=== PATIENT | male | born 1935 | race Caucasian/White ===

== ENCOUNTER → 2017-05-20 | Outpatient (CLI) | payer MEDICARE, BC ==
[~2017-05-20] MED LIST: ATORVASTATIN CA80 MG PO; B-12500 MCG PO; COUMADIN2 MG PO; DIPHENHYDRAMINE25 M1 PO; ELIQUIS PO; FLUTICASONE INH; ISOSORBIDE MONO30 M1 PO; LANOXIN125 MCG PO; LOVENOX80 MG/0.8 SQ; METOPROLOL TART50 MG PO; NORCO 5-325 TA1 EACH PO; OCUVITE SOFTGE1 EACH PO; PLAVIX75 MG PO; XARELTO10 MG PO; Z.0.ALLOPURINOL300 M PO; Z.0.CRESTOR10 MG PO; Z.0.GABAPENTIN300 MG PO; Z.0.OMEPRAZOLE20 M1 PO; [UNRECOGNIZED DRUG - OTHER] PO
[2017-05-20 13:20] LABS: CREATININE, SERUM 2.83 mg/dL (0.72-1.25)
--- NOTE | 2017-05-20 14:36 | Diagnostic Imaging Report ---
EXAM: CT Chest WITHOUT contrast INDICATION: \[id number] \S\1330 \S\LUNG CONSOLIDATION COMPARISON: CT dated 09/20/2015 TECHNIQUE: Chest was scanned utilizing a multidetector helical scanner from the lung apex through the level of the adrenal glands without administration of IV contrast. Absence of intravenous contrast decreases sensitivity for detection of lymphadenopathy and vascular pathology. Coronal and sagittal reformations were obtained. Routine protocol was performed. IV CONTRAST: None COMPLICATIONS: None RADIATION DOSE: Total DLP: 547.82 mGy*cm Estimated effective dose: (DLP x 0.014 x size factor) mSv CTDIvol has been reviewed. It is below the limits set by the Radiation Protocol Committee (RPC). FINDINGS: LINES/ TUBES: Triple lead left chest wall cardiac device in place. LUNGS AND AIRWAYS: Unchanged peripheral right upper lobe, small areas of scarring (series 3, image 25). Slightly less prominent lateral right middle lobe scarring with traction bronchiectasis (series 3, image 71). Bilateral calcified granulomas. Airways are normal. PLEURA: Large right and small left pleural effusions, new from prior exam. HEART AND MEDIASTINUM: The thyroid gland is normal. No mediastinal, hilar or axillary lymphadenopathy. Cardiomegaly. There is no pericardial effusion. Mitral valve prosthesis. Atherosclerotic calcification of coronary arteries and aortic annulus. Main pulmonary artery measures 3.8 cm, suggestive of pulmonary hypertension. Distended ascending thoracic aorta measuring 4.2 cm at the level of right pulmonary artery. UPPER ABDOMEN: Numerous punctate splenic calcified granulomas. New small volume abdominal ascites. Superior tip of aortic stent is visualized. BONES: Degenerative changes of thoracic spine. SOFT TISSUES: Anasarca. IMPRESSION: New large right and small left pleural effusions. Lateral right middle lobe consolidation is less prominent from prior CT and is probably scarring with traction bronchiectasis. New abdominal ascites and anasarca. Evidence of prior granulomatous disease. Signed by: Dr. Bernabe Schmid MD on 05/20/2017 2:32 PM
== END ==
LOC: CT 12:16
PROVIDERS: ATTEND Family Medicine
DX: J18.1 Lobar pneumonia, unspecified organism (principal)
CPT/HCPCS: 36415; 71250; 82565; 84520

== ENCOUNTER 2017-06-01 20:11 | Emergency (ER) | payer MEDICARE, BC ==
[~2017-06-01] VITALS: Ht 182.9 cm; Wt 86.2 kg
--- OUTSIDE RECORDS SUMMARY | 2017-06-01 20:13 | XMS REPORT ---
Author Author [facility] Address Unknown Phone Unavailable Care Team Providers Care Unclaimed Property Officer Name Role Phone NELIA FULLER Unavailable Unavailable JEFF OGDEN Unavailable Unavailable Problems This patient has no known problems. Allergies, Adverse Reactions, Alerts This patient has no known allergies or adverse reactions. Medications This patient has no known medications. Results Test Description Test Time Test Comments Text Results Atomic Results Result Comments CHEST XRAY POST PROCEDURE [place] [address] Patient Name: TERESITA ORTIZ MR #: [id number] : 1935 Age/Sex: 81/M Req #: [id number] Adm Physician: Ordered by: LESLIE MCKNIGHT MD Report #: [id number] Location: US Room/Bed: Procedure: [id number] DX/CHEST XRAY POST PROCEDURE Exam Date: Exam Time: REPORT STATUS: Signed PROCEDURE: CHEST XRAY POST PROCEDURE COMPARISON: CT chest 05/20/2017. INDICATIONS: POST THORACENTESIS FINDINGS: Lines: Left chest cardiac device in proper position. LUNGS: No consolidations or edema. Bibasilar atelectasis. PLEURA: Decrease in the right pleural effusion. Small bilateral pleural effusions remain. No pneumothorax. HEART T MEDIASTINUM: The heart is within normal size-limits. BONES T SOFT TISSUES: No acute findings. CONCLUSION: Decrease in the right pleural effusion. No pneumothorax status post thoracentesis. Dictated by: Leslie Mcknight M.D. on 06/01/2017 at 15:03 Electronically approved by: Leslie Mcknight M.D. on 06/01/2017 at 15:03 Dictated By: LESLIE MCKNIGHT MD 1502 Transcribed By: SARAH on 06/01/17 1503 COPY TO: LESLIE MCKNIGHT MD THORACENTESIS/US GUIDED [place] [address] Patient Name: TERESITA ORTIZ MR #: [id number] : 1935 Age/Sex: 81/M Req #: [id number] [facility] Physician: Ordered by: NELIA FULLER MD Report #: [id number] Location: Room/Bed: Procedure: [id number] US/THORACENTESIS/US GUIDED Exam Date: Exam Time: REPORT STATUS: Signed PROCEDURE: ULTRASOUND GUIDED THORACENTESIS COMPARISON: None. INDICATIONS: RT THORACENTESIS FINDINGS: After informed consent was obtained, the patient was placed in the sitting position and preliminary ultrasound of the posterior chest identified a safe route into the right pleural effusion. The overlying skin was prepped and draped in usual sterile fashion. Lidocaine 1% was used for local anesthesia. Under ultrasound guidance, a centesis needle was advanced into the pleural fluid and 1700 cc were aspirated. The patient tolerated the procedure well and there were no immediate post-procedural complications. A post-thoracentesis chest radiograph will be obtained. CONCLUSION: Uncomplicated ultrasound-guided right thoracentesis with removal of 1700 cc. Dictated by: Leslie Mcknight M.D. on 06/01/2017 at 14 :58 Electronically approved by: Leslie Mcknight M.D. on 06/01/2017 at 14:58 Dictated By: LESLIE MCKNIGHT MD 57 Transcribed By: SARAH on 06/01/171457 COPY TO : NELIA FULLER MD CT CHEST WO [facility] [address] [place] [address] Patient Name: TERESITA ORTIZ MR #: [id number] : 1935 Age/Sex: 81/M Req # : [id number] Adm Physician: Ordered by: JEFF OGDEN DO Report #: [id number] Location: CT Room/Bed: Procedure: [id number] CT/CT CHEST WO Exam Date: 05/20/17 Exam Time: 1330 REPORT STATUS: Signed EXAM: CT Chest WITHOUT contrast INDICATION: COMPARISON: CT dated 09/20/2015 TECHNIQUE: Chest was scanned utilizing a multidetector helical scanner from the lung apex through the level of the adrenal glands without administration of IV contrast. Absence of intravenous contrast decreases sensitivity for detection of lymphadenopathy and vascular pathology. Coronal and sagittal reformations were obtained. Routine protocol was performed. IV CONTRAST: None COMPLICATIONS: None RADIATION DOSE: Total DLP: 547.82 mGy*cm Estimated effective dose: (DLP x 0.014 x size factor) mSv CTDIvol has been reviewed. It is below the limits set by the Radiation Protocol Committee (RPC). FINDINGS: LINES/ TUBES: Triple lead left chest wall cardiac device in place. LUNGS AND AIRWAYS: Unchanged peripheral right upper lobe, small areas of scarring (series 3, image 25). Slightly less prominent lateral right middle lobe scarring with traction bronchiectasis (series 3, image 71). Bilateral calcified granulomas. Airways are normal. PLEURA: Large right and small left pleural effusions, new from prior exam. HEART AND MEDIASTINUM: The thyroid gland is normal. No mediastinal, hilar or axillary lymphadenopathy. Cardiomegaly. There is no pericardial effusion. Mitral valve prosthesis. Atherosclerotic calcification of coronary arteries and aortic annulus. Main pulmonary artery measures 3.8 cm , suggestive of pulmonary hypertension. Distended ascending thoracic aorta measuring 4.2 cm at the level of right pulmonary artery. UPPER ABDOMEN: Numerous punctate splenic calcified granulomas. New small volume abdominal ascites. Superior tip of aortic stent is visualized. BONES: Degenerative changes of thoracic spine. SOFT TISSUES: Anasarca. IMPRESSION: New large right and small left pleural effusions. Lateral right middle lobe consolidation is less prominent from prior CT and is probably scarring with traction bronchiectasis. New abdominal ascites and anasarca. Evidence of prior granulomatous disease. Signed by: Dr. Bernabe Mendieta MD on 05/20/2017 2:32 PM Dictated By: BERNABE MENDIETA MD 1432 Transcribed By: VIC on 05/20/17 1432 COPY TO: JEFF OGDEN DO
== END 2017-06-01 23:07 | disposition home or self-care (01) ==
LOC: FSED 20:40
DX: J95.830 Postprocedural hemorrhage of a respiratory system organ or structure following a respiratory system procedure (principal); I50.9 Heart failure, unspecified; I10 Essential (primary) hypertension
CPT/HCPCS: 71046; 99284

== ENCOUNTER → 2017-06-01 | Outpatient (CLI) | payer MEDICARE, BC ==
--- NOTE | 2017-06-01 14:58 | Diagnostic Imaging Report ---
PROCEDURE: ULTRASOUND GUIDED THORACENTESIS COMPARISON: None. INDICATIONS:RT THORACENTESIS FINDINGS: After informed consent was obtained, the patient was placed in the sitting position and preliminary ultrasound of the posterior chest identified a safe route into the right pleural effusion. The overlying skin was prepped and draped in usual sterile fashion. Lidocaine 1% was used for local anesthesia. Under ultrasound guidance, a centesis needle was advanced into the pleural fluid and 1700 cc were aspirated. The patient tolerated the procedure well and there were no immediate post-procedural complications. A post-thoracentesis chest radiograph will be obtained. CONCLUSION: Uncomplicated ultrasound-guided right thoracentesis with removal of 1700 cc. Dictated by: Marek Duran M.D. on 06/01/2017 at 14:58 Electronically approved by: Marek Duran M.D. on 06/01/2017 at 14:58
--- NOTE | 2017-06-01 15:02 | Diagnostic Imaging Report ---
PROCEDURE: CHEST XRAY POST PROCEDURE COMPARISON: CT chest 05/20/2017. INDICATIONS: POST THORACENTESIS FINDINGS: Lines: Left chest cardiac device in proper position. LUNGS: No consolidations or edema. Bibasilar atelectasis. PLEURA: Decrease in the right pleural effusion. Small bilateral pleural effusions remain. No pneumothorax. HEART \T\ MEDIASTINUM: The heart is within normal size-limits. BONES \T\ SOFT TISSUES: No acute findings. CONCLUSION: Decrease in the right pleural effusion. No pneumothorax status post thoracentesis. Dictated by: Marek Duran M.D. on 06/01/2017 at 15:03 Electronically approved by: Marek Duran M.D. on 06/01/2017 at 15:03
[2017-06-01 15:46] LABS: BODY FLUID APPEARANCE SL.CLOUDY; BODY FLUID COLOR STRAW; BODY FLUID TYPE PLEURAL
[2017-06-01 15:50] LABS: RBC,BODY FLUID 13 cells/uL; WBC,BODY FLUID 8 cells/uL
[2017-06-01 16:18] LABS: LYMPHOCYTES,BODY FLUID 8 %; MONO/MACROPHG,BODY FLUID 77 %; NEUTROPHILS,BODY FLUID 3 %; OTHER CELLS,BODY FLUID 12 %
== END ==
LOC: US 12:07
PROVIDERS: ATTEND Internal Medicine
DX: J90 Pleural effusion, not elsewhere classified (principal)
CPT/HCPCS: 32555; 36415; 71045; 83615; 84157; 84478; 88112; 88305; 89051

== ENCOUNTER → 2017-07-07 | Outpatient (CLI) | payer MEDICARE, BC ==
--- NOTE | 2017-07-07 13:15 | Diagnostic Imaging Report ---
PROCEDURE: CT CHEST WITHOUT CONTRAST CT scan of the chest WITHOUT intravenous contrast, using standard protocol. TECHNIQUE: The chest was scanned utilizing a multidetector helical scanner from the apex to the level of the adrenal glands. No IV contrast was administered as per physician request. Coronal and sagittal multiplanar reformations were obtained. COMPARISON: CT chest 05/20/2017. INDICATIONS: F/U, NICOTINE DEPENDENCE FINDINGS: Lines/tubes: Left chest cardiac device with lead position within the right atrium and ventricle. Lungs and Airways: Stable bibasilar atelectasis. No parenchymal mass. No focal consolidation. Stable scarring in the right upper lobe. Bilateral calcified granulomas. Pleura: Bilateral moderate pleural effusions, increased since the previous examination. Heart and mediastinum: The thyroid gland is normal. No significant mediastinal, hilar or axillary lymphadenopathy is seen. The heart and pericardium are within normal limits. Atherosclerotic calcifications. Soft tissues: Normal. Abdomen: Limited views of the upper abdomen show no abnormality within the visualized liver, spleen, pancreas, or kidneys. The adrenal glands are normal. Stable splenic granulomas. Minimal ascites is present in the right upper quadrant. Bones: The visualized bony thorax is within normal limits. Degenerative changes of the thoracic spine. IMPRESSION: Interval increase in size of the bilateral moderate pleural effusions, right greater the left. Dictated by: Marek Duran M.D. on 07/07/2017 at 13:15 Electronically approved by: Marek Duran M.D. on 07/07/2017 at 13:15
== END ==
LOC: CT 09:13
PROVIDERS: ATTEND Internal Medicine
DX: Z87.891 Personal history of nicotine dependence (principal)
CPT/HCPCS: 71250

== ENCOUNTER → 2017-09-01 | Outpatient (CLI) | payer MEDICARE, BC ==
[2017-09-01 17:30] LABS: ANION GAP 15.8 mmol/L (8-16); CALCIUM 9.4 mg/dL (8.4-10.2); CREATININE, SERUM 2.64 mg/dL (0.72-1.25); POTASSIUM 4.8 mmol/L (3.5-5.1)
--- NOTE | 2017-09-01 17:36 | Diagnostic Imaging Report ---
PROCEDURE: Frontal and lateral views of the chest. COMPARISON: Patients [facility], CT, CT CHEST WO, 07/07/2017, 9:38. INDICATIONS: NICOTINE DEPENDENCE, FLUID IN LUNGS FINDINGS: Lines/tubes: Multilead cardiac device in the left upper chest, with lead distal tips projecting in the right atrium, right ventricle and coronary sinus. Lungs: The lungs are well inflated. Stable linear scarring in the right middle lobe. Mild bilateral lower lobe compressive atelectasis. There is no evidence of pneumonia or pulmonary edema. Pleura: Small bilateral pleural effusions. Heart and mediastinum: Stable mild cardiomegaly. Pulmonary vasculature is normal. Tortuous aorta. Bones: No acute bony abnormality. IMPRESSION: 1. small bilateral pleural effusions with associated bilateral lower lobe atelectasis. 2. Stable linear scarring in the right middle lobe. No consolidation or pulmonary edema. Chacorta Morales M.D. Dictated by: Chacorta Morales M.D. on 09/01/2017 at 17:38 Electronically approved by: Chacorta Morales M.D. on 09/01/2017 at 17:38
== END ==
LOC: RAD 16:21
PROVIDERS: ATTEND Internal Medicine
DX: Z87.891 Personal history of nicotine dependence (principal)
CPT/HCPCS: 36415; 71046; 80048

== ENCOUNTER → 2018-07-31 | Outpatient (CLI) | payer MEDICARE, BC ==
--- NOTE | 2018-07-31 14:34 | Diagnostic Imaging Report ---
EXAMINATION: PA and lateral views of the chest. COMPARISON: CT chest 05/20/2017 . CLINICAL HISTORY: Shortness of breath DISCUSSION: Left subclavian approach implantable cardiac device body and leads. Lungs are well-inflated and without focal airspace consolidation, pleural effusion, or pneumothorax. Linear opacities in both lung bases likely reflect fibrotic change or subsegmental atelectasis. Normal heart size. Tortuous thoracic aorta with atherosclerotic calcification. Enlargement of the main pulmonary artery suggests underlying pulmonary hypertension. Radiopaque mesh device projects over the heart shadow, shown to lie within the left atrial appendage on comparison CT. No overt pulmonary edema. No acute osseous abnormality. IMPRESSION: No acute cardiopulmonary abnormality. Subsegmental atelectasis or linear fibrotic change in the right middle lobe and left lower lobe. Signed by: Dr. Blayne Falk M.D. on 07/31/2018 2:30 PM
== END ==
LOC: RAD 13:54
PROVIDERS: ATTEND Internal Medicine Nephrology
DX: R06.02 Shortness of breath (principal)
CPT/HCPCS: 71046

== ENCOUNTER 2018-08-18 16:19 | Emergency (ER) | payer MEDICARE, BC ==
[~2018-08-18] VITALS: Ht 185.4 cm; Wt 86.2 kg
--- OUTSIDE RECORDS SUMMARY | 2018-08-18 16:24 | XMS REPORT | Continuity of Care Document ---
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,I10 Active 02/25/2016 [facility] AFIB Active 01/01/2016 [facility] PAROXYSMAL ATRIAL FIBRILATION Active 01/01/2016 [facility] Atrial fibrillation Resolved Problem 07/29/2018 [facility] Kidney carcinoma Resolved Problem 07/29/2018 [facility] CHF (<span ID="[id number]">Confirmed</span>) Resolved Problem 07/29/2018 [facility] Hyperlipidemia Resolved Problem 07/29/2018 [facility] HTN (<span ID="[id number]">Confirmed</span>) Resolved Problem 07/29/2018 [facility] ASHLEY (<span ID="[id number]">Confirmed</span>) Resolved Problem 07/29/2018 [facility] Cyst of kidney, [facility]29/[facility] Other specified disorders of kidney and ureter 07/29/2018 [facility] Abdominal aortic ectasia 07/29/2018 [facility] OTHER SPECIFIED CONGENITAL DEFORMITIES Active [facility] CHRONIC ATRIAL FIBRILLATION Active [facility] CHRONIC SYSTOLIC (CONGESTIVE) HEART FAIL Active [facility] ESSENTIAL (PRIMARY) HYPERTENSION Active [facility] Medications Medication Details Route Status Patient Instructions Ordering Provider Order Date Source Aspirin 81 MG Enteric Coated Tablet 81 mg=1 tab, PO, Daily, 0 Refill(s) Active 02/12/2016 [facility] apixaban 2.5 mg oral tablet 2.5 mg=1 tab, PO, Q12H, 0 Refill(s) Active 02/12/2016 [facility] metoprolol 50 mg oral tablet, extended release 50 mg=1 tab, PO, Daily, 0 Refill(s) Active 02/12/2016 [facility] atorvastatin 20 mg oral tablet 20 mg=1 tab, PO, Bedtime, 0 Refill(s) Active 02/12/2016 [facility] allopurinol 100 mg oral tablet 100 mg=1 tab, PO, Daily, 0 Refill(s) Active 02/12/2016 [facility] Aspirin 81 mg, 1 tab, Route: PO, Drug form: ECTAB, Daily, Dosing Weight 86.364, kg, Start date: 02/12/16 9:00:00 PASTRY MIXER, Duration: 30 day, Stop date: 03/12/16 9:00:00 CSTNotes: Do not crush or chew. (Same As: Ecotrin) Inactive 02/12/2016 [facility] Allopurinol 100 mg, 1 tab, Route: PO, Drug form: TAB, Daily, Dosing Weight 86.364, kg, Start date: 02/12/16 9:00:00 PASTRY MIXER, Duration: 30 day, Stop date: 03/12/16 9:00:00 CSTNotes: (Same as: Zyloprim) Inactive 02/12/2016 [facility] Benzocaine 15 MG / Menthol 3.6 MG Lozenge [Cepacol Sore Throat Pain Relief 15/3.6] 1 lozenge, Route: MUCOUS MEM, Drug Form: ELIZA, Dosing Weight 86.364, kg, Q4H, PRN Sore Throat, Start date: 02/11/16 22:31:00 PASTRY MIXER, Duration: 30 day, Stop date: 03/12/16 22:30:00 CSTNotes: Cepacol lozenges Dispense 1 box=16 lozenges (Same As: Cepacol Lozenges) No Longer Active 02/12/2016 [facility] cefdinir 300 MG Oral Capsule 300 mg, 1 cap, Route: PO, Drug form: CAP, Q12H, Dosing Weight 86.364, kg, Start date: 02/11/16 21:00:00 PASTRY MIXER, Duration: 30 day, Stop date: 03/12/16 9:00:00 CSTNotes: (Same As: Omnicef) No Longer Active 02/12/2016 [facility] atorvastatin 20 mg, 1 tab, Route: PO, Drug form: TAB, Bedtime, Dosing Weight 86.364, kg, Start date: 02/11/16 21:00:00 PASTRY MIXER, Duration: 30 day, Stop date: 03/11/16 21:00:00 CSTNotes: (Same As: Lipitor) No Longer Active 02/12/2016 [facility] Eliquis 2.5 mg, 1 tab, Route: PO, Drug form: TAB, Q12H, Dosing Weight 86.364, kg, Start date: 02/11/16 21:00:00 PASTRY MIXER, Duration: 30 day, Stop date: 03/12/16 9:00:00 CSTNotes: Same as: Eliquis No Longer Active 02/12/2016 [facility] Tylenol 325 mg, 1 tab, Route: PO, Drug form: TAB, Q6H, Dosing Weight 86.364, kg, PRN Pain Score 1-3, Start date: 02/11/16 20:38:00 PASTRY MIXER, Duration: 30 day, Stop date: 03/12/16 20:37:00 CSTNotes: Do not exceed 4 gm/day. (Same as: Tylenol) No Longer Active 02/12/2016 [facility] metoprolol extended release 50 mg, 1 tab, Route: PO, Drug form: ERTAB, Daily, Start date: 02/11/16 18:00:00 PASTRY MIXER, Duration: 30 day, Stop date: 03/12/16 9:00:00 CSTNotes: (Same as: Toprol XL) May split tab, but do not crush. No Longer Active 02/12/2016 [facility] pantoprazole 40 mg, 1 tab, Route: PO, Drug form: ECTAB, QPM, Dosing Weight 86.364, kg, Start date: 02/11/16 17:00:00 PASTRY MIXER, Duration: 30 day, Stop date: 03/11/16 17:00:00 CSTNotes: Tablet should not be chewed or cr ushed. (Same as: Protonix) No Longer Active 02/11/2016 [facility] cefdinir 300 MG Oral Capsule 300 mg=1 cap, PO, Q12H, # 14 cap, 0 Refill(s) Active 02/11/2016 [facility] atorvastatin 20 mg oral tablet 20 mg=1 tab, PO, Bedtime, # 30 tab, 0 Refill(s) Active 02/11/2016 [facility] allopurinol 100 mg oral tablet 100 mg=1 tab, PO, Daily, # 60 tab, 0 Refill(s) Active 02/11/2016 [facility] pantoprazole 40 mg oral enteric coated tablet 40 mg=1 tab, PO, Daily, # 30 tab, 0 Refill(s) Active 02/11/2016 [facility] metoprolol 50 mg oral tablet, extended release 50 mg=1 tab, PO, Daily, # 30 tab, 0 Refill(s) Active 02/11/2016 [facility] sodium chloride 0.9% 1000 ml INJ 1,000 mL 1,000 mL, Rate: 50 ml/hr, Infuse over: 20 hr, Route: IV, Dosing Weight 86.364 kg, Total Volume: 1,000, Start date: 02/11/16 9:18:00 PASTRY MIXER, Duration: 30 day, Stop date: 03/12/16 9:17:00 PASTRY MIXER No Longer Active 02/11/2016 [facility] Allergies, Adverse Reactions, Alerts Substance Category Reaction Severity Reaction type Status Date Reported Comments Source No Known Medication Allergies Assertion Drug allergy [facility] Immunizations Immunization Date Given Site Status Last Updated Comments Source Results Order Name Results Value Reference Range Date Interpretation Comments Source Bladder US Bladder US Exam: Bladder ultrasound Reason for Exam: - N18.4 Chronic kidney disease, stage 4 (severe) Comparison Exam: Ultrasound 01/09/2018 Discussion: Multiple sagittal and axial images were obtained of the bladder. There are no abnormal echogenic masses or calcifications seen within the bladder. The mucosa of the bladder is unremarkable. No evidence seen for bladder diverticuli. The right and left ureteral jets are identified. Prostate gland is within normal limits for size. Prevoid bladder volume measures 87.9 cc. Postvoid bladder volume measures 3.4 cc. Impression: 1. Unremarkable bladder ultrasound. 04/26/2018 - - Read by: Jose A Cervantes MD Dictated Date/time: 04/26/18 14:41 Electronically Signed by: Jose A Cervantes MD 04/26/18 14:44 FINAL REPORT [facility] [place] Retroperitoneal Complete US Retroperitoneal Complete US Exam: RETROPERITONEAL ULTRASOUND. Reason for Exam: - N18.4 Chronic kidney disease, stage 4 (severe) Comparison Exam: 01/09/2018 Discussion: Multiplanar grayscale and color Doppler ultrasound of the kidneys, aorta, IVC, and urinary bladder. Right kidney: Size: 10 cm. Cortical thickness measures 0.8 cm. Hydronephrosis: None. Echogenicity: Increased Calculi/Cysts/Masses: A couple of simple small cysts measure up to 1.4 cm. Ureter: none visualized Left kidney: Size: 9.3 cm. Cortical thickness measures 0.9 cm. Hydronephrosis: None. Echogenicity: Increased Calculi/Cysts/Masses: There is a 2.5 cm simple left renal cyst and a couple of smaller cysts. Ureter: none visualized Abdominal aorta/Iliac arteries: The distal aorta is dilated and there is a distal aortic stent. Inferior vena cava: Visualized portions are unremarkable The bladder ultrasound is dictated separately. IMPRESSION: Renal parenchymal echogenicity is increased bilaterally, in keeping with medical renal disease. Bilateral renal cysts. 04/26/2018 - - Read by: uYsra Kelly MD Dictated Date/time: 04/26/18 14:51 Electronically Signed by: Yusra Kelly MD 04/26/18 14:57 FINAL REPORT DAVID Contreras Retroperitoneal Complete US Retroperitoneal Complete US Exam: Bilateral renal ultrasound and bladder ultrasound. Reason for Exam: - ckd stage 4 Comparison Exam: None Discussion: Multiplanar grayscale and color Doppler ultrasound of the kidneys, aorta, IVC, and urinary bladder. Right kidney: Size: 10.0 x 5.0 x 4.8 cm. Cortical thickness measures 1.2 cm. Hydronephrosis: Moderate pelviectasis Echogenicity: Unremarkable Calculi/Cysts/Masses: Multiple cysts are seen. The largest measures 1.6 x 1.5 x 1.4 cm. Left kidney: Size: 9.2 x 4.4 x 4.4 cm. Cortical thickness measures 0.9 cm. Hydronephrosis: None. Echogenicity: Unremarkable Calculi/Cysts/Masses: Multiple cysts are seen. The largest measures 3.0 x 2.8 x 2.5 cm. Abdominal aorta/Iliac arteries: Abdominal aorta is dilated measuring up to 4.4 cm in diameter. Inferior vena cava: Visualized portions are unremarkable Bladder: No mucosal abnormalities identified. No calcified stones seen within the bladder. No bladder diverticuli identified. Prevoid bladder volume measures 246 mL. Postvoid bladder volume measures 9 mL. Bilateral ureteral jets are identified. IMPRESSION: 1. Multiple cysts seen within the kidneys as detailed above. Moderate right renal pelviectasis. Consider further evaluation with CT scan if clinically feasible. 2. Abdominal aorta is dilated measuring up to 4.4 cm in diameter. Recommend 12 month follow-up exam as well as vascular surgery consultation. 01/09/2018 - - Read by: Jose A Cervantes MD Dictated Date/time: 01/09/18 15:35 Electronically Signed by: Jose A Cervantes MD 01/09/18 15:47 FINAL REPORT DAVID Contreras Bladder US Bladder US Exam: Bilateral renal ultrasound and bladder ultrasound. Reason for Exam: - ckd stage 4 Comparison Exam: None Discussion: Multiplanar grayscale and color Doppler ultrasound of the kidneys, aorta, IVC, and urinary bladder. Right kidney: Size: 10.0 x 5.0 x 4.8 cm. Cortical thickness measures 1.2 cm. Hydronephrosis: Moderate pelviectasis Echogenicity: Unremarkable Calculi/Cysts/Masses: Multiple cysts are seen. The largest measures 1.6 x 1.5 x 1.4 cm. Left kidney: Size: 9.2 x 4.4 x 4.4 cm. Cortical thickness measures 0.9 cm. Hydronephrosis: None. Echogenicity: Unremarkable Calculi/Cysts/Masses: Multiple cysts are seen. The largest measures 3.0 x 2.8 x 2.5 cm. Abdominal aorta/Iliac arteries: Abdominal aorta is dilated measuring up to 4.4 cm in diameter. Inferior vena cava: Visualized portions are unremarkable Bladder: No mucosal abnormalities identified. No calcified stones seen within the bladder. No bladder diverticuli identified. Prevoid bladder volume measures 246 mL. Postvoid bladder volume measures 9 mL. Bilateral ureteral jets are identified. IMPRESSION: 1. Multiple cysts seen within the kidneys as detailed above. Moderate right renal pelviectasis. Consider further evaluation with CT scan if clinically feasible. 2. Abdominal aorta is dilated measuring up to 4.4 cm in diameter. Recommend 12 month follow-up exam as well as vascular surgery consultation. 01/09/2018 - - Read by: Jose A Cervantes MD Dictated Date/time: 01/09/18 15:35 Electronically Signed by: Jose A Cervantes MD 01/09/18 15:47 FINAL REPORT DAVID Contreras CHEM PANEL eGFR 23 mL/min/1.73m2 02/12/2016 Result Comment: The eGFR is calculated using the CKD-EPI formula. In most young, healthy individuals the eGFR will be >90 mL/min/1.73m2. The eGFR declines with age. An eGFR of 60-89 may be normal in some populations, particularly the elderly, for whom the CKD-EPI formula has not been extensively validated. Use of the eGFR is not recommended in the following populations: Individuals with unstable creatinine concentrations, including patients and those with serious co-morbid conditions. Patients with extremes in muscle mass or diet. The data above are obtained from the National Kidney Disease Education Program (NKDEP) which additionally recommends that when the eGFR is used in patients with extremes of body mass index for purposes of drug dosing, the eGFR should be multiplied by the estimated BMI. [facility] CHEM PANEL Glucose Lvl 109 mg/dL 70 - 99 02/12/2016 [facility] CHEM PANEL Creatinine Lvl 2.57 mg/dL 0.50 - 1.40 02/12/2016 [facility] CHEM PANEL BUN 40 mg/dL 7 - 22 02/12/2016 [facility] CHEM PANEL Sodium Lvl 141 meq/L 135 - 145 02/12/2016 [facility] CHEM PANEL Chloride Lvl 106 meq/L 95 - 109 02/12/2016 [facility] CHEM PANEL Potassium Lvl 4.6 meq/L 3.5 - 5.1 02/12/2016 [facility] CHEM PANEL Calcium Lvl 8.3 mg/dL 8.5 - 10.5 02/12/2016 [facility] CHEM PANEL CO2 26 meq/L 24 - 32 02/12/2016 [facility] CHEM PANEL AGAP 13.6 meq/L 10.0 - 20.0 02/12/2016 [facility] Chest 2 views DX Chest 2 views DX EXAM: XR CHEST 2 VIEWS DATE: 02/12/2016 3:00 AM PASTRY MIXER INDICATION: Line Placement COMPARISON: None FINDINGS: Left chest wall pacemaker is present with leads overlying the right atrium and right ventricle. The cardiac silhouette is not distinctly enlarged. There is tortuosity and probable ectasia of the descending thoracic aorta. On the lateral view descending thoracic aorta measures 5 cm. Arch measures 4.8 cm. Closure device is partially visualized. While evaluation is limited given semi-erect positioning, no distinct pneumothorax is identified. Linear opacity in the right midlung has the appearance of atelectasis. Minimal atelectasis present in the lung bases. IMPRESSION: 1. Left chest wall pacemaker is above. 2. 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 3. Basilar atelectasis. 02/12/2016 - - Read by: Renan Florian MD Dictated Date/time: 02/12/16 10:32 Electronically Signed by: Renan Florian MD 02/12/16 10:34 FINAL REPORT [facility] CHEM PANEL Phosphorus 3.0 mg/dL 2.5 - 4.5 02/12/2016 [facility] CHEM PANEL Magnesium Lvl 1.9 mg/dL 1.8 - 2.4 02/12/2016 [facility] ELECTROLYTES CO2 19 meq/L 24 - 32 02/12/2016 [facility] ELECTROLYTES Chloride Lvl 107 meq/L 95 - 109 02/12/2016 [facility] ELECTROLYTES Potassium Lvl 6.1 meq/L 3.5 - 5.1 02/12/2016 [facility] ELECTROLYTES Sodium Lvl 137 meq/L 135 - 145 02/12/2016 [facility] ELECTROLYTES Calcium Lvl 8.1 mg/dL 8.5 - 10.5 02/12/2016 [facility] ELECTROLYTES AGAP 17.1 meq/L 10.0 - 20.0 02/12/2016 [facility] ELECTROLYTES Creatinine Lvl 2.28 mg/dL 0.50 - 1.40 02/12/2016 [facility] ELECTROLYTES BUN 34 mg/dL 7 - 22 02/12/2016 [facility] ELECTROLYTES Glucose Lvl 58 mg/dL 70 - 99 02/12/2016 [facility] ELECTROLYTES eGFR 26 mL/min/1.73m2 02/12/2016 Result Comment: The eGFR is calculated using the CKD-EPI formula. In most young, healthy individuals the eGFR will be >90 mL/min/1.73m2. The eGFR declines with age. An eGFR of 60-89 may be normal in some populations, particularly the elderly, for whom the CKD-EPI formula has not been extensively validated. Use of the eGFR is not recommended in the following populations: Individuals with unstable creatinine concentrations, including patients and those with serious co-morbid conditions. Patients with extremes in muscle mass or diet. The data above are obtained from the National Kidney Disease Education Program (NKDEP) which additionally recommends that when the eGFR is used in patients with extremes of body mass index for purposes of drug dosing, the eGFR should be multiplied by the estimated BMI. [facility] HEMATOLOGY Eosinophils 2.8 % 0.0 - 4.0 02/12/2016 [facility] HEMATOLOGY Monocytes 7.2 % 2.0 - 12.0 02/12/2016 [facility] HEMATOLOGY Basophils 0.5 % 0.0 - 1.0 02/12/2016 [facility] HEMATOLOGY Segs-Bands # 6.8 K/CMM 1.5 - 8.1 02/12/2016 [facility] HEMATOLOGY Lymphocytes # 1.1 K/CMM 1.0 - 5.5 02/12/2016 [facility] HEMATOLOGY Eosinophils # 0.2 K/CMM 0.0 - 0.5 02/12/2016 [facility] HEMATOLOGY Monocytes # 0.6 K/CMM 0.0 - 0.8 02/12/2016 [facility] HEMATOLOGY Lymphocytes 12.6 % 20.0 - 40.0 02/12/2016 [facility] HEMATOLOGY Segs 76.9 % 45.0 - 75.0 02/12/2016 [facility] HEMATOLOGY MCH 32.4 pg 27.0 - 31.0 02/12/2016 [facility] HEMATOLOGY MCHC 34.4 g/dL 32.0 - 36.0 02/12/2016 [facility] HEMATOLOGY RDW 13.4 % 11.5 - 14.5 02/12/2016 [facility] HEMATOLOGY MPV 10.1 fL 7.4 - 10.4 02/12/2016 [facility] HEMATOLOGY Platelet 177 K/CMM 133 - 450 02/12/2016 [facility] HEMATOLOGY RBC 3.55 M/CMM 4.70 - 6.10 02/12/2016 [facility] HEMATOLOGY WBC 8.8 K/CMM 3.7 - 10.4 02/12/2016 [facility] HEMATOLOGY Hgb 11.5 g/dL 14.0 - 18.0 02/12/2016 [facility] HEMATOLOGY MCV 94.1 fL 80.0 - 94.0 02/12/2016 [facility] HEMATOLOGY Hct 33.4 % 42.0 - 54.0 02/12/2016 [facility] BLOOD BANK RESULTS RBC product Product available (02/11/16 9:20 AM) 02/11/2016 [facility] BLOOD BANK RESULTS Antibody Scrn Negative (02/11/16 9:20 AM) 02/11/2016 [facility] BLOOD BANK RESULTS ABO/Rh A POS 02/11/2016 [facility] CHEM PANEL Magnesium Lvl 1.8 mg/dL 1.8 - 2.4 02/11/2016 [facility] ELECTROLYTES AGAP 12.5 meq/L 10.0 - 20.0 02/11/2016 [facility] ELECTROLYTES eGFR 25 mL/min/1.73m2 02/11/2016 Result Comment: The eGFR is calculated using the CKD-EPI formula. In most young, healthy individuals the eGFR will be >90 mL/min/1.73m2. The eGFR declines with age. An eGFR of 60-89 may be normal in some populations, particularly the elderly, for whom the CKD-EPI formula has not been extensively validated. Use of the eGFR is not recommended in the following populations: Individuals with unstable creatinine concentrations, including patients and those with serious co-morbid conditions. Patients with extremes in muscle mass or diet. The data above are obtained from the National Kidney Disease Education Program (NKDEP) which additionally recommends that when the eGFR is used in patients with extremes of body mass index for purposes of drug dosing, the eGFR should be multiplied by the estimated BMI. [facility] ELECTROLYTES Sodium Lvl 142 meq/L 135 - 145 02/11/2016 [facility] ELECTROLYTES BUN 38 mg/dL 7 - 22 02/11/2016 [facility] ELECTROLYTES Creatinine Lvl 2.37 mg/dL 0.50 - 1.40 02/11/2016 [facility] ELECTROLYTES Calcium Lvl 9.1 mg/dL 8.5 - 10.5 02/11/2016 [facility] ELECTROLYTES Chloride Lvl 107 meq/L 95 - 109 02/11/2016 [facility] ELECTROLYTES CO2 27 meq/L 24 - 32 02/11/2016 [facility] ELECTROLYTES Potassium Lvl 4.5 meq/L 3.5 - 5.1 02/11/2016 [facility] ELECTROLYTES Glucose Lvl 106 mg/dL 70 - 99 02/11/2016 [facility] HEMATOLOGY Eosinophils # 0.4 K/CMM 0.0 - 0.5 02/11/2016 [facility] HEMATOLOGY Monocytes # 0.7 K/CMM 0.0 - 0.8 02/11/2016 [facility] HEMATOLOGY Lymphocytes 11.6 % 20.0 - 40.0 02/11/2016 [facility] HEMATOLOGY Eosinophils 5.2 % 0.0 - 4.0 02/11/2016 [facility] HEMATOLOGY Monocytes 9.4 % 2.0 - 12.0 02/11/2016 [facility] HEMATOLOGY Basophils 0.6 % 0.0 - 1.0 02/11/2016 [facility] HEMATOLOGY Segs-Bands # 5.2 K/CMM 1.5 - 8.1 02/11/2016 [facility] HEMATOLOGY Lymphocytes # 0.8 K/CMM 1.0 - 5.5 02/11/2016 [facility] HEMATOLOGY Segs 73.2 % 45.0 - 75.0 02/11/2016 [facility] HEMATOLOGY Hct 37.1 % 42.0 - 54.0 02/11/2016 [facility] HEMATOLOGY MCV 93.9 fL 80.0 - 94.0 02/11/2016 [facility] HEMATOLOGY MPV 8.7 fL 7.4 - 10.4 02/11/2016 [facility] HEMATOLOGY Platelet 169 K/CMM 133 - 450 02/11/2016 [facility] HEMATOLOGY MCHC 33.2 g/dL 32.0 - 36.0 02/11/2016 [facility] HEMATOLOGY MCH 31.2 pg 27.0 - 31.0 02/11/2016 [facility] HEMATOLOGY RDW 13.3 % 11.5 - 14.5 02/11/2016 [facility] HEMATOLOGY WBC 7.1 K/CMM 3.7 - 10.4 02/11/2016 [facility] HEMATOLOGY Hgb 12.3 g/dL 14.0 - 18.0 02/11/2016 [facility] HEMATOLOGY RBC 3.96 M/CMM 4.70 - 6.10 02/11/2016 [facility] HEMATOLOGY PT 15.2 s 12.0 - 14.7 02/11/2016 [facility] HEMATOLOGY INR 1.18 0.85 - 1.17 02/11/2016 [facility] HEMATOLOGY PTT 36.1 s 22.9 - 35.8 02/11/2016 [facility] BLOOD BANK RESULTS ABO/Rh A POS 02/02/2016 [facility] BLOOD BANK RESULTS Antibody Scrn Negative (02/02/16 12:25 PM) 02/02/2016 [facility] Vital Signs Vital Sign Value Date Comments Source Height 182.88 cm 03/30/2016 [facility] BMI Calculated 25.82 03/30/2016 [facility] Weight 86.364 03/30/2016 [facility] Systolic (mm Hg) 156 02/12/2016 [facility] Diastolic (mm Hg) 76 02/12/2016 [facility] Systolic (mm Hg) 166 02/12/2016 [facility] Diastolic (mm Hg) 73 02/12/2016 [facility] Systolic (mm Hg) 151 02/12/2016 [facility] Diastolic (mm Hg) 66 02/12/2016 [facility] Respitory Rate 18 02/12/2016 [facility] Respitory Rate 20 02/12/2016 [facility] Respitory Rate 13 02/12/2016 [facility] Weight 86.364 02/11/2016 [facility] BMI Calculated 25.82 02/11/2016 [facility] Height 182.88 cm 02/11/2016 [facility] Encounters Location Location Details Encounter Type Encounter Number Reason For Visit Attending Provider ADM Date DC Date Status Source [facility] Inpatient [id number] Josiane Medina 02/11/2016 02/13/2016 [facility] Outpatient [id number] Josiane Medina 03/30/2016 03/31/2016 [facility] [id number] Jacoby Rodríguez 01/09/2018 01/10/2018 [facility] [id number] Darci Galindo 04/26/2018 04/27/2018 [facility] [place] Procedures Procedure Code Date Perfomer Comments Source Cataract extraction [id number] [facility] [place] Pacemaker care management [id number] [facility] [place] Cataract extraction [id number] [facility] Pacemaker care management [id number] [facility]
--- OUTSIDE RECORDS SUMMARY | 2018-08-18 16:24 | XMS REPORT | Summary of Care ---
Author Author [facility] [place] Organization [facility] [place] Address Unknown Phone Unavailable Encounter HQ Richar_steve(FIN) [id number] Date(s): 04/26/18 - 04/26/18 [facility] [place] [address] [place] [address] [phone] Discharge Disposition: Home or Self Care Attending Physician: Darci Galindo MD Referring Physician: Darci Galindo MD Vital Signs No data available for this section Problem List Condition Effective Dates Status Health Status Informant Atrial Resolved fibrillation(Confirm ed) Kidney Resolved carcinoma(Confirmed) CHF (congestive Resolved heart failure)(Confirmed) Hyperlipidemia(Confi Resolved rmed) HTN Resolved (hypertension)(Confi rmed) ASHLEY (obstructive Resolved sleep apnea)(Confirmed) Allergies, Adverse Reactions, Alerts Substance Reaction Severity Status NKDA Active Medications No data available for this section Results No data available for this section Immunizations No data available for this section Procedures Procedure Date Related Diagnosis Body Site Status Cataract extraction Completed Pacemaker care management Completed Social History Social History Type Response Alcohol Current, Type Beer, Wine. Frequency: Daily. Previous treatment: None. Alcohol use interferes with work or home: No. Drinks more than intended: No. Others hurt by drinking: No. Ready to change: No. Household alcohol concerns: No. Smoking Status Never smoker; Ready to change: No; Concerns about tobacco use in household: No; Exposure to Tobacco Smoke None; Cigarette Smoking Last 365 Days Yes; Reg Smoking Cessation Counseling No entered on: 02/11/16 Assessment and Plan No data available for this section
--- OUTSIDE RECORDS SUMMARY | 2018-08-18 16:24 | XMS REPORT | Summary of Care ---
Author Author [facility] [place] Organization [facility] [place] Address Unknown Phone Unavailable Encounter HQ Rj(FIN) [id number] Date(s): 01/09/18 - 01/09/18 [facility] [place] [address] [place] [address]- [facility] [phone] Encounter Diagnosis Chronic kidney disease, stage 4 (severe) (Final) - 01/12/18 Cyst of kidney, acquired (Final) - Other specified disorders of kidney and ureter (Final) - Abdominal aortic ectasia (Final) - Discharge Disposition: Home or Self Care Attending Physician: Jacoby Rodríguez MD Referring Physician: Jacoby Rodríguez MD Vital Signs No data available for this section Problem List Condition Effective Dates Status Health Status Informant Atrial Resolved fibrillation(Confirm ed) Kidney Resolved carcinoma(Confirmed) CHF (congestive Resolved heart failure)(Confirmed) Hyperlipidemia(Confi Resolved rmed) HTN Resolved (hypertension)(Confi rmed) ASHLEY (obstructive Resolved sleep apnea)(Confirmed) Allergies, Adverse Reactions, Alerts No Known Medication Allergies Medications No data available for this section [...]
--- OUTSIDE RECORDS SUMMARY | 2018-08-18 16:24 | XMS REPORT | Summary of Care ---
Author Author [facility] Organization [facility] Address Unknown Phone Unavailable Encounter HQ Richar_steve(CHRISTIAN) [id number] Date(s): 03/30/16 - 03/30/16 [facility] [address] [place] [address] [phone] Discharge Disposition: Home or Self Care Attending Physician: Josiane Medina MD Referring Physician: Josiane Medina MD Vital Signs Most recent to 1 oldest [Reference Range]: Height 182.88 cm (03/30/16 10:07 AM) Weight 86.364 kg (03/30/16 10:07 AM) Body Mass Index 25.82 m2 (03/30/16 10:07 AM) Problem List Condition Effective Dates Status Health [...] Procedures Procedure Date Related Diagnosis Body Site Cataract extraction Pacemaker care management Social History Social History Type Response Alcohol [...] Days Yes; Reg Smoking Cessation Counseling No Assessment and Plan No data available for this section
--- OUTSIDE RECORDS SUMMARY | 2018-08-18 16:24 | XMS REPORT | Clinical Summary ---
Author Author [facility] Address Unknown Phone Unavailable Care Team Providers Care Cigarette Book Maker Name Role Phone Marek Perez Unavailable Allergies No Known Allergies Medications End Date Status Medication Sig Dispensed Refills Start Date 06/23/2019 Active traMADol (ULTRAM) 50 mg Take 1 tablet 20 tablet 0 tablet (50 mg total) 9 by mouth every 6 (six) hours as needed for Pain. Max Daily Amount: 200 mg Active Problems Problem Noted Date ESRD needing dialysis 06/23/2018 Encounters Care Team Description Date Type Specialty Marques Boswell MD CREATION,A-V FISTULA 06/23/2018 Surgery Steven Mayorga AA 06/23/2018 Anesthesia Event Marques Boswell MD ESRD needing dialysis (HCC) (Primary Dx) 06/23/2018 Hospital Encounter Marques Boswell MD 06/22/2018 Hospital Cardiology Encounter Marques Boswell MD ESRD needing dialysis (HCC) 06/22/2018 Hospital Pre-Admission Testing Encounter Nichole Sanchez RN 06/21/2018 Orders Only Cardiology Resource, [facility] Preadmit Phone 06/15/2018 Hospital Pre-Admission Testing Encounter after 08/17/2017 Social History Date Tobacco Use Types Packs/Day Years Used Quit: 2013 Former Smoker Smokeless Tobacco: Never Used Comments: pipe Alcohol Use Drinks/Week oz/Week Comments Yes 2 jiggers/day Sex Assigned at Date Recorded Not on file Industry Job Start Date Occupation Not on file Not on file Not on file Travel End Travel History Travel Start No recent travel history available. Last Filed Vital Signs Time Taken Vital Sign Reading 06/23/2018 2:45 PM CDT Blood Pressure 120/66 06/23/2018 2:45 PM CDT Pulse 70 06/23/2018 12:01 PM CDT Temperature 36 C (96.8 F) 06/23/2018 2:45 PM CDT Respiratory Rate 20 06/23/2018 2:45 PM CDT Oxygen Saturation 100% - Inhaled Oxygen - Concentration 06/23/2018 5:35 AM CDT Weight 80.7 kg (177 lb 14.4 oz) 06/23/2018 5:35 AM CDT Height 182.9 cm (6') 06/23/2018 5:35 AM CDT Body Mass Index 24.13 Plan of Treatment Not on file Procedures Comments Procedure Name Priority Date/Time Associated Diagnosis TRANSFUSION SERVICE 06/23/2018 REPORT - SCAN 6:04 PM CDT CREATION,A-V FISTULA 06/23/2018 Chronic kidney disease, 8:00 AM CDT stage V (HCC) Case Notes 2 HRS HGB/HCT (H&H) - STAT LAB Routine 06/23/2018 6:18 AM CDT GLUCOSE-STAT LAB STAT 06/23/2018 6:18 AM CDT POTASSIUM-STAT LAB STAT 06/23/2018 6:18 AM CDT POCT-GLUCOSE METER Routine 06/23/2018 5:39 AM CDT TYPE AND SCREEN, Routine 06/22/2018 AUTOMATED 2:32 PM CDT POTASSIUM STAT 06/22/2018 2:32 PM CDT HEMOGLOBIN AND HEMATOCRIT Routine 06/22/2018 2:32 PM CDT GLUCOSE STAT 06/22/2018 2:32 PM CDT ECG 12-LEAD Routine 06/22/2018 1:37 PM CDT Procedure Note - Interface, External Ris In - 06/22/2018 5:54 PM CDT Ventricula r Rate 70 BPM Atrial Rate 72 BPM QRS Duration 150 ms Q-T Interval 450 ms QTC Calculatio n(Bazett) 486 ms R [place] 264 degrees T [place] 89 degrees Ventricul ar-paced rhythm Biventricu lar pacemaker detected Abnormal ECG When compared with ECG of 2 08:09, Electronic ventricula r pacemaker has replaced Sinus rhythm ECG 12-LEAD Routine 06/22/2018 1:37 PM CDT after 08/17/2017 Results * TRANSFUSION SERVICE REPORT - SCAN (06/23/2018 6:04 PM CDT) Narrative Performed At * Potassium-Stat Lab (06/23/2018 6:18 AM CDT) Potassium 5.0 3.6 - 5.5 meq/L [facility] Specimen Blood, Arterial Performing Organization Address [facility] [place] [address] [phone] [place] [address] * Glucose-Stat Lab (06/23/2018 6:18 AM CDT) Glucose 83 70 - 110 mg/dL [facility] Specimen Blood, Arterial Performing Organization Address [facility] Phone Number [address] * HGB/HCT (H&H)-Stat Lab (06/23/2018 6:18 AM CDT) Hemoglobin 13.9 13.0 - 16.8 g/dL [facility] Hematocrit 41.0 40.0 - 50.0 % [facility] Specimen Blood, Arterial Performing Organization Address [facility] [place] Phone Number [address] * POC-Glucose meter (06/23/2018 5:39 AM CDT) POC-Glucose Meter 95Comment: TESTED AT [facility] 70 - 110 mg/dL [address] Specimen Blood Performing Organization Address [facility] [place] [address] [phone] [place] [address] * Type and screen, automated (06/22/2018 2:32 PM CDT) ABO/RH AUTOMATED (BEAKER) A POSITIVE [facility] Ab Scrn NEGATIVE [facility] Specimen Blood Performing Organization Address [facility] Phone Number [address] * Hemoglobin and hematocrit (06/22/2018 2:32 PM CDT) Hemoglobin 12.9 (L) 13.7 - 17.5 GM/DL [facility] Hematocrit 40.1 40.1 - 51.0 % [facility] Specimen Blood Performing Organization Address [facility] Phone Number [address] * Potassium (06/22/2018 2:32 PM CDT) Potassium 5.7 (H) 3.5 - 5.1 meq/L [facility] Specimen Blood Narrative Performed At If diabetic [facility] If Potassium greater than 5.5 mEq/L, call production maintenance technician [facility] Performing Organization Address [facility] Phone Number [address] * Glucose (06/22/2018 2:32 PM CDT) Glucose 88 70 - 105 mg/dL [facility] Specimen Blood Narrative Performed At If diabetic [facility] If Potassium greater than 5.5 mEq/L, call production maintenance technician [facility] Performing Organization Address [facility] Phone Number [address] [address] [phone] [address] * ECG 12 lead (06/22/2018 1:37 PM CDT) Specimen Narrative Performed At Ventricular Rate 70 BPM GE MUSE Atrial Rate 72 BPM QRS Duration 150 ms Q-T Interval 450 ms QTC Calculation(Bazett) 486 ms R Damascus 264 degrees T Damascus 89 degrees Ventricular-paced rhythm Biventricular pacemaker detected Abnormal ECG When compared with ECG of 13-MAR-2012 08:09, Electronic ventricular pacemaker has replaced Sinus rhythm Confirmed by MD LEYVA JOSEPH P ([id number]) on 06/23/2018 6:22:38 AM Procedure Note Interface, External Ris In - 06/23/2018 6:22 AM CDT Ventricular Rate 70 BPM Atrial Rate 72 BPM QRS Duration 150 ms Q-T Interval 450 ms QTC Calculation(Bazett) 486 ms R [place] 264 degrees T [place] 89 degrees Ventricular-paced rhythm Biventricular pacemaker detected Abnormal ECG When compared with ECG of 13-MAR-2012 08:09, Electronic ventricular pacemaker has replaced Sinus rhythm Confirmed by MD LEYVA JOSEPH P ([id number]) on 06/23/2018 6:22:38 AM Performing Organization Address City/State/Zipcode Phone Number GE MUSE after 08/17/2017 Insurance Payer Benefit Subscriber ID Type Phone Address Plan / Group MEDICARE MEDICARE A xxxxxxxxxxx Medicare B BLUE CROSS/BLUE SHIELD BCBS FED xxxxxxxxx PPO [phone] [address] [place] [address] Advance Directives For more information, please contact: [facility] [address] [place] [address] Date Inactivated Comments Code Status Date Activated 06/23/2018 5:40 PM Full Code 06/23/2018 5:59 AM This code status was determined by: Patient
--- OUTSIDE RECORDS SUMMARY | 2018-08-18 16:24 | XMS REPORT | Summary of Care ---
Author Author [facility] Organization [facility] Address Unknown Phone Unavailable Encounter HQ Rj(CHRISTIAN) [id number] Date(s): 02/11/16 - 02/12/16 [facility] [address] [employer] provided by [employer] [facility] [employer] [place] [address]- Discharge Disposition: Home or Self Care Attending Physician: Josiane Medina MD Admitting Physician: Josiane Medina MD Referring Physician: Josiane Medina MD Vital Signs 1 2 3 Most recent to oldest [Reference Range]: 182.88 cm (02/11/16 9:13 AM) Height 156/76 mmHg *HI* (02/12/16 5:00 PM) 166/73 mmHg *HI* (02/12/16 4:00 PM) 151/66 mmHg *HI* (02/12/16 3:00 PM) Blood Pressure [90-140/60-90 mmHg] 18 BRMIN (02/11/16 8:15 PM) 20 BRMIN (02/11/16 7:30 PM) 13 BRMIN *LOW* (02/11/16 7:00 PM) Respiratory Rate [14-20 BRMIN] 86.364 kg (02/11/16 9:13 AM) Weight 25.82 m2 (02/11/16 9:13 AM) Body Mass Index Problem List Condition Effective Dates Status Health Status Informant Atrial Resolved fibrillation(Confirm ed) Kidney Resolved carcinoma(Confirmed) CHF (congestive Resolved heart failure)(Confirmed) Hyperlipidemia(Confi Resolved rmed) HTN Resolved (hypertension)(Confi rmed) ASHLEY (obstructive Resolved sleep apnea)(Confirmed) Allergies, Adverse Reactions, Alerts Substance Reaction Severity Status NKDA Active Medications allopurinol 100 mg, 1 tab, Route: PO, Drug form: TAB, Daily, Dosing Weight 86.364, kg, Start date: 02/12/16 9:00:00 EVP OPERATIONS, Duration: 30 day, Stop date: 03/12/16 9:00:00 EVP OPERATIONS Notes: (Same as: Zyloprim) Start Date: 02/12/16 Stop Date: 02/12/16 Status: Discontinued allopurinol 100 mg oral tablet 100 mg=1 tab, PO, Daily, # 60 tab, 0 Refill(s) Start Date: 02/11/16 Status: Ordered allopurinol 100 mg oral tablet 100 mg=1 tab, PO, Daily, 0 Refill(s) Start Date: 02/12/16 Status: Ordered apixaban 2.5 mg oral tablet 2.5 mg=1 tab, PO, Q12H, 0 Refill(s) Start Date: 02/12/16 Status: Ordered aspirin 81 mg, 1 tab, Route: PO, Drug form: ECTAB, Daily, Dosing Weight 86.364, kg, Star t date: 02/12/16 9:00:00 EVP OPERATIONS, Duration: 30 day, Stop date: 03/12/16 9:00:00 EVP OPERATIONS Notes: Do not crush or chew.(Same As: Ecotrin) Start Date: 02/12/16 Stop Date: 02/12/16 Status: Discontinued aspirin 81 mg tablet, enteric coated 81 mg=1 tab, PO, Daily, 0 Refill(s) Start Date: 02/12/16 Status: Ordered atorvastatin 20 mg, 1 tab, Route: PO, Drug form: TAB, Bedtime, Dosing Weight 86.364, kg, Star t date: 02/11/16 21:00:00 EVP OPERATIONS, Duration: 30 day, Stop date: 03/11/16 21:00:00 CS T Notes: (Same As: Lipitor) Start Date: 02/11/16 Stop Date: 02/12/16 Status: Discontinued atorvastatin 20 mg oral tablet 20 mg=1 tab, PO, Bedtime, # 30 tab, 0 Refill(s) Start Date: 02/11/16 Status: Ordered atorvastatin 20 mg oral tablet 20 mg=1 tab, PO, Bedtime, 0 Refill(s) Start Date: 02/12/16 Status: Ordered cefdinir 300 mg oral capsule 300 mg=1 cap, PO, Q12H, # 14 cap, 0 Refill(s) Start Date: 02/11/16 Stop Date: 02/18/16 Status: Ordered cefdinir 300 mg oral capsule 300 mg, 1 cap, Route: PO, Drug form: CAP, Q12H, Dosing Weight 86.364, kg, Start date: 02/11/16 21:00:00 EVP OPERATIONS, Duration: 30 day, Stop date: 03/12/16 9:00:00 EVP OPERATIONS Notes: (Same As: Omnicef) Start Date: 02/11/16 Stop Date: 02/12/16 Status: Discontinued Cepacol Sore Throat 15 mg-3.6 mg mucous membrane lozenge 1 lozenge, Route: MUCOUS MEM, Drug Form: ELIZA, Dosing Weight 86.364, kg, Q4H, PRN Sore Throat, Start date: 02/11/16 22:31:00 EVP OPERATIONS, Duration: 30 day, Stop date: 22:30:00 EVP OPERATIONS Notes: Cepacol lozengesDispense 1 box=16 lozenges (Same As: Cepacol Lozenges) Start Date: 02/11/16 Stop Date: 02/12/16 Status: Discontinued Eliquis 2.5 mg, 1 tab, Route: PO, Drug form: TAB, Q12H, Dosing Weight 86.364, kg, Start date: 02/11/16 21:00:00 EVP OPERATIONS, Duration: 30 day, Stop date: 03/12/16 9:00:00 EVP OPERATIONS Notes: Same as: Eliquis Start Date: 02/11/16 Stop Date: 02/12/16 Status: Discontinued metoprolol 50 mg oral tablet, extended release 50 mg=1 tab, PO, Daily, # 30 tab, 0 Refill(s) Start Date: 02/11/16 Status: Ordered metoprolol 50 mg oral tablet, extended release 50 mg=1 tab, PO, Daily, 0 Refill(s) Start Date: 02/12/16 Status: Ordered metoprolol extended release 50 mg, 1 tab, Route: PO, Drug form: ERTAB, Daily, Start date: 02/11/16 18:00:00 EVP OPERATIONS, Duration: 30 day, Stop date: 03/12/16 9:00:00 EVP OPERATIONS Notes: (Same as: Toprol XL) May split tab, but do not crush. Start Date: 02/11/16 Stop Date: 02/12/16 Status: Discontinued pantoprazole 40 mg, 1 tab, Route: PO, Drug form: ECTAB, QPM, Dosing Weight 86.364, kg, Start date: 02/11/16 17:00:00 EVP OPERATIONS, Duration: 30 day, Stop date: 03/11/16 17:00:00 EVP OPERATIONS Notes: Tablet should not be chewed or crushed.(Same as: Protonix) Start Date: 02/11/16 Stop Date: 02/12/16 Status: Discontinued pantoprazole 40 mg oral enteric coated tablet 40 mg=1 tab, PO, Daily, # 30 tab, 0 Refill(s) Start Date: 02/11/16 Status: Ordered sodium chloride 0.9% 1000 ml INJ 1,000 mL 1,000 mL, Rate: 50 ml/hr, Infuse over: 20 hr, Route: IV, Dosing Weight 86.364 kg , Total Volume: 1,000, Start date: 02/11/16 9:18:00 EVP OPERATIONS, Duration: 30 day, Stop date: 03/12/16 9:17:00 EVP OPERATIONS Start Date: 02/11/16 Stop Date: 02/12/16 Status: Discontinued Tylenol 325 mg, 1 tab, Route: PO, Drug form: TAB, Q6H, Dosing Weight 86.364, kg, PRN Derrick n Score 1-3, Start date: 02/11/16 20:38:00 EVP OPERATIONS, Duration: 30 day, Stop date: 20:37:00 EVP OPERATIONS Notes: Do not exceed 4 gm/day. (Same as: Tylenol) Start Date: 02/11/16 Stop Date: 02/12/16 Status: Discontinued Results BLOOD BANK RESULTS 1 2 3 Most recent to oldest [Reference Range]: A POS *Unknown* (02/11/16 9:20 AM) A POS *Unknown* (02/02/16 12:25 PM) ABO/Rh Negative (02/11/16 9:20 AM) Negative (02/02/16 12:25 PM) Antibody Scrn Product available (02/11/16 9:20 AM) RBC product ELECTROLYTES 1 2 3 Most recent to oldest [Reference Range]: 141 mEq/L (02/12/16 3:48 PM) 137 mEq/L (02/12/16 3:00 AM) 142 mEq/L (02/11/16 9:20 AM) Sodium Lvl [135-145 mEq/L] 4.6 mEq/L (02/12/16 3:48 PM) 6.1 mEq/L *HI* (02/12/16 3:00 AM) 4.5 mEq/L (02/11/16 9:20 AM) Potassium Lvl [3.5-5.1 mEq/L] 106 mEq/L (02/12/16 3:48 PM) 107 mEq/L (02/12/16 3:00 AM) 107 mEq/L (02/11/16 9:20 AM) Chloride Lvl [95-109 mEq/L] 26 mEq/L (02/12/16 3:48 PM) 19 mEq/L *LOW* (02/12/16 3:00 AM) 27 mEq/L (02/11/16 9:20 AM) CO2 [24-32 mEq/L] 13.6 mEq/L (02/12/16 3:48 PM) 17.1 mEq/L (02/12/16 3:00 AM) 12.5 mEq/L (02/11/16 9:20 AM) AGAP [10.0-20.0 mEq/L] CHEM PANEL 1 2 3 Most recent to oldest [Reference Range]: 2.57 mg/dL *HI* (02/12/16 3:48 PM) 2.28 mg/dL *HI* (02/12/16 3:00 AM) 2.37 mg/dL *HI* (02/11/16 9:20 AM) Creatinine Lvl [0.50-1.40 mg/dL] 23 mL/min/1.73m2 1 *NA* (02/12/16 3:48 PM) 26 mL/min/1.73m2 2 *NA* (02/12/16 3:00 AM) 25 mL/min/1.73m2 3 *NA* (02/11/16 9:20 AM) eGFR 40 mg/dL *HI* (02/12/16 3:48 PM) 34 mg/dL *HI* (02/12/16 3:00 AM) 38 mg/dL *HI* (02/11/16 9:20 AM) BUN [7-22 mg/dL] 109 mg/dL *HI* (02/12/16 3:48 PM) 58 mg/dL *LOW* (02/12/16 3:00 AM) 106 mg/dL *HI* (02/11/16 9:20 AM) Glucose Lvl [70-99 mg/dL] 8.3 mg/dL *LOW* (02/12/16 3:48 PM) 8.1 mg/dL *LOW* (02/12/16 3:00 AM) 9.1 mg/dL (02/11/16 9:20 AM) Calcium Lvl [8.5-10.5 mg/dL] 3.0 mg/dL (02/12/16 3:00 AM) Phosphorus [2.5-4.5 mg/dL] 1.9 mg/dL (02/12/16 3:00 AM) 1.8 mg/dL (02/11/16 9:20 AM) Magnesium Lvl [1.8-2.4 mg/dL] 1Result Comment: The eGFR is calculated using the [...] from the National Kidney Disease Education Program ( NKDEP) which additionally recommends that when the eGFR is used in patients with extremes of body mass index for purposes of drug dosing, the eGFR should be mul tiplied by the estimated BMI. 2Result Comment: The eGFR is calculated using the [...] from the National Kidney Disease Education Program ( NKDEP) which additionally recommends that when the eGFR is used in patients with extremes of body mass index for purposes of drug dosing, the eGFR should be mul tiplied by the estimated BMI. 3Result Comment: The eGFR is calculated using the [...] from the National Kidney Disease Education Program ( NKDEP) which additionally recommends that when the eGFR is used in patients with extremes of body mass index for purposes of drug dosing, the eGFR should be mul tiplied by the estimated BMI. HEMATOLOGY 1 2 3 Most recent to oldest [Reference Range]: 8.8 K/CMM (02/12/16 3:00 AM) 7.1 K/CMM (02/11/16 9:20 AM) WBC [3.7-10.4 K/CMM] 3.55 M/CMM *LOW* (02/12/16 3:00 AM) 3.96 M/CMM *LOW* (02/11/16 9:20 AM) RBC [4.70-6.10 M/CMM] 11.5 g/dL *LOW* (02/12/16 3:00 AM) 12.3 g/dL *LOW* (02/11/16 9:20 AM) Hgb [14.0-18.0 g/dL] 33.4 % *LOW* (02/12/16 3:00 AM) 37.1 % *LOW* (02/11/16 9:20 AM) Hct [42.0-54.0 %] 94.1 fL *HI* (02/12/16 3:00 AM) 93.9 fL (02/11/16 9:20 AM) MCV [80.0-94.0 fL] 32.4 pg *HI* (02/12/16 3:00 AM) 31.2 pg *HI* (02/11/16 9:20 AM) MCH [27.0-31.0 pg] 34.4 g/dL (02/12/16 3:00 AM) 33.2 g/dL (02/11/16 9:20 AM) MCHC [32.0-36.0 g/dL] 13.4 % (02/12/16 3:00 AM) 13.3 % (02/11/16 9:20 AM) RDW [11.5-14.5 %] 177 K/CMM (02/12/16 3:00 AM) 169 K/CMM (02/11/16 9:20 AM) Platelet [133-450 K/CMM] 10.1 fL (02/12/16 3:00 AM) 8.7 fL (02/11/16 9:20 AM) MPV [7.4-10.4 fL] 76.9 % *HI* (02/12/16 3:00 AM) 73.2 % (02/11/16 9:20 AM) Segs [45.0-75.0 %] 12.6 % *LOW* (02/12/16 3:00 AM) 11.6 % *LOW* (02/11/16 9:20 AM) Lymphocytes [20.0-40.0 %] 7.2 % (02/12/16 3:00 AM) 9.4 % (02/11/16 9:20 AM) Monocytes [2.0-12.0 %] 2.8 % (02/12/16 3:00 AM) 5.2 % *HI* (02/11/16 9:20 AM) Eosinophils [0.0-4.0 %] 0.5 % (02/12/16 3:00 AM) 0.6 % (02/11/16 9:20 AM) Basophils [0.0-1.0 %] 6.8 K/CMM (02/12/16 3:00 AM) 5.2 K/CMM (02/11/16 9:20 AM) Segs-Bands # [1.5-8.1 K/CMM] 1.1 K/CMM (02/12/16 3:00 AM) 0.8 K/CMM *LOW* (11/16/16 9:20 AM) Lymphocytes # [1.0-5.5 K/CMM] 0.6 K/CMM (02/12/16 3:00 AM) 0.7 K/CMM (02/11/16 9:20 AM) Monocytes # [0.0-0.8 K/CMM] 0.2 K/CMM (02/12/16 3:00 AM) 0.4 K/CMM (02/11/16 9:20 AM) Eosinophils # [0.0-0.5 K/CMM] 15.2 seconds *HI* (02/11/16 9:20 AM) PT [12.0-14.7 seconds] 1.18 *HI* (02/11/16 9:20 AM) INR [0.85-1.17] 36.1 seconds *HI* (02/11/16 9:20 AM) PTT [22.9-35.8 seconds] Immunizations No data available for this section [...] Smoking Cessation Counseling No Assessment and Plan Extracted from: Title: post op check Author: Josr Dale MD PHD Date: 02/12/16 Pt was seen and examined in AM. No SOB/CP/Palpitations. No AEON. Right groin area with no evidence of hematoma or swelling. Figure of 8 sutures were removed, sterile dressing was applied.
[2018-08-18 18:43] LABS: BASOPHILS % 0.5 % (0.0-1.0); EOSINOPHILS # (AUTO) 0.1 (0.0-0.4); EOSINOPHILS % 1.9 % (0.0-6.0); HEMATOCRIT 44.9 % (38.2-49.6); HEMOGLOBIN 14.3 g/dL (14.0-18.0); LYMPHOCYTES # (AUTO) 0.6 (1.0-3.2); LYMPHOCYTES % 10.9 % (18.0-39.1); MEAN CORPUSCULAR HEMOGLOBIN 30.4 pg (28-32); MEAN CORPUSCULAR HGB CONC 31.8 g/dL (31-35); MEAN CORPUSCULAR VOLUME 95.3 fL (81-99); MONOCYTES # (AUTO) 0.8 (0.2-0.8); MONOCYTES % 13.7 % (4.4-11.3); NEUTROPHILS # (AUTO) 4.1 (2.1-6.9); NEUTROPHILS % 72.6 % (38.7-80.0); PLATELET COUNT 159 x10e3/uL (140-360); RED BLOOD COUNT 4.71 x10e6/uL (4.3-5.7); RED CELL DISTRIBUTION WIDTH 13.9 % (11.7-14.4)
[2018-08-18 18:47] LABS: INR 1.04; PROTHROMBIN TIME 14.1 seconds (11.9-14.5)
[2018-08-18 18:48] LABS: PARTIAL THROMBOPLASTIN TIME 35.6 seconds (23.8-35.5)
[2018-08-18 18:55] LABS: ALBUMIN 3.8 g/dL (3.5-5.0); ALBUMIN/GLOBULIN RATIO 1.2 (0.8-2.0); ANION GAP 17.2 mmol/L (8-16); CALCIUM 9.8 mg/dL (8.4-10.2); CREATININE, SERUM 3.77 mg/dL (0.72-1.25); POTASSIUM 4.2 mmol/L (3.5-5.1)
--- NOTE | 2018-08-18 19:11 | Diagnostic Imaging Report ---
EXAMINATION: CHEST SINGLE (PORTABLE) INDICATION: Shortness of breath ^ERMD ORDER ^[id number] ^1850 ^Y COMPARISON: 07/31/2018 DISCUSSION: Left subclavian approach implantable cardiac device and leads. Lungs are well-inflated and without focal airspace consolidation, pleural effusion, or pneumothorax. Linear opacities in both lung bases likely reflect fibrotic change or subsegmental atelectasis. Normal heart size. Tortuous thoracic aorta with atherosclerotic calcification. Enlargement of the main pulmonary artery suggests underlying pulmonary hypertension. Radiopaque mesh device projects over the heart shadow, shown to lie within the left atrial appendage on comparison CT. No overt pulmonary edema. No acute osseous abnormality. IMPRESSION: No acute cardiopulmonary abnormality. Subsegmental atelectasis or linear fibrotic change in the right middle lobe and left lower lobe. Signed by: Dr. Yariel Gibbs M.D. on 08/18/2018 7:08 PM
[2018-08-18] MEDS ORDERED: DIATRIZOATE MEGL/DIATRIZOA SOD 30 ML BTL PO ONE (19:51)
[2018-08-18 20:31] LABS: BILIRUBIN,URINE NEGATIVE (NEGATIVE); CLARITY,URINE SL CLOUDY (CLEAR); COLOR,URINE YELLOW (YELLOW); KETONES,URINE NEGATIVE (NEGATIVE); LEUKOCYTE ESTERASE ,URINE NEGATIVE (NEGATIVE); NITRITE,URINE NEGATIVE (NEGATIVE); PROTEIN,URINE DIPSTICK 2+ (NEGATIVE); URINE UROBILINOGEN 0.2 mg/dL (0.2 - 1)
[2018-08-18 20:44] LABS: BACTERIA,URINE FEW /HPF; HYALINE CASTS 0-1 (0-1)
--- NOTE | 2018-08-18 22:35 | Diagnostic Imaging Report ---
EXAMINATION: CT of the abdomen and pelvis without contrast. TECHNIQUE: Helical CT images of the abdomen and pelvis were performed from the lung bases to the lesser trochanters. No intravenous contrast was given. Positive Gastrografin administered. Coronal and sagittal reformatted images were obtained.Dose modulation, iterative reconstruction, and/or weight based adjustment of the mA/kV was utilized to reduce the radiation dose to as low as reasonably achievable. COMPARISON: None. CLINICAL HISTORY:Abdominal pain DISCUSSION: ABSENCE OF INTRAVENOUS CONTRAST DECREASES SENSITIVITY FOR DETECTION OF FOCAL LESIONS AND VASCULAR PATHOLOGY. ABDOMEN/PELVIS: LOWER THORAX: Bilateral pleural effusions. HEPATOBILIARY:No focal hepatic lesions. No biliary ductal dilation. Gallbladder not visualized. SPLEEN: No splenomegaly. PANCREAS: No focal masses or ductal dilatation. ADRENALS: No adrenal nodules. KIDNEYS/URETERS: Kidneys are atrophic. Left renal simple cyst. PELVIC ORGANS/BLADDER: The bladder is normal. PERITONEUM/RETROPERITONEUM: Abdominal pelvic ascites LYMPH NODES: No intra-abdominal,retroperitoneal, pelvic or inguinal lymphadenopathy. VESSELS: Vascular calcifications, aortoiliac stent. The aorta measures 6 GI TRACT: No obstruction. Scattered colonic diverticulosis. Bilateral hip arthroplasty. BONES AND SOFT TISSUES: Extensive surgical change lower spine compression. IMPRESSION: No acute CT finding. Bilateral pleural effusions and ascites. Signed by: Dr. Christophe Howe M.D. on 08/18/2018 10:06 PM
[2018-08-18 23:20] VITALS: BP 130/74
== END 2018-08-18 23:29 | disposition home or self-care (01) ==
LOC: ER 16:19
DX: R06.09 Other forms of dyspnea (principal); J90 Pleural effusion, not elsewhere classified; R18.8 Other ascites
CPT/HCPCS: 36415; 71045; 74176; 80053; 81001; 82550; 82553; 83880; 84484; 85025; 85610; 85730; 93005; 99284

== ENCOUNTER → 2018-10-16 | Day surgery (SDC) | payer MEDICARE, BC ==
[2018-10-12 11:45] LABS: BASOPHILS % 0.6 % (0.0-1.0); EOSINOPHILS # (AUTO) 0.2 (0.0-0.4); EOSINOPHILS % 2.8 % (0.0-6.0); HEMATOCRIT 40.8 % (38.2-49.6); HEMOGLOBIN 12.8 g/dL (14.0-18.0); LYMPHOCYTES # (AUTO) 0.6 (1.0-3.2); MEAN CORPUSCULAR HGB CONC 31.4 g/dL (31-35); MEAN CORPUSCULAR VOLUME 92.5 fL (81-99); MONOCYTES # (AUTO) 0.5 (0.2-0.8); MONOCYTES % 9.9 % (4.4-11.3); NEUTROPHILS % 74.3 % (38.7-80.0); PLATELET COUNT 131 x10e3/uL (140-360); RED BLOOD COUNT 4.41 x10e6/uL (4.3-5.7); RED CELL DISTRIBUTION WIDTH 16.4 % (11.7-14.4)
[2018-10-12 12:00] LABS: ALBUMIN 3.5 g/dL (3.5-5.0); ALBUMIN/GLOBULIN RATIO 0.9 (0.8-2.0); ALKALINE PHOSPHATASE 88 IU/L (40-150); ANION GAP 15.8 mmol/L (8-16); BLOOD UREA NITROGEN 23 mg/dL (7-26); BUN/CREATININE RATIO 8 (6-25); CALCIUM 9.9 mg/dL (8.4-10.2); CARBON DIOXIDE 31 mmol/L (22-29); CHLORIDE 95 mmol/L (98-107); CREATININE, SERUM 2.77 mg/dL (0.72-1.25); EST GLOMERULAR FILTRATION RATE 22 ML/MIN (60-); GLUCOSE 78 mg/dL (74-118); POTASSIUM 4.8 mmol/L (3.5-5.1); SODIUM 137 mmol/L (136-145)
[2018-10-12 12:27] LABS: ALANINE AMINOTRANSFERASE < 6 IU/L (0-55)
[~2018-10-16] VITALS: Ht 190.5 cm; Wt 83.9 kg
[2018-10-16] VITALS (13 sets, daily range): BP systolic 110–137; BP diastolic 62–77
[~2018-10-16] MED LIST changes: +FENTANYL CITRATE/PF 100MCG/2 ML INJ ONE; +HEPARIN SOD (PORCINE) 1000 UNIT/ML 30ML ONE; +HEPARIN SOD/SOD CHLORIDE 2,000 ML ONE; +IOPAMIDOL 370 MG/ML 200 ML INFUS..BTL INJ ONE; +LIDOCAINE HCL 2% LOCAL 20 ML VIAL ONE; +MIDAZOLAM HCL 2 MG/2 ML VIAL ONE; +NITROGLYCERIN/D5W 200 MCG/ML 250 ML ONE; +SODIUM CHLORIDE 0.9% 1000ML 1,000 ML ONE; +VERAPAMIL HCL 2.5 MG/ML 2 ML VIAL ONE
--- OUTSIDE RECORDS SUMMARY | 2018-10-16 06:32 | XMS REPORT | Continuity of Care Document ---
Author Author [place] Address Unknown Phone Unavailable Care Team Providers Care Probate Paralegal Name Role Phone RECESS. 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,I10 Active 02/25/2016 [facility] AFIB Active 01/01/2016 [facility] PAROXYSMAL ATRIAL FIBRILATION Active 01/01/2016 [facility] Cyst of kidney, acquired 07/29/2018 [facility] Other specified disorders of kidney and ureter 07/29/2018 [facility] Abdominal aortic ectasia 07/29/2018 [facility] [place] [facility] Atrial fibrillation Resolved Problem 07/29/2018 [facility], [facility] [place] Kidney carcinoma Resolved Problem 07/29/2018 [facility], [facility] [place] [facility] CHF (Confirmed) Resolved Problem 07/29/2018 [facility], [facility] [place] [facility] Hyperlipidemia Resolved Problem 07/29/2018 [facility], [facility] [place] HTN (Confirmed) Resolved Problem 07/29/2018 [facility], [facility] [place] [facility] ASHLEY (Confirmed) Resolved Problem 07/29/2018 [facility], [facility] [place] [facility] OTHER SPECIFIED CONGENITAL DEFORMITIES Active [facility] CHRONIC ATRIAL FIBRILLATION Active [facility] CHRONIC SYSTOLIC (CONGESTIVE) HEART FAIL Active [facility] ESSENTIAL (PRIMARY) HYPERTENSION Active [facility] Medications Medication Details Route Status Patient Instructions Ordering Provider Order Date Source Aspirin 81 MG Enteric Coated Tablet 81 mg=1 tab, PO, Daily, 0 Refill(s) Active 02/12/2016 [facility] apixaban 2.5 mg oral tablet 2.5 mg=1 tab, PO, Q12H, 0 Refill(s) Active 02/12/2016 [facility] metoprolol 50 mg oral tablet, extended release 50 mg=1 tab, PO, Daily, 0 Refill(s) Active 02/12/2016 [facility] atorvastatin 20 mg oral tablet 20 mg=1 tab, PO, Bedtime, 0 Refill(s) Active 02/12/2016 [facility] allopurinol 100 mg oral tablet 100 mg=1 tab, PO, Daily, 0 Refill(s) Active 02/12/2016 [facility] Aspirin 81 mg, 1 tab, Route: PO, Drug form: ECTAB, Daily, Dosing Weight 86.364, kg, Start date: 02/12/16 9:00:00 NAVIGATION TEACHER, Duration: 30 day, Stop date: 03/12/16 9:00:00 CSTNotes: Do not crush or chew. (Same As: Ecotrin) Inactive 02/12/2016 [facility] Allopurinol 100 mg, 1 tab, Route: PO, Drug form: TAB, Daily, Dosing Weight 86.364, kg, Start date: 02/12/16 9:00:00 NAVIGATION TEACHER, Duration: 30 day, Stop date: 03/12/16 9:00:00 CSTNotes: (Same as: Zyloprim) Inactive 02/12/2016 [facility] Benzocaine 15 MG / Menthol 3.6 MG Lozenge [Cepacol Sore Throat Pain Relief 15/3.6] 1 lozenge, Route: MUCOUS MEM, Drug Form: ELIZA, Dosing Weight 86.364, kg, Q4H, PRN Sore Throat, Start date: 02/11/16 22:31:00 NAVIGATION TEACHER, Duration: 30 day, Stop date: 03/12/16 22:30:00 CSTNotes: Cepacol lozenges Dispense 1 box=16 lozenges (Same As: Cepacol Lozenges) No Longer Active 02/12/2016 [facility] cefdinir 300 MG Oral Capsule 300 mg, 1 cap, Route: PO, Drug form: CAP, Q12H, Dosing Weight 86.364, kg, Start date: 02/11/16 21:00:00 NAVIGATION TEACHER, Duration: 30 day, Stop date: 03/12/16 9:00:00 CSTNotes: (Same As: Omnicef) No Longer Active 02/12/2016 [facility] atorvastatin 20 mg, 1 tab, Route: PO, Drug form: TAB, Bedtime, Dosing Weight 86.364, kg, Start date: 02/11/16 21:00:00 NAVIGATION TEACHER, Duration: 30 day, Stop date: 03/11/16 21:00:00 CSTNotes: (Same As: Lipitor) No Longer Active 02/12/2016 [facility] Eliquis 2.5 mg, 1 tab, Route: PO, Drug form: TAB, Q12H, Dosing Weight 86.364, kg, Start date: 02/11/16 21:00:00 NAVIGATION TEACHER, Duration: 30 day, Stop date: 03/12/16 9:00:00 CSTNotes: Same as: Eliquis No Longer Active 02/12/2016 [facility] Tylenol 325 mg, 1 tab, Route: PO, Drug form: TAB, Q6H, Dosing Weight 86.364, kg, PRN Pain Score 1-3, Start date: 02/11/16 20:38:00 NAVIGATION TEACHER, Duration: 30 day, Stop date: 03/12/16 20:37:00 CSTNotes: Do not exceed 4 gm/day. (Same as: Tylenol) No Longer Active 02/12/2016 [facility] metoprolol extended release 50 mg, 1 tab, Route: PO, Drug form: ERTAB, Daily, Start date: 02/11/16 18:00:00 NAVIGATION TEACHER, Duration: 30 day, Stop date: 03/12/16 9:00:00 CSTNotes: (Same as: Toprol XL) May split tab, but do not crush. No Longer Active 02/12/2016 [facility] pantoprazole 40 mg, 1 tab, Route: PO, Drug form: ECTAB, QPM, Dosing Weight 86.364, kg, Start date: 02/11/16 17:00:00 NAVIGATION TEACHER, Duration: 30 day, Stop date: 03/11/16 17:00:00 CSTNotes: Tablet should not be chewed or cr ushed. (Same as: Protonix) No Longer Active 02/11/2016 [facility] cefdinir 300 MG Oral Capsule 300 mg=1 cap, PO, Q12H, # 14 cap, 0 Refill(s) Active 02/11/2016 [facility] atorvastatin 20 mg oral tablet 20 mg=1 tab, PO, Bedtime, # 30 tab, 0 Refill(s) Active 02/11/2016 [facility] allopurinol 100 mg oral tablet 100 mg=1 tab, PO, Daily, # 60 tab, 0 Refill(s) Active 02/11/2016 [facility] pantoprazole 40 mg oral enteric coated tablet 40 mg=1 tab, PO, Daily, # 30 tab, 0 Refill(s) Active 02/11/2016 [facility] metoprolol 50 mg oral tablet, extended release 50 mg=1 tab, PO, Daily, # 30 tab, 0 Refill(s) Active 02/11/2016 [facility] sodium chloride 0.9% 1000 ml INJ 1,000 mL 1,000 mL, Rate: 50 ml/hr, Infuse over: 20 hr, Route: IV, Dosing Weight 86.364 kg, Total Volume: 1,000, Start date: 02/11/16 9:18:00 NAVIGATION TEACHER, Duration: 30 day, Stop date: 03/12/16 9:17:00 NAVIGATION TEACHER No Longer Active 02/11/2016 [facility] Allergies, Adverse Reactions, Alerts Substance Category Reaction Severity Reaction type Status Date Reported Comments Source No Known Medication Allergies Assertion Drug allergy [facility] Immunizations No Data Provided for This Section Results Order Name Results Value Reference Range Date Interpretation Comments Source CHEM PANEL eGFR 23 02/12/2016 Result Comment: The eGFR is calculated [...] should be multiplied by the estimated BMI. [facility] CHEM PANEL Glucose Lvl 109 70 - 99 02/12/2016 [facility] CHEM PANEL Creatinine Lvl 2.57 0.50 - 1.40 02/12/2016 [facility] CHEM PANEL BUN 40 7 - 22 02/12/2016 [facility] CHEM PANEL Sodium Lvl 141 135 - 145 02/12/2016 [facility] CHEM PANEL Chloride Lvl 106 95 - 109 02/12/2016 [facility] CHEM PANEL Potassium Lvl 4.6 3.5 - 5.1 02/12/2016 [facility] CHEM PANEL Calcium Lvl 8.3 8.5 - 10.5 02/12/2016 [facility] CHEM PANEL CO2 26 24 - 32 02/12/2016 [facility] CHEM PANEL AGAP 13.6 10.0 - 20.0 02/12/2016 [facility] CHEM PANEL Phosphorus 3.0 2.5 - 4.5 02/12/2016 [facility] CHEM PANEL Magnesium Lvl 1.9 1.8 - 2.4 02/12/2016 [facility] ELECTROLYTES CO2 19 24 - 32 02/12/2016 [facility] ELECTROLYTES Chloride Lvl 107 95 - 109 02/12/2016 [facility] ELECTROLYTES Potassium Lvl 6.1 3.5 - 5.1 02/12/2016 [facility] ELECTROLYTES Sodium Lvl 137 135 - 145 02/12/2016 [facility] ELECTROLYTES Calcium Lvl 8.1 8.5 - 10.5 02/12/2016 [facility] ELECTROLYTES AGAP 17.1 10.0 - 20.0 02/12/2016 [facility] ELECTROLYTES Creatinine Lvl 2.28 0.50 - 1.40 02/12/2016 [facility] ELECTROLYTES BUN 34 7 - 22 02/12/2016 [facility] ELECTROLYTES Glucose Lvl 58 70 - 99 02/12/2016 [facility] ELECTROLYTES eGFR 26 02/12/2016 Result Comment: The eGFR is calculated [...] should be multiplied by the estimated BMI. [facility] HEMATOLOGY Eosinophils 2.8 0.0 - 4.0 02/12/2016 [facility] HEMATOLOGY Monocytes 7.2 2.0 - 12.0 02/12/2016 [facility] HEMATOLOGY Basophils 0.5 0.0 - 1.0 02/12/2016 [facility] HEMATOLOGY Segs-Bands # 6.8 1.5 - 8.1 02/12/2016 [facility] HEMATOLOGY Lymphocytes # 1.1 1.0 - 5.5 02/12/2016 [facility] HEMATOLOGY Eosinophils # 0.2 0.0 - 0.5 02/12/2016 [facility] HEMATOLOGY Monocytes # 0.6 0.0 - 0.8 02/12/2016 [facility] HEMATOLOGY Lymphocytes 12.6 20.0 - 40.0 02/12/2016 [facility] HEMATOLOGY Segs 76.9 45.0 - 75.0 02/12/2016 [facility] HEMATOLOGY MCH 32.4 27.0 - 31.0 02/12/2016 [facility] HEMATOLOGY MCHC 34.4 32.0 - 36.0 02/12/2016 [facility] HEMATOLOGY RDW 13.4 11.5 - 14.5 02/12/2016 [facility] HEMATOLOGY MPV 10.1 7.4 - 10.4 02/12/2016 [facility] HEMATOLOGY Platelet 177 133 - 450 02/12/2016 [facility] HEMATOLOGY RBC 3.55 4.70 - 6.10 02/12/2016 [facility] HEMATOLOGY WBC 8.8 3.7 - 10.4 02/12/2016 [facility] HEMATOLOGY Hgb 11.5 14.0 - 18.0 02/12/2016 [facility] HEMATOLOGY MCV 94.1 80.0 - 94.0 02/12/2016 [facility] HEMATOLOGY Hct 33.4 42.0 - 54.0 02/12/2016 [facility] BLOOD BANK RESULTS RBC product Product available (02/11/16 9:20 AM) 02/11/2016 [facility] BLOOD BANK RESULTS Antibody Scrn Negative (02/11/16 9:20 AM) 02/11/2016 [facility] BLOOD BANK RESULTS ABO/Rh A POS 02/11/2016 [facility] CHEM PANEL Magnesium Lvl 1.8 1.8 - 2.4 02/11/2016 [facility] ELECTROLYTES AGAP 12.5 10.0 - 20.0 02/11/2016 [facility] ELECTROLYTES eGFR 25 02/11/2016 Result Comment: The eGFR is calculated [...] should be multiplied by the estimated BMI. [facility] ELECTROLYTES Sodium Lvl 142 135 - 145 02/11/2016 [facility] ELECTROLYTES BUN 38 7 - 22 02/11/2016 [facility] ELECTROLYTES Creatinine Lvl 2.37 0.50 - 1.40 02/11/2016 [facility] ELECTROLYTES Calcium Lvl 9.1 8.5 - 10.5 02/11/2016 [facility] ELECTROLYTES Chloride Lvl 107 95 - 109 02/11/2016 [facility] ELECTROLYTES CO2 27 24 - 32 02/11/2016 [facility] ELECTROLYTES Potassium Lvl 4.5 3.5 - 5.1 02/11/2016 [facility] ELECTROLYTES Glucose Lvl 106 70 - 99 02/11/2016 [facility] HEMATOLOGY Eosinophils # 0.4 0.0 - 0.5 02/11/2016 [facility] HEMATOLOGY Monocytes # 0.7 0.0 - 0.8 02/11/2016 [facility] HEMATOLOGY Lymphocytes 11.6 20.0 - 40.0 02/11/2016 [facility] HEMATOLOGY Eosinophils 5.2 0.0 - 4.0 02/11/2016 [facility] HEMATOLOGY Monocytes 9.4 2.0 - 12.0 02/11/2016 [facility] HEMATOLOGY Basophils 0.6 0.0 - 1.0 02/11/2016 [facility] HEMATOLOGY Segs-Bands # 5.2 1.5 - 8.1 02/11/2016 [facility] HEMATOLOGY Lymphocytes # 0.8 1.0 - 5.5 02/11/2016 [facility] HEMATOLOGY Segs 73.2 45.0 - 75.0 02/11/2016 [facility] HEMATOLOGY Hct 37.1 42.0 - 54.0 02/11/2016 [facility] HEMATOLOGY MCV 93.9 80.0 - 94.0 02/11/2016 [facility] HEMATOLOGY MPV 8.7 7.4 - 10.4 02/11/2016 [facility] HEMATOLOGY Platelet 169 133 - 450 02/11/2016 [facility] HEMATOLOGY MCHC 33.2 32.0 - 36.0 02/11/2016 [facility] HEMATOLOGY MCH 31.2 27.0 - 31.0 02/11/2016 [facility] HEMATOLOGY RDW 13.3 11.5 - 14.5 02/11/2016 [facility] HEMATOLOGY WBC 7.1 3.7 - 10.4 02/11/2016 [facility] HEMATOLOGY Hgb 12.3 14.0 - 18.0 02/11/2016 [facility] HEMATOLOGY RBC 3.96 4.70 - 6.10 02/11/2016 [facility] HEMATOLOGY PT 15.2 12.0 - 14.7 02/11/2016 [facility] HEMATOLOGY INR 1.18 0.85 - 1.17 02/11/2016 [facility] HEMATOLOGY PTT 36.1 22.9 - 35.8 02/11/2016 [facility] BLOOD BANK RESULTS ABO/Rh A POS 02/02/2016 [facility] BLOOD BANK RESULTS Antibody Scrn Negative (02/02/16 12:25 PM) 02/02/2016 [facility] Pathology Reports No Data Provided for This Section Diagnostic Reports Report Value Date Source Bladder US Exam: Bladder ultrasound Reason for [...] cc. Impression: 1. Unremarkable bladder ultrasound. 04/26/2018 DAVID Contreras Retroperitoneal Complete US Exam: RETROPERITONEAL ULTRASOUND. Reason [...] medical renal disease. Bilateral renal cysts. 04/26/2018 DAVID Contreras Retroperitoneal Complete US Exam: Bilateral renal ultrasound [...] as well as vascular surgery consultation. 01/09/2018 LAM Contreras Bladder US Exam: Bilateral renal ultrasound and [...] as well as vascular surgery consultation. 01/09/2018 LAM Contreras Chest 2 views DX EXAM: XR CHEST 2 VIEWS DATE: 02/12/2016 3:00 AM NAVIGATION TEACHER INDICATION: Line Placement COMPARISON: None FINDINGS: Left [...] descending thoracic aorta. 3. Basilar atelectasis. 02/12/2016 [facility] Consultation Notes No Data Provided for This Section Discharge Summaries No Data Provided for This Section History and Physicals No Data Provided for This Section Vital Signs Vital Sign Value Date Comments Source Height 182.88 cm 03/30/2016 [facility] BMI Calculated 25.82 03/30/2016 [facility] Weight 86.364 03/30/2016 [facility] Systolic (mm Hg) 156 02/12/2016 [facility] Diastolic (mm Hg) 76 02/12/2016 [facility] Systolic (mm Hg) 166 02/12/2016 [facility] Diastolic (mm Hg) 73 02/12/2016 [facility] Systolic (mm Hg) 151 02/12/2016 [facility] Diastolic (mm Hg) 66 02/12/2016 [facility] Respitory Rate 18 02/12/2016 [facility] Respitory Rate 20 02/12/2016 [facility] Respitory Rate 13 02/12/2016 [facility] Weight 86.364 02/11/2016 [facility] BMI Calculated 25.82 02/11/2016 [facility] Height 182.88 cm 02/11/2016 [facility] Encounters Location Location Details Encounter Type Encounter Number Reason For Visit Attending Provider ADM Date DC Date Status Source [facility] Inpatient [id number] Josiane Medina 02/11/2016 02/13/2016 [facility] Outpatient [id number] Josiane Medina 03/30/2016 03/31/2016 [facility] [id number] Jacoby Rodríguez 01/09/2018 01/10/2018 [facility] [place] [facility] [id number] Darci Galindo 04/26/2018 04/27/2018 [facility] Procedures Procedure Code Date Perfomer Comments Source Cataract extraction [id number] [facility] Pacemaker care management [id number] [facility] Cataract extraction [id number] [facility] Pacemaker care management [id number] [facility] Assessment and Plan Assessment and Plan Date Source Extracted from:Title: post op check Author: Josr Dale MD PHD Date: 02/12/16 Pt was seen and examined in AM. No SOB/CP/Palpitations. No AEON. Right groin area with no evidence of hematoma or swelling. Figure of 8 sutures were removed, sterile dressing was applied. 02/13/2016 [facility] Plan of Care No Data Provided for This Section Social History Social History Date Source Social History TypeResponse Alcohol Current, Type Beer, Wine. Frequency: Daily. [...] Smoking Cessation Counseling No entered on: 02/11/16 02/12/2016 [facility] Social History TypeResponse Alcohol Current, Type Beer, Wine. Frequency: Daily. [...] Days Yes; Reg Smoking Cessation Counseling No 02/12/2016 [facility] Family History No Data Provided for This Section Advance Directives No Data Provided for This Section Functional Status No Data Provided for This Section
--- OUTSIDE RECORDS SUMMARY | 2018-10-16 06:32 | XMS REPORT | Clinical Summary ---
Author Author [facility] Organization [facility] Address Unknown Phone Unavailable Care Team Providers Care Surgical Clinical Reviewer Name Role Phone Marek Perez Unavailable Allergies [...] Phone 06/15/2018 Hospital Pre-Admission Testing Encounter after 10/15/2017 Social History Date Tobacco Use Types Packs/Day [...] ms QTC Calculatio n(Bazett) 486 ms R [place] 264 degrees T [place] 89 degrees Ventricul ar-paced rhythm Biventricu lar pacemaker detected Abnormal ECG When compared with ECG of 2 08:09, Electronic ventricula r pacemaker has replaced Sinus rhythm ECG 12-LEAD Routine 06/22/2018 1:37 PM CDT after 10/15/2017 Results * TRANSFUSION SERVICE REPORT - SCAN (06/23/2018 6:04 PM CDT) Narrative Performed At * Potassium-Stat Lab (06/23/2018 6:18 AM CDT) Potassium 5.0 3.6 - 5.5 meq/L [facility] Specimen Blood, Arterial Performing Organization Address City/[facility]/[place] [address] [phone] [place] [address] * Glucose-Stat Lab (06/23/2018 6:18 AM CDT) Glucose 83 70 - 110 mg/dL [facility] Specimen Blood, Arterial Performing Organization Address [facility] Phone Number [address] * HGB/HCT (H&H)-Stat Lab (06/23/2018 6:18 AM CDT) Hemoglobin 13.9 13.0 - 16.8 g/dL [facility] Hematocrit 41.0 40.0 - 50.0 % [facility] Specimen Blood, Arterial Performing Organization Address [facility] Phone Number [address] * POC-Glucose meter (06/23/2018 5:39 AM CDT) POC-Glucose Meter 95Comment: TESTED AT [facility] 70 - 110 mg/dL [address] Specimen Blood Performing Organization Address [facility] [place] [address] [phone] [place] [address] * Type and screen, automated (06/22/2018 2:32 PM CDT) ABO/RH AUTOMATED (BEAKER) A POSITIVE [facility] Ab Scrn NEGATIVE [facility] Specimen Blood Performing Organization Address City/[facility]/[place] Phone Number [address] * Hemoglobin and hematocrit (06/22/2018 2:32 PM CDT) Hemoglobin 12.9 (L) 13.7 - 17.5 GM/DL [facility] Hematocrit 40.1 40.1 - 51.0 % [facility] Specimen Blood Performing Organization Address [facility]/[employer] Phone Number [address] * Potassium (06/22/2018 2:32 PM CDT) Potassium 5.7 (H) 3.5 - 5.1 meq/L [facility] Specimen Blood Narrative Performed At If diabetic [facility] If Potassium greater than 5.5 mEq/L, call capacitor pack press operator [facility] Performing Organization Address [facility] Phone Number [address] * Glucose (06/22/2018 2:32 PM CDT) Glucose 88 70 - 105 mg/dL [facility] Specimen Blood Narrative Performed At If diabetic [facility] If Potassium greater than 5.5 mEq/L, call capacitor pack press operator [facility] Performing Organization Address City/[facility] Phone Number [address] [address] [phone] [address] * ECG 12 lead (06/22/2018 1:37 PM CDT) Specimen Narrative Performed At Ventricular Rate 70 BPM GE MUSE Atrial Rate 72 BPM QRS Duration 150 ms Q-T Interval 450 ms QTC Calculation(Bazett) 486 ms R [place] 264 degrees T [place] 89 degrees Ventricular-paced rhythm Biventricular pacemaker detected [...] 450 ms QTC Calculation(Bazett) 486 ms R [place] 264 degrees T [place] 89 degrees Ventricular-paced rhythm Biventricular pacemaker detected Abnormal ECG When compared with ECG of 13-MAR-2012 08:09, Electronic ventricular pacemaker has replaced Sinus rhythm Confirmed by MD LEYVA JOSEPH P ([id number]) on 06/23/2018 6:22:38 AM Performing Organization Address City/State/Zipcode Phone Number GE MUSE after 10/15/2017 Insurance Payer Benefit Subscriber ID Type Phone Address Plan / Group MEDICARE MEDICARE A xxxxxxxxxxx Medicare B BLUE CROSS/BLUE SHIELD BCBS FED xxxxxxxxx PPO [phone] [address] [place] [address] Advance Directives For more information, please contact: [facility] [address] [place] [address] Date Inactivated Comments Code Status Date Activated 06/23/2018 5:40 PM Full Code 06/23/2018 5:59 AM This code status was determined by: Patient
--- NOTE | 2018-10-16 09:10 | Operative Report ---
DATE OF PROCEDURE: 10/16/2018 SURGEON: Juan Antonio Ospina MD INDICATION: Coronary artery disease, congestive heart failure. PROCEDURES PERFORMED: Left heart catheterization, selective coronary angiography. COMPLICATIONS: None. RECOMMENDATIONS: Considerations for coronary artery bypass surgery versus medical therapy. DESCRIPTION OF PROCEDURE: Access was obtained in the right femoral artery. A 6-German sheath was placed. Diagnostic coronary angiogram demonstrates heavily calcified left main with 50% distal stenosis. Ostial circumflex heavily calcified 90% stenosis. Mid left anterior descending artery calcified 90% stenosis. Remaining vessel had diffuse 50% to 70% stenosis. Right coronary artery is occluded in its proximal portion with collaterals from the left coronary system supplying the right posterior descending artery. LV end-diastolic pressure of 10. No gradient across the aortic valve on pullback. Right groin sheath was removed under manual pressure. The patient was discharged home same day. Juan Antonio Ospina MD KSB/MODL /[id number]
--- NOTE | 2018-10-16 13:20 | NUR ---
DISCHARGE NOTE-- VSS and denies pain or nausea. No bleeding or hematoma noted after sitting at 45 degree angle for 15 minutes. Monitors removed from patient and patient up to bathroom with assistance from rain Marques. IV removed using aseptic technique and no bleeding noted from IV site. Sterile 2x2 and Coban used to discontinue IV. Daughter, Debbie, to pull car around to front entrance. Patient placed in wheelchair and transported to personal vehicle in [facility].
== END | disposition home or self-care (01) ==
LOC: CATH LAB 06:15
PROVIDERS: ATTEND Internal Medicine Interventional Cardiology
DX: I25.118 Atherosclerotic heart disease of native coronary artery with other forms of angina pectoris (principal); Z01.812 Encounter for preprocedural laboratory examination; Z88.8 Allergy status to other drugs, medicaments and biological substances; E78.5 Hyperlipidemia, unspecified; G47.33 Obstructive sleep apnea (adult) (pediatric); I48.91 Unspecified atrial fibrillation; I11.0 Hypertensive heart disease with heart failure; I50.22 Chronic systolic (congestive) heart failure; I65.21 Occlusion and stenosis of right carotid artery
CPT/HCPCS: 36415; 80053; 85025; 93458; C1769; J1644; J2001; J2250; J3010; J7030; Q9967

== ENCOUNTER 2018-11-15 12:31 | Inpatient (IN) | payer MEDICARE, BC ==
[~2018-11-15] VITALS: Ht 190.5 cm; Wt 83.2 kg
[~2018-11-15 12:31] MED LIST changes: -FENTANYL CITRATE/PF 100MCG/2 ML INJ ONE; -HEPARIN SOD (PORCINE) 1000 UNIT/ML 30ML ONE; -HEPARIN SOD/SOD CHLORIDE 2,000 ML ONE; -IOPAMIDOL 370 MG/ML 200 ML INFUS..BTL INJ ONE; -LIDOCAINE HCL 2% LOCAL 20 ML VIAL ONE; -MIDAZOLAM HCL 2 MG/2 ML VIAL ONE; -NITROGLYCERIN/D5W 200 MCG/ML 250 ML ONE; -SODIUM CHLORIDE 0.9% 1000ML 1,000 ML ONE; -VERAPAMIL HCL 2.5 MG/ML 2 ML VIAL ONE
[2018-11-15] MEDS ORDERED: CEFEPIME 1GM/NS 0.9% 50 ML 50 ML IV STA (12:35)
[2018-11-15] MEDS ORDERED: SODIUM CHLORIDE 0.9% 1000ML 1,000 ML IV STA (12:35)
--- OUTSIDE RECORDS SUMMARY | 2018-11-15 12:36 | XMS REPORT | Clinical Summary ---
Author [facility] Organization [facility] Address Unknown Phone Unavailable Care Team Providers Care Packing Machine Feeder Name Role Phone Marek Perez Unavailable Allergies [...] Phone 06/15/2018 Hospital Pre-Admission Testing Encounter after 11/14/2017 Social History Date Tobacco Use Types Packs/Day [...] ms QTC Calculatio n(Bazett) 486 ms R [place] 264 degrees T [place] 89 degrees Ventricul ar-paced rhythm Biventricu lar pacemaker detected Abnormal ECG When compared with ECG of 2 08:09, Electronic ventricula r pacemaker has replaced Sinus rhythm ECG 12-LEAD Routine 06/22/2018 1:37 PM CDT after 11/14/2017 Results * TRANSFUSION SERVICE REPORT - SCAN (06/23/2018 6:04 PM CDT) Narrative Performed At * Potassium-Stat Lab (06/23/2018 6:18 AM CDT) Potassium 5.0 3.6 - 5.5 meq/L [facility] Specimen Blood, Arterial Performing Organization Address City/[facility] [place] [address] [phone] [place] [address] * Glucose-Stat Lab (06/23/2018 6:18 AM CDT) Glucose 83 70 - 110 mg/dL [facility] Specimen Blood, Arterial Performing Organization Address [facility] Phone Number [address] * HGB/HCT (H&H)-Stat Lab (06/23/2018 6:18 AM CDT) Hemoglobin 13.9 13.0 - 16.8 g/dL [facility] Hematocrit 41.0 40.0 - 50.0 % [facility] Specimen Blood, Arterial Performing Organization Address [facility] Phone Number [address] * POC-Glucose meter (06/23/2018 5:39 AM CDT) POC-Glucose Meter 95Comment: TESTED AT [facility] 70 - 110 mg/dL [address] Specimen Blood Performing Organization Address [facility] [place] [address] [phone] [place] [address] * Type and screen, automated (06/22/2018 2:32 PM CDT) ABO/RH AUTOMATED (BEAKER) A POSITIVE [facility] Ab Scrn NEGATIVE [facility] Specimen Blood Performing Organization Address City[facility] Phone Number [address] * Hemoglobin and hematocrit (06/22/2018 2:32 PM CDT) Hemoglobin 12.9 (L) 13.7 - 17.5 GM/DL [facility] Hematocrit 40.1 40.1 - 51.0 % [facility] Specimen Blood Performing Organization Address [facility] Phone Number [address] * Potassium (06/22/2018 2:32 PM CDT) Potassium 5.7 (H) 3.5 - 5.1 meq/L [facility] Specimen Blood Narrative Performed At If diabetic [facility] If Potassium greater than 5.5 mEq/L, call sports centre manager [facility] Performing Organization Address [facility] Phone Number [address] * Glucose (06/22/2018 2:32 PM CDT) Glucose 88 70 - 105 mg/dL [facility] Specimen Blood Narrative Performed At If diabetic [facility] If Potassium greater than 5.5 mEq/L, call sports centre manager [facility] Performing Organization Address City/[facility] Phone Number [address] [address] [phone] * ECG 12 lead (06/22/2018 1:37 PM CDT) Specimen Narrative Performed At Ventricular Rate 70 BPM [facility] Atrial Rate 72 BPM QRS Duration 150 ms Q-T Interval 450 ms QTC Calculation(Bazett) 486 ms R [place] 264 degrees T [place] 89 degrees Ventricular-paced rhythm Biventricular pacemaker detected [...] 450 ms QTC Calculation(Bazett) 486 ms R [place] 264 degrees T [place] 89 degrees Ventricular-paced rhythm Biventricular pacemaker detected Abnormal ECG When compared with ECG of 13-MAR-2012 08:09, Electronic ventricular pacemaker has replaced Sinus rhythm Confirmed by MD LEYVA JOSEPH P ([id number]) on 06/23/2018 6:22:38 AM Performing Organization Address City/State/Zipcode Phone Number GE MUSE after 11/14/2017 Insurance Payer Benefit Subscriber ID Type Phone Address Plan / Group MEDICARE MEDICARE A xxxxxxxxxxx Medicare B BLUE CROSS/BLUE SHIELD BCBS FED xxxxxxxxx PPO [phone] [address] [place] [address] Advance Directives For more information, please contact: [facility] [address] [place] [address] Date Inactivated Comments Code Status Date Activated 06/23/2018 5:40 PM Full Code 06/23/2018 5:59 AM This code status was determined by: Patient
--- OUTSIDE RECORDS SUMMARY | 2018-11-15 12:37 | XMS REPORT | Summary of Care ---
Author Author [facility] Organization [facility] Address Unknown Phone Unavailable Encounter HQ Richar_steve(FIN) [id number] Date(s): 04/26/18 - 04/26/18 [facility] [place] [address] [place], [place] [address] [phone] Encounter Diagnosis Chronic kidney disease, stage 4 (severe) (Final) - 04/29/18 Cyst of kidney, acquired (Final) - Discharge Disposition: Home or Self [...]
--- OUTSIDE RECORDS SUMMARY | 2018-11-15 12:37 | XMS REPORT | Continuity of Care Document ---
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 Name Role Phone [employer] Information [employer] Unavailable Unavailable Problems Problem Status Onset Date Classification Date Reported Comments Source Chronic kidney disease, stage 4 (severe) 04/29/2018 11/14/2018 [facility] [place] Chronic kidney disease, stage 4 01/13/2018 07/29/2018 [facility] [place] I48.2,I50.22,I10 Active 02/25/2016 [facility] AFIB Active 01/01/2016 [facility] PAROXYSMAL ATRIAL FIBRILATION Active 01/01/2016 [facility] Cellulitis Active 09/19/2015 Problem 08/19/[address] 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 Cyst of kidney, acquired 11/14/2018 [facility] [place] Other specified disorders of kidney and ureter 07/29/2018 [facility] [place] Abdominal aortic ectasia 07/29/2018 [facility] [place] Atrial fibrillation Resolved Problem 07/29/2018 [facility] [place] Kidney carcinoma Resolved Problem 07/29/2018 [facility] [place] CHF (Confirmed) Resolved Problem 07/29/2018 [facility] [place] Hyperlipidemia Resolved Problem 07/29/2018 [facility] [place] HTN (Confirmed) Resolved Problem 07/29/2018 [facility] [place] ASHLEY (Confirmed) Resolved Problem 07/29/2018 [facility] [place] Atrial fibrillation (disorder) Resolved Problem 11/14/2018 [facility] [place] 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 11/14/2018 [facility] [place] Congestive heart failure (disorder) Resolved Problem 11/14/2018 [facility] [place] Hyperlipidemia (disorder) Resolved Problem 11/14/2018 [facility] [place] Hypertensive disorder, systemic arterial (disorder) Resolved Problem 11/14/2018 [facility] [place] Obstructive sleep apnea syndrome (disorder) Resolved Problem 11/14/2018 [facility] [place] OTHER SPECIFIED CONGENITAL DEFORMITIES Active [facility] CHRONIC ATRIAL FIBRILLATION Active [facility] CHRONIC SYSTOLIC (CONGESTIVE) HEART FAIL Active [facility] ESSENTIAL (PRIMARY) HYPERTENSION Active [facility] Medications Medication Details Route Status Patient Instructions Ordering Provider Order Date Source Enoxaparin Sodium (Lovenox) 80 Mg/0.8 Ml Inj, 80 Mg Sub-Q Twice A Day Active 02/16/[address] [facility] Aspirin 81 MG Enteric Coated Tablet 81 mg=1 tab, PO, Daily, 0 Refill(s) Active 02/12/2016 [facility] apixaban 2.5 mg oral tablet 2.5 mg=1 tab, PO, Q12H, 0 Refill(s) Active 02/12/2016 [facility] metoprolol 50 mg oral tablet, extended release 50 mg=1 tab, PO, Daily, 0 Refill(s) Active 02/12/2016 [facility] atorvastatin 20 mg oral tablet 20 mg=1 tab, PO, Bedtime, 0 Refill(s) Active 02/12/2016 [facility] allopurinol 100 mg oral tablet 100 mg=1 tab, PO, Daily, 0 Refill(s) Active 02/12/2016 [facility] Aspirin 81 mg, 1 tab, Route: PO, Drug form: ECTAB, Daily, Dosing Weight 86.364, kg, Start date: 02/12/16 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 (Same As: Ecotrin) Inactive 02/12/2016 [facility] Allopurinol 100 mg, 1 tab, Route: PO, Drug form: TAB, Daily, Dosing Weight 86.364, kg, Start date: 02/12/16 9:00:00 LIFTER DRIVER, Duration: 30 day, Stop date: 03/12/16 9:00:00 CSTNotes: (Same as: Zyloprim) Inactive 02/12/2016 [facility] Benzocaine 15 MG / Menthol 3.6 MG Lozenge [Cepacol Sore Throat Pain Relief 15/3.6] 1 lozenge, Route: MUCOUS MEM, Drug Form: ELIZA, Dosing Weight 86.364, kg, Q4H, PRN Sore Throat, Start date: 02/11/16 22:31:00 LIFTER DRIVER, Duration: 30 day, Stop date: 03/12/16 22:30:00 CSTNotes: Cepacol lozenges Dispense 1 box=16 lozenges (Same As: Cepacol Lozenges) No Longer Active 02/12/2016 [facility] cefdinir 300 MG Oral Capsule 300 mg, 1 cap, Route: PO, Drug form: CAP, Q12H, Dosing Weight 86.364, kg, Start date: 02/11/16 21:00:00 LIFTER DRIVER, Duration: 30 day, Stop date: 03/12/16 9:00:00 CSTNotes: (Same As: Omnicef) No Longer Active 02/12/2016 [facility] atorvastatin 20 mg, 1 tab, Route: PO, Drug form: TAB, Bedtime, Dosing Weight 86.364, kg, Start date: 02/11/16 21:00:00 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 DRIVER, Duration: 30 day, Stop date: 03/11/16 21:00:00 CSTNotes: (Same As: Lipitor) No Longer Active 02/12/2016 [facility] Eliquis 2.5 mg, 1 tab, Route: PO, Drug form: TAB, Q12H, Dosing Weight 86.364, kg, Start date: 02/11/16 21:00:00 LIFTER DRIVER, Duration: 30 day, Stop date: 03/12/16 9:00:00 CSTNotes: Same as: Eliquis No Longer Active 02/12/2016 [facility] Tylenol 325 mg, 1 tab, Route: PO, Drug form: TAB, Q6H, Dosing Weight 86.364, kg, PRN Pain Score 1-3, Start date: 02/11/16 20:38:00 LIFTER DRIVER, Duration: 30 day, Stop date: 03/12/16 20:37:00 CSTNotes: Do not exceed 4 gm/day. (Same as: Tylenol) No Longer Active 02/12/2016 [facility] metoprolol extended release 50 mg, 1 tab, Route: PO, Drug form: ERTAB, Daily, Start date: 02/11/16 18:00:00 LIFTER DRIVER, Duration: 30 day, Stop date: 03/12/16 9:00:00 CSTNotes: (Same as: Toprol XL) May split tab, but do not crush. No Longer Active 02/12/2016 [facility] pantoprazole 40 mg, 1 tab, Route: PO, Drug form: ECTAB, QPM, Dosing Weight 86.364, kg, Start date: 02/11/16 17:00:00 LIFTER DRIVER, Duration: 30 day, Stop date: 03/11/16 17:00:00 CSTNotes: Tablet should not be chewed or cr ushed. (Same as: Protonix) No Longer Active 02/11/2016 [facility] cefdinir 300 MG Oral Capsule 300 mg=1 cap, PO, Q12H, # 14 cap, 0 Refill(s) Active 02/11/2016 [facility] atorvastatin 20 mg oral tablet 20 mg=1 tab, PO, Bedtime, # 30 tab, 0 Refill(s) Active 02/11/2016 [facility] allopurinol 100 mg oral tablet 100 mg=1 tab, PO, Daily, # 60 tab, 0 Refill(s) Active 02/11/2016 [facility] pantoprazole 40 mg oral enteric coated tablet 40 mg=1 tab, PO, Daily, # 30 tab, 0 Refill(s) Active 02/11/2016 [facility] metoprolol 50 mg oral tablet, extended release 50 mg=1 tab, PO, Daily, # 30 tab, 0 Refill(s) Active 02/11/2016 [facility] sodium chloride 0.9% 1000 ml INJ 1,000 mL 1,000 mL, Rate: 50 ml/hr, Infuse over: 20 hr, Route: IV, Dosing Weight 86.364 kg, Total Volume: 1,000, Start date: 02/11/16 9:18:00 LIFTER DRIVER, Duration: 30 day, Stop date: 03/12/16 9:17:00 LIFTER DRIVER No Longer Active 02/11/2016 [facility] Clopidogrel Bisulfate (Plavix) 75 Mg Tablet, 75 Mg Oral Daily Active 08/08/[address] [facility] Rivaroxaban (Xarelto) 10 Mg Tablet, 10 Mg Oral Daily Active 08/08/[address] [facility] Gabapentin 300 Mg Capsule, 300 Mg Oral Twice A Day Active 12/17/[address] [facility] Warfarin Sodium (Coumadin) 2 Mg Tablet, 2 Mg Oral Every Evening Active 12/17/[address] [facility] Rosuvastatin Calcium (Crestor) 10 Mg Tablet, 10 Mg Oral Daily Active 11/15/[address] [facility] Allopurinol 300 Mg Tablet Daily Active [facility] Atorvastatin Calcium 80 Mg Tablet Bedtime Active [facility] Cyanocobalamin (Vitamin B-12) (B-12) 500 Mcg Tablet Daily Active [facility] Digoxin (Lanoxin) 125 Mcg Tablet Daily Active [facility] Diphenhydramine Hcl 25 Mg Capsule Daily Active [facility] Edoxaban Daily Active [facility] Eliquis Twice A Day Active [facility] Fluticasone Daily Active [facility] Hydrocodone Bit/Acetaminophen (Carver 5-325 Tablet) 1 Each Tablet Q4h Prn Pain Active [facility] Isosorbide Mononitrate 30 Mg Tab.er.24h Daily Active [facility] Metoprolol Tartrate 50 Mg Tablet Twice A Day Active [facility] Omeprazole 20 Mg Tablet. Twice A Day Active [facility] Vit C/Vit E/Lutein/Min/[place]-3 (Ocuvite Softgel) 1 Each Capsule Daily Active [facility] Allergies, Adverse Reactions, Alerts Substance Category Reaction Severity Reaction type Status Date Reported Comments Source Lisinopril Unknown Allergy to Substance Active 02/16/[address] [facility] No Known Medication Allergies Assertion Drug allergy [facility] [place] Immunizations No Data Provided for This Section Results Order Name Results Value Reference Range Date Interpretation Comments Source Urine color determination YELLOW YELLOW 08/18/[address] [facility] Urine clarity SL CLOUDY CLEAR 08/18/[address] [facility] Specific gravity of Urine by Test strip 1.020 1.010 - 1.025 08/18/[address] [facility] Urine pH measurement by automated test strip 5.5 5 - 7 08/18/[address] [facility] Urine leukocyte esterase detection by automated test strip NEGATIVE NEGATIVE 08/18/[address] [facility] Urine nitrite detection by automated test strip NEGATIVE NEGATIVE 08/18/[address] [facility] Urine protein detection by automated test strip 2+ NEGATIVE 08/18/[address] [facility] Urine glucose detection by automated test strip NEGATIVE NEGATIVE 08/18/[address] [facility] Urine ketones detection by automated test strip NEGATIVE NEGATIVE 08/18/[address] [facility] Urine urobilinogen measurement by test strip (mass/volume) 0.2 0.2 - 1 08/18/[address] [facility] Urine total bilirubin detection NEGATIVE NEGATIVE 08/18/[address] [facility] Urine erythrocytes detection NEGATIVE NEGATIVE 08/18/[address] [facility] Automated urine sediment leukocyte count by microscopy (number/high power field) NONE 0 - 5 08/18/[address] [facility] Erythrocytes detection in urine sediment by light microscopy NONE 0 - 5 08/18/[address] [facility] Bacteria detection in urine sediment by light microscopy FEW NONE 08/18/[address] [facility] Epithelial cells detection in urine sediment by light microscopy NONE NONE 08/18/[address] [facility] Hyaline casts detection in urine sediment by light microscopy 0-1 0 - 1 08/18/[address] [facility] Blood leukocytes automated count (number/volume) 5.68 4.8 - 10.8 08/18/[address] [facility] Blood erythrocytes automated count (number/volume) 4.71 4.3 - 5.7 08/18/[address] [facility] Blood hemoglobin measurement (moles/volume) 14.3 14.0 - 18.0 08/18/[address] [facility] Automated blood hematocrit (volume fraction) 44.9 38.2 - 49.6 08/18/[address] [facility] Automated erythrocyte mean corpuscular volume 95.3 81 - 99 08/18/[address] [facility] Automated erythrocyte mean corpuscular hemoglobin (mass per erythrocyte) 30.4 28 - 32 08/18/[address] [facility] Automated erythrocyte mean corpuscular hemoglobin concentration measurement (mass/volume) 31.8 31 - 35 08/18/[address] [facility] RDW BldCo-Rto 13.9 11.7 - 14.4 08/18/[address] [facility] Automated blood platelet count (count/volume) 159 140 - 360 08/18/[address] [facility] Automated blood segmented neutrophil count as percentage of total leukocytes 72.6 38.7 - 80.0 08/18/[address] [facility] Automated blood lymphocyte count as percentage ot total leukocytes 10.9 18.0 - 39.1 08/18/[address] [facility] Automated blood monocyte count as percentage of total leukocytes 13.7 4.4 - 11.3 08/18/[address] [facility] Automated blood eosinophil count as percentage of total leukocytes 1.9 0.0 - 6.0 08/18/[address] [facility] Automated blood basophil count as percentage of total leukocytes 0.5 0.0 - 1.0 08/18/[address] [facility] IM GRANULOCYTES % 0.4 0.0 - 1.0 08/18/[address] [facility] Automated blood neutrophil count 4.1 2.1 - 6.9 08/18/[address] [facility] Blood lymphocytes count (number/volume) 0.6 1.0 - 3.2 08/18/[address] [facility] Blood monocytes automated count (number/volume) 0.8 0.2 - 0.8 08/18/[address] [facility] Automated blood eosinophil count 0.1 0.0 - 0.4 08/18/[address] [facility] Automated blood basophil count (count/volume) 0.0 0.0 - 0.1 08/18/[address] [facility] Absolute Immature Granulocyte (auto 0.02 0 - 0.1 08/18/[address] [facility] Prothrombin time (PT) in platelet poor plasma by coagulation assay 14.1 11.9 - 14.5 08/18/[address] [facility] INR in Platelet poor plasma by Coagulation assay 1.04 08/18/[address] [facility] Activated partial thromboplastin time (aPTT) in platelet poor plasma bycoagulation assay 35.6 23.8 - 35.5 08/18/[address] [facility] Serum or plasma sodium measurement (moles/volume) 138 136 - 145 08/18/[address] [facility] Serum or plasma potassium measurement (moles/volume) 4.2 3.5 - 5.1 08/18/[address] [facility] Serum or plasma chloride measurement (moles/volume) 100 98 - 107 08/18/[address] [facility] Serum or plasma carbon dioxide, total measurement (moles/volume) 25 22 - 29 08/18/[address] [facility] Serum or plasma anion gap 17.2 8 - 16 08/18/[address] [facility] Serum or plasma urea nitrogen measurement (mass/volume) 68 7 - 26 08/18/[address] [facility] Serum or plasma creatinine measurement (mass/volume) 3.77 0.72 - 1.25 08/18/[address] [facility] Serum or plasma urea nitrogen/creatinine mass ratio 18 6 - 25 08/18/[address] [facility] Estimated glomerular filtration rate (GFR) determination 15 60 08/18/[address] [facility] Glucose measurement 96 74 - 118 08/18/[address] [facility] Serum or plasma calcium measurement (mass/volume) 9.8 8.4 - 10.2 08/18/[address] [facility] Serum or plasma total bilirubin measurement (mass/volume) 1.0 0.2 - 1.2 08/18/[address] [facility] Aspartate Amino Transf (AST/SGOT) 13 5 - 34 08/18/[address] [facility] Serum or plasma alanine aminotransferase measurement (enzymatic activity/volume) 8 0 - 55 08/18/[address] [facility] Serum or plasma protein measurement (mass/volume) 7.0 6.5 - 8.1 08/18/[address] [facility] Serum or plasma albumin measurement (mass/volume) 3.8 3.5 - 5.0 08/18/[address] [facility] Plasma globulin measurement (mass/volume) 3.2 2.3 - 3.5 08/18/[address] [facility] Serum or plasma albumin/globulin mass ratio 1.2 0.8 - 2.0 08/18/[address] [facility] Serum or plasma alkaline phosphatase measurement (enzymatic activity/volume) 85 40 - 150 08/18/[address] [facility] BNP Bld-nc 1884.7 0 - 100 08/18/[address] [facility] Serum or plasma creatine kinase measurement (enzymatic activity/volume) 46 30 - 200 08/18/[address] [facility] Serum or plasma creatine kinase MB measurement (mass/volume) 3.00 0 - 5.0 08/18/[address] [facility] Troponin I measurement by highly sensitive enzyme immunoassay 0.054 0 - 0.300 08/18/[address] [facility] CHEM PANEL eGFR 23 02/12/2016 Result Comment: [...] multiplied by the estimated BMI. [facility] CHEM PANEL Glucose Lvl 109 70 - 99 02/12/2016 [facility] CHEM PANEL Creatinine Lvl 2.57 0.50 - 1.40 02/12/2016 [facility] CHEM PANEL BUN 40 7 - 22 02/12/2016 [facility] CHEM PANEL Sodium Lvl 141 135 - 145 02/12/2016 [facility] CHEM PANEL Chloride Lvl 106 95 - 109 02/12/2016 [facility] CHEM PANEL Potassium Lvl 4.6 3.5 - 5.1 02/12/2016 [facility] CHEM PANEL Calcium Lvl 8.3 8.5 - 10.5 02/12/2016 [facility] CHEM PANEL CO2 26 24 - 32 02/12/2016 [facility] CHEM PANEL AGAP 13.6 10.0 - 20.0 02/12/2016 [facility] CHEM PANEL Phosphorus 3.0 2.5 - 4.5 02/12/2016 [facility] CHEM PANEL Magnesium Lvl 1.9 1.8 - 2.4 02/12/2016 [facility] ELECTROLYTES CO2 19 24 - 32 02/12/2016 [facility] ELECTROLYTES Chloride Lvl 107 95 - 109 02/12/2016 [facility] ELECTROLYTES Potassium Lvl 6.1 3.5 - 5.1 02/12/2016 [facility] ELECTROLYTES Sodium Lvl 137 135 - 145 02/12/2016 [facility] ELECTROLYTES Calcium Lvl 8.1 8.5 - 10.5 02/12/2016 [facility] ELECTROLYTES AGAP 17.1 10.0 - 20.0 02/12/2016 [facility] ELECTROLYTES Creatinine Lvl 2.28 0.50 - 1.40 02/12/2016 [facility] ELECTROLYTES BUN 34 7 - 22 02/12/2016 [facility] ELECTROLYTES Glucose Lvl 58 70 - 99 02/12/2016 [facility] ELECTROLYTES eGFR 26 02/12/2016 Result Comment: The [...] multiplied by the estimated BMI. [facility] HEMATOLOGY Eosinophils 2.8 0.0 - 4.0 02/12/2016 [facility] HEMATOLOGY Monocytes 7.2 2.0 - 12.0 02/12/2016 [facility] HEMATOLOGY Basophils 0.5 0.0 - 1.0 02/12/2016 [facility] HEMATOLOGY Segs-Bands # 6.8 1.5 - 8.1 02/12/2016 [facility] HEMATOLOGY Lymphocytes # 1.1 1.0 - 5.5 02/12/2016 [facility] HEMATOLOGY Eosinophils # 0.2 0.0 - 0.5 02/12/2016 [facility] HEMATOLOGY Monocytes # 0.6 0.0 - 0.8 02/12/2016 [facility] HEMATOLOGY Lymphocytes 12.6 20.0 - 40.0 02/12/2016 [facility] HEMATOLOGY Segs 76.9 45.0 - 75.0 02/12/2016 [facility] HEMATOLOGY MCH 32.4 27.0 - 31.0 02/12/2016 [facility] HEMATOLOGY MCHC 34.4 32.0 - 36.0 02/12/2016 [facility] HEMATOLOGY RDW 13.4 11.5 - 14.5 02/12/2016 [facility] HEMATOLOGY MPV 10.1 7.4 - 10.4 02/12/2016 [facility] HEMATOLOGY Platelet 177 133 - 450 02/12/2016 [facility] HEMATOLOGY RBC 3.55 4.70 - 6.10 02/12/2016 [facility] HEMATOLOGY WBC 8.8 3.7 - 10.4 02/12/2016 [facility] HEMATOLOGY Hgb 11.5 14.0 - 18.0 02/12/2016 [facility] HEMATOLOGY MCV 94.1 80.0 - 94.0 02/12/2016 [facility] HEMATOLOGY Hct 33.4 42.0 - 54.0 02/12/2016 [facility] BLOOD BANK RESULTS RBC product Product available (02/11/16 9:20 AM) 02/11/2016 [facility] BLOOD BANK RESULTS Antibody Scrn Negative (02/11/16 9:20 AM) 02/11/2016 [facility] BLOOD BANK RESULTS ABO/Rh A POS 02/11/2016 [facility] CHEM PANEL Magnesium Lvl 1.8 1.8 - 2.4 02/11/2016 [facility] ELECTROLYTES AGAP 12.5 10.0 - 20.0 02/11/2016 [facility] ELECTROLYTES eGFR 25 02/11/2016 Result Comment: The [...] multiplied by the estimated BMI. [facility] ELECTROLYTES Sodium Lvl 142 135 - 145 02/11/2016 [facility] ELECTROLYTES BUN 38 7 - 22 02/11/2016 [facility] ELECTROLYTES Creatinine Lvl 2.37 0.50 - 1.40 02/11/2016 [facility] ELECTROLYTES Calcium Lvl 9.1 8.5 - 10.5 02/11/2016 [facility] ELECTROLYTES Chloride Lvl 107 95 - 109 02/11/2016 [facility] ELECTROLYTES CO2 27 24 - 32 02/11/2016 [facility] ELECTROLYTES Potassium Lvl 4.5 3.5 - 5.1 02/11/2016 [facility] ELECTROLYTES Glucose Lvl 106 70 - 99 02/11/2016 [facility] HEMATOLOGY Eosinophils # 0.4 0.0 - 0.5 02/11/2016 [facility] HEMATOLOGY Monocytes # 0.7 0.0 - 0.8 02/11/2016 [facility] HEMATOLOGY Lymphocytes 11.6 20.0 - 40.0 02/11/2016 [facility] HEMATOLOGY Eosinophils 5.2 0.0 - 4.0 02/11/2016 [facility] HEMATOLOGY Monocytes 9.4 2.0 - 12.0 02/11/2016 [facility] HEMATOLOGY Basophils 0.6 0.0 - 1.0 02/11/2016 [facility] HEMATOLOGY Segs-Bands # 5.2 1.5 - 8.1 02/11/2016 [facility] HEMATOLOGY Lymphocytes # 0.8 1.0 - 5.5 02/11/2016 [facility] HEMATOLOGY Segs 73.2 45.0 - 75.0 02/11/2016 [facility] HEMATOLOGY Hct 37.1 42.0 - 54.0 02/11/2016 [facility] HEMATOLOGY MCV 93.9 80.0 - 94.0 02/11/2016 [facility] HEMATOLOGY MPV 8.7 7.4 - 10.4 02/11/2016 [facility] HEMATOLOGY Platelet 169 133 - 450 02/11/2016 [facility] HEMATOLOGY MCHC 33.2 32.0 - 36.0 02/11/2016 [facility] HEMATOLOGY MCH 31.2 27.0 - 31.0 02/11/2016 [facility] HEMATOLOGY RDW 13.3 11.5 - 14.5 02/11/2016 [facility] HEMATOLOGY WBC 7.1 3.7 - 10.4 02/11/2016 [facility] HEMATOLOGY Hgb 12.3 14.0 - 18.0 02/11/2016 [facility] HEMATOLOGY RBC 3.96 4.70 - 6.10 02/11/2016 [facility] HEMATOLOGY PT 15.2 12.0 - 14.7 02/11/2016 [facility] HEMATOLOGY INR 1.18 0.85 - 1.17 02/11/2016 [facility] HEMATOLOGY PTT 36.1 22.9 - 35.8 02/11/2016 [facility] BLOOD BANK RESULTS ABO/Rh A POS 02/02/2016 [facility] BLOOD BANK RESULTS Antibody Scrn Negative (02/02/16 12:25 PM) 02/02/2016 [facility] Pathology Reports No Data Provided for This [...] Impression: 1. Unremarkable bladder ultrasound. 04/26/2018 DAVID [place] Retroperitoneal Complete US Exam: RETROPERITONEAL ULTRASOUND. Reason [...] as well as vascular surgery consultation. 01/09/2018 DAVID Contreras Bladder US Exam: Bilateral renal ultrasound [...] as well as vascular surgery consultation. 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 3. Basilar atelectasis. 02/12/2016 [facility] Consultation Notes No Data Provided for This Section Discharge Summaries No Data Provided for This Section History and Physicals No Data Provided for This Section Vital Signs Vital Sign Value Date Comments Source Height 182.88 cm 03/30/2016 [facility] BMI Calculated 25.82 03/30/2016 [facility] Weight 86.364 03/30/2016 [facility] Systolic (mm Hg) 156 02/12/2016 [facility] Diastolic (mm Hg) 76 02/12/2016 [facility] Systolic (mm Hg) 166 02/12/2016 [facility] Diastolic (mm Hg) 73 02/12/2016 [facility] Systolic (mm Hg) 151 02/12/2016 [facility] Diastolic (mm Hg) 66 02/12/2016 [facility] Respitory Rate 18 02/12/2016 [facility] Respitory Rate 20 02/12/2016 [facility] Respitory Rate 13 02/12/2016 [facility] Weight 86.364 02/11/2016 [facility] BMI Calculated 25.82 02/11/2016 [facility] Height 182.88 cm 02/11/2016 [facility] Encounters Location Location Details Encounter Type Encounter Number Reason For Visit Attending Provider ADM Date DC Date Status Source [facility] Inpatient [id number] Josiane Medina 02/11/2016 02/13/2016 [facility] Outpatient [id number] Josiane Medina 03/30/2016 03/31/2016 [facility] [place] [facility] [id number] Jacoby Rodríguez 01/09/2018 01/10/2018 DAVID Contreras [facility] [place] [facility] [id number] Dawn Baum 04/26/2018 04/27/2018 [facility] [id number] DAWN BAUM MD 07/31/[address] [facility] Departed Emergency Room [id number] LILA COLLAZO MD 08/18/2018 08/18/[address] [facility] Procedures Procedure Code Date Perfomer Comments Source CT of abdomen and pelvis without contrast [id number] 08/18/2018 [facility] X-ray of chest, two views [id number] 07/31/2018 [facility] Cataract extraction [id number] [facility] DAVID Contreras Pacemaker care management [id number] [facility] DAVID Contreras Assessment and Plan Assessment and Plan Date Source Extracted from:Title: post op check Author: Josr Dale MD PHD Date: 02/12/16 Pt was seen and examined in AM. No SOB/CP/Palpitations. No AEON. Right groin area with no evidence of hematoma or swelling. Figure of 8 sutures were removed, sterile dressing was applied. 02/13/2016 [facility] Plan of Care Plan of Care Date Source Discharge Date 08/18/18 11:29pm Disposition HOME, SELF-CARE Condition at Discharge Stable Instructions/Education Provided Ascites Dyspnea Pleural Effusion Prescriptions See Medication Section Referrals JEFF OGDEN DO Address: [address] [place] [id number] Additional Instructions/Education 1. FOLLOW UP WITH YOUR DOCTOR. CALL FOR AN APPIONTENT. 2. RETURN TO ED IF SYMPTOMS WORSEN OR HAVE ANY CONCERNS. 08/18/[address] [facility] Social History Social History Date Source Social History Problem Response Recorded Date/Time Onset Date Status Hx Psychiatric Problems No 09/19/2015 10:53pm Not Applicable Not Applicable Hx Eating Disorder No 09/19/2015 10:53pm Not Applicable Not Applicable Hx Substance Use Disorder No 09/19/2015 10:53pm Not Applicable Not Applicable Hx Depression No 09/19/2015 10:53pm Not Applicable Not Applicable Hx Alcohol Use Yes 09/19/2015 10:53pm Not Applicable Not Applicable Hx Substance Use Treatment No 09/19/2015 10:53pm Not Applicable Not Applicable Hx Physical Abuse No 09/19/2015 10:53pm Not Applicable Not Applicable Smoking Status Start Date Stop Date Former smoker 08/18/[address] [facility] Social History TypeResponse Alcohol Current, Type Beer, [...] Cessation Counseling No entered on: 02/11/16 02/12/2016 DAVID Contreras Social History TypeResponse Alcohol Current, Type Beer, [...] Smoking Cessation Counseling No 02/12/2016 [facility] Family History No Data Provided for This Section Advance Directives Order Name Results Value Date Source Advance Directives Advance Directives Directive Response Recorded Date/Time Does the patient have an advance directive? Yes 05/20/17 12:15pm If yes, is advance directive on file with [facility]? No 09/19/15 10:53pm If not on file with [facility] will patient provide a copy? Yes 05/20/17 12:15pm Do you have a Directive to Physician? Yes 08/18/18 5:36pm Do you have a Medical Power of Belt Sander? Yes 08/18/18 5:36pm Do you have an out of hospital Do Not Resuscitate Order? Yes 08/18/18 5:36pm Do you have any special needs we should be aware of? No 08/18/18 5:36pm Do you have a support person here with you today? Yes 08/18/18 5:36pm Did patient receive Notice of Privacy Practices? Yes 08/18/18 5:37pm Did patient receive patient rights and responsibilities? Yes 08/18/18 5:37pm 08/18/[address] [facility] Functional Status No Data Provided for This Section
[2018-11-15] MEDS ORDERED: VANCOMYCIN 1GM/NS 250 ML 250 ML IV ONE (13:00)
--- NOTE | 2018-11-15 14:31 | Diagnostic Imaging Report ---
Chest, 1 view, 11/15/2018. History: Shaking, chills. Comparison: 08/18/2018. Findings: The cardiomediastinal silhouette and pulmonary vasculature are within normal limits for a portable exam. Linear opacities are present at the lung bases. There is no focal consolidation or pleural effusion. Left subclavian AICD/pacer is unchanged in appearance. There are no acute osseous or soft tissue abnormalities. Impression: Bibasilar atelectasis. Signed by: Ariel Hays on 11/15/2018 2:28 PM
[2018-11-15 14:40] LABS: ALBUMIN 3.5 g/dL (3.5-5.0); ALKALINE PHOSPHATASE 90 IU/L (40-150); ANION GAP 17.4 mmol/L (8-16); BLOOD UREA NITROGEN 21 mg/dL (7-26); BUN/CREATININE RATIO 7 (6-25); CALCIUM 9.7 mg/dL (8.4-10.2); CARBON DIOXIDE 29 mmol/L (22-29); CHLORIDE 93 mmol/L (98-107); CREATINE KINASE 19 IU/L (30-200); CREATININE, SERUM 3.02 mg/dL (0.72-1.25); EST GLOMERULAR FILTRATION RATE 20 ML/MIN (60-); GLUCOSE 106 mg/dL (74-118); LIPASE 19 U/L (8-78); POTASSIUM 4.4 mmol/L (3.5-5.1); SODIUM 135 mmol/L (136-145)
[2018-11-15 14:45] LABS: ALANINE AMINOTRANSFERASE < 6 IU/L (0-55)
[2018-11-15 15:55] LABS: BILIRUBIN,URINE SMALL (NEGATIVE); CLARITY,URINE SL CLOUDY (CLEAR); KETONES,URINE NEGATIVE (NEGATIVE); LEUKOCYTE ESTERASE ,URINE TRACE (NEGATIVE); NITRITE,URINE NEGATIVE (NEGATIVE); URINE UROBILINOGEN 2 mg/dL (0.2 - 1)
[2018-11-15 15:58] LABS: COLOR,URINE STRAW (YELLOW); PROTEIN,URINE DIPSTICK 3+ (NEGATIVE)
[2018-11-15 16:10] LABS: BACTERIA,URINE MANY /HPF; EPITHELIAL CELLS,URINE FEW /LPF; WBC,URINE (MAN) 0-5 /HPF (0-5)
[2018-11-15 16:22] LABS: BASOPHILS % 0.2 % (0.0-1.0); EOSINOPHILS % 0.1 % (0.0-6.0); HEMATOCRIT 38.2 % (38.2-49.6); HEMOGLOBIN 12.3 g/dL (14.0-18.0); LYMPHOCYTES # (AUTO) 0.5 (1.0-3.2); LYMPHOCYTES % 2.7 % (18.0-39.1); MEAN CORPUSCULAR HEMOGLOBIN 30.6 pg (28-32); MEAN CORPUSCULAR HGB CONC 32.2 g/dL (31-35); MONOCYTES # (AUTO) 1.1 (0.2-0.8); MONOCYTES % 5.5 % (4.4-11.3); NEUTROPHILS # (AUTO) 16.8 (2.1-6.9); NEUTROPHILS % 88.8 % (38.7-80.0); PLATELET COUNT 127 x10e3/uL (140-360); RED BLOOD COUNT 4.02 x10e6/uL (4.3-5.7); RED CELL DISTRIBUTION WIDTH 18.5 % (11.7-14.4)
[2018-11-15] MEDS ORDERED: VANCOMYCIN HCL 1GM/NS 250 ML BAG IV SCH (16:30)
[2018-11-15] MEDS ORDERED: SODIUM CHLORIDE 0.9% 1000ML 1,000 ML IV SCH (16:45)
--- OUTSIDE RECORDS SUMMARY | 2018-11-15 16:45 | XMS REPORT | Clinical Summary ---
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 Name Role Phone Marek Perez Unavailable Allergies [...] ms QTC Calculatio n(Bazett) 486 ms R [place] 264 degrees T [place] 89 degrees Ventricul ar-paced rhythm Biventricu lar pacemaker detected Abnormal ECG When compared with ECG of 2 08:09, Electronic ventricula r pacemaker has replaced Sinus rhythm ECG 12-LEAD Routine 06/22/2018 1:37 PM CDT after 11/14/2017 Results * TRANSFUSION SERVICE REPORT - SCAN (06/23/2018 6:04 PM CDT) Narrative Performed At * Potassium-Stat Lab (06/23/2018 6:18 AM CDT) Potassium 5.0 3.6 - 5.5 meq/L [facility] Specimen Blood, Arterial Performing Organization Address City[facility] [place] [address] [phone] [place] [address] * Glucose-Stat Lab (06/23/2018 6:18 AM CDT) Glucose 83 70 - 110 mg/dL [facility] Specimen Blood, Arterial Performing Organization Address [facility] Phone Number [address] * HGB/HCT (H&H)-Stat Lab (06/23/2018 6:18 AM CDT) Hemoglobin 13.9 13.0 - 16.8 g/dL [facility] Hematocrit 41.0 40.0 - 50.0 % [facility] Specimen Blood, Arterial Performing Organization Address [facility] Phone Number [address] * POC-Glucose meter (06/23/2018 5:39 AM CDT) POC-Glucose Meter 95Comment: TESTED AT [facility] 70 - 110 mg/dL [address] Specimen Blood Performing Organization Address [facility] [place] [address] [phone] [place] [address] * Type and screen, automated (06/22/2018 2:32 PM CDT) ABO/RH AUTOMATED (BEAKER) A POSITIVE [facility] Ab Scrn NEGATIVE [facility] Specimen Blood Performing Organization Address City/[facility] Phone Number [address] * Hemoglobin and hematocrit (06/22/2018 2:32 PM CDT) Hemoglobin 12.9 (L) 13.7 - 17.5 GM/DL [facility] Hematocrit 40.1 40.1 - 51.0 % [facility] Specimen Blood Performing Organization Address [facility] Phone Number [address] * Potassium (06/22/2018 2:32 PM CDT) Potassium 5.7 (H) 3.5 - 5.1 meq/L [facility] Specimen Blood Narrative Performed At If diabetic [facility] If Potassium greater than 5.5 mEq/L, call trucksmith [facility] Performing Organization Address [facility] Phone Number [address] * Glucose (06/22/2018 2:32 PM CDT) Glucose 88 70 - 105 mg/dL [facility] Specimen Blood Narrative Performed At If diabetic [facility] If Potassium greater than 5.5 mEq/L, call trucksmith [facility] Performing Organization Address City/[facility] Phone Number [address] [address] [phone] * ECG 12 lead (06/22/2018 1:37 PM CDT) Specimen Narrative Performed At Ventricular Rate 70 BPM GE MUSE Atrial Rate 72 BPM QRS Duration 150 ms Q-T Interval 450 ms QTC Calculation(Bazett) 486 ms R [place] 264 degrees T [place] 89 degrees Ventricular-paced rhythm Biventricular pacemaker detected [...] 450 ms QTC Calculation(Bazett) 486 ms R [place] 264 degrees T [place] 89 degrees Ventricular-paced rhythm Biventricular pacemaker detected [...] BLUE CROSS/BLUE SHIELD BCBS FED xxxxxxxxx PPO [phone] [address] [place] [address] Advance Directives For more information, please contact: [facility] [address] [place] [address] Date Inactivated Comments Code Status Date Activated 06/23/2018 5:40 PM Full Code 06/23/2018 5:59 AM This code status was determined by: Patient
--- OUTSIDE RECORDS SUMMARY | 2018-11-15 16:45 | XMS REPORT | Continuity of Care Document ---
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 Role Phone [employer] Information [employer] Unavailable Unavailable Problems Problem Status Onset Date Classification Date Reported Comments Source Chronic kidney disease, stage 4 (severe) 04/29/2018 11/14/2018 [facility] Chronic kidney disease, stage 4 01/13/2018 07/29/2018 [facility] I48.2,I50.22,I10 Active 02/25/2016 [facility] AFIB Active 01/01/2016 [facility] PAROXYSMAL ATRIAL FIBRILATION Active 01/01/2016 [facility] Cellulitis Active 09/19/2015 Problem 08/19/2018 [facility] 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 Active 08/08/2015 Problem 08/19/2018 [facility] Cyst of kidney, acquired 11/14/2018 [facility] Other specified disorders of kidney and ureter 07/29/2018 [facility] Abdominal aortic ectasia 07/29/2018 [facility] Atrial fibrillation Resolved Problem 07/29/[facility] Kidney carcinoma Resolved Problem 07/29/2018 [facility] CHF (Confirmed) Resolved Problem 07/29/2018 [facility] Hyperlipidemia Resolved Problem 07/29/2018 [facility] HTN (Confirmed) Resolved Problem 07/29/2018 [facility] ASHLEY (Confirmed) Resolved Problem 07/29/2018 [facility] Atrial fibrillation (disorder) Resolved Problem 11/14/2018 [facility] 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 11/14/2018 [facility] Congestive heart failure (disorder) Resolved Problem 11/14/2018 [facility] Hyperlipidemia (disorder) Resolved Problem 11/14/2018 [facility] Hypertensive disorder, systemic arterial (disorder) Resolved Problem 11/14/2018 [facility] Obstructive sleep apnea syndrome (disorder) Resolved Problem 11/14/2018 [facility] OTHER SPECIFIED CONGENITAL DEFORMITIES Active [facility] CHRONIC ATRIAL FIBRILLATION Active [facility] CHRONIC SYSTOLIC (CONGESTIVE) HEART FAIL Active [facility] ESSENTIAL (PRIMARY) HYPERTENSION Active [facility] Medications Medication Details Route Status Patient Instructions Ordering Provider Order Date Source Enoxaparin Sodium (Lovenox) 80 Mg/0.8 Ml Inj, 80 Mg Sub-Q Twice A Day Active 02/16/2016 [facility] Aspirin 81 MG Enteric Coated Tablet 81 mg=1 tab, PO, Daily, 0 Refill(s) Active 02/12/2016 [facility] apixaban 2.5 mg oral tablet 2.5 mg=1 tab, PO, Q12H, 0 Refill(s) Active 02/12/2016 [facility] metoprolol 50 mg oral tablet, extended release 50 mg=1 tab, PO, Daily, 0 Refill(s) Active 02/12/2016 [facility] atorvastatin 20 mg oral tablet 20 mg=1 tab, PO, Bedtime, 0 Refill(s) Active 02/12/2016 [facility] allopurinol 100 mg oral tablet 100 mg=1 tab, PO, Daily, 0 Refill(s) Active 02/12/2016 [facility] Aspirin 81 mg, 1 tab, Route: PO, Drug form: ECTAB, Daily, Dosing Weight 86.364, kg, Start date: 02/12/16 9:00:00 [employer]PER[employer], Duration: 30 day, Stop date: 03/12/16 9:00:00 CSTNotes: Do not crush or chew. (Same As: Ecotrin) Inactive 02/12/2016 [facility] Allopurinol 100 mg, 1 tab, Route: PO, Drug form: TAB, Daily, Dosing Weight 86.364, kg, Start date: 02/12/16 9:00:00 [employer]PER[employer], Duration: 30 day, Stop date: 03/12/16 9:00:00 CSTNotes: (Same as: Zyloprim) Inactive 02/12/2016 [facility] Benzocaine 15 MG / Menthol 3.6 MG Lozenge [Cepacol Sore Throat Pain Relief 15/3.6] 1 lozenge, Route: MUCOUS MEM, Drug Form: ELIZA, Dosing Weight 86.364, kg, Q4H, PRN Sore Throat, Start date: 02/11/16 22:31:00 [employer] OPERATOR, Duration: 30 day, Stop date: 03/12/16 22:30:00 CSTNotes: Cepacol lozenges Dispense 1 box=16 lozenges (Same As: Cepacol Lozenges) No Longer Active 02/12/2016 [facility] cefdinir 300 MG Oral Capsule 300 mg, 1 cap, Route: PO, Drug form: CAP, Q12H, Dosing Weight 86.364, kg, Start date: 02/11/16 21:00:00 [employer] OPERATOR, Duration: 30 day, Stop date: 03/12/16 9:00:00 CSTNotes: (Same As: Omnicef) No Longer Active 02/12/2016 [facility] atorvastatin 20 mg, 1 tab, Route: PO, Drug form: TAB, Bedtime, Dosing Weight 86.364, kg, Start date: 02/11/16 21:00:00 [employer] OPERATOR, Duration: 30 day, Stop date: 03/11/16 21:00:00 CSTNotes: (Same As: Lipitor) No Longer Active 02/12/2016 [facility] Eliquis 2.5 mg, 1 tab, Route: PO, Drug form: TAB, Q12H, Dosing Weight 86.364, kg, Start date: 02/11/16 21:00:00 [employer] OPERATOR, Duration: 30 day, Stop date: 03/12/16 9:00:00 CSTNotes: Same as: Eliquis No Longer Active 02/12/2016 [facility] Tylenol 325 mg, 1 tab, Route: PO, Drug form: TAB, Q6H, Dosing Weight 86.364, kg, PRN Pain Score 1-3, Start date: 02/11/16 20:38:00 [employer] OPERATOR, Duration: 30 day, Stop date: 03/12/16 20:37:00 CSTNotes: Do not exceed 4 gm/day. (Same as: Tylenol) No Longer Active 02/12/2016 [facility] metoprolol extended release 50 mg, 1 tab, Route: PO, Drug form: ERTAB, Daily, Start date: 02/11/16 18:00:00 [employer] OPERATOR, Duration: 30 day, Stop date: 03/12/16 9:00:00 CSTNotes: (Same as: Toprol XL) May split tab, but do not crush. No Longer Active 02/12/2016 [facility] pantoprazole 40 mg, 1 tab, Route: PO, Drug form: ECTAB, QPM, Dosing Weight 86.364, kg, Start date: 02/11/16 17:00:00 [employer] OPERATOR, Duration: 30 day, Stop date: 03/11/16 17:00:00 CSTNotes: Tablet should not be chewed or cr ushed. (Same as: Protonix) No Longer Active 02/11/2016 [facility] cefdinir 300 MG Oral Capsule 300 mg=1 cap, PO, Q12H, # 14 cap, 0 Refill(s) Active 02/11/2016 [facility] atorvastatin 20 mg oral tablet 20 mg=1 tab, PO, Bedtime, # 30 tab, 0 Refill(s) Active 02/11/2016 [facility] allopurinol 100 mg oral tablet 100 mg=1 tab, PO, Daily, # 60 tab, 0 Refill(s) Active 02/11/2016 [facility] pantoprazole 40 mg oral enteric coated tablet 40 mg=1 tab, PO, Daily, # 30 tab, 0 Refill(s) Active 02/11/2016 [facility] metoprolol 50 mg oral tablet, extended release 50 mg=1 tab, PO, Daily, # 30 tab, 0 Refill(s) Active 02/11/2016 [facility] sodium chloride 0.9% 1000 ml INJ 1,000 mL 1,000 mL, Rate: 50 ml/hr, Infuse over: 20 hr, Route: IV, Dosing Weight 86.364 kg, Total Volume: 1,000, Start date: 02/11/16 9:18:00 [employer] OPERATOR, Duration: 30 day, Stop date: 03/12/16 9:17:00 [employer] OPERATOR No Longer Active 02/11/2016 [facility] Clopidogrel Bisulfate (Plavix) 75 Mg Tablet, 75 Mg Oral Daily Active 08/08/2015 [facility] Rivaroxaban (Xarelto) 10 Mg Tablet, 10 Mg Oral Daily Active 08/08/2015 [facility] Gabapentin 300 Mg Capsule, 300 Mg Oral Twice A Day Active 12/17/2013 [facility] Warfarin Sodium (Coumadin) 2 Mg Tablet, 2 Mg Oral Every Evening Active 12/17/2013 [facility] Rosuvastatin Calcium (Crestor) 10 Mg Tablet, 10 Mg Oral Daily Active 11/15/2012 [facility] Allopurinol 300 Mg Tablet Daily Active [facility] Atorvastatin Calcium 80 Mg Tablet Bedtime Active [facility] Cyanocobalamin (Vitamin B-12) (B-12) 500 Mcg Tablet Daily Active [facility] Digoxin (Lanoxin) 125 Mcg Tablet Daily Active [facility] Diphenhydramine Hcl 25 Mg Capsule Daily Active [facility] Edoxaban Daily Active [facility] Eliquis Twice A Day Active [facility] Fluticasone Daily Active [facility] Hydrocodone Bit/Acetaminophen ([place] 5-325 Tablet) 1 Each Tablet Q4h Prn Pain Active [facility] Isosorbide Mononitrate 30 Mg Tab.er.24h Daily Active [facility] Metoprolol Tartrate 50 Mg Tablet Twice A Day Active [facility] Omeprazole 20 Mg Tablet. Twice A Day Active [facility] Vit C/Vit E/Lutein/Min/Tuttle-3 (Ocuvite Softgel) 1 Each Capsule Daily Active [facility] Allergies, Adverse Reactions, Alerts Substance Category Reaction Severity Reaction type Status Date Reported Comments Source Lisinopril Unknown Allergy to Substance Active 02/16/2016 [facility] No Known Medication Allergies Assertion Drug allergy [facility] Immunizations No Data Provided for This Section Results Order Name Results Value Reference Range Date Interpretation Comments Source Urine color determination YELLOW YELLOW 08/18/2018 [facility] Urine clarity SL CLOUDY CLEAR 08/18/2018 [facility] Specific gravity of Urine by Test strip 1.020 1.010 - 1.025 08/18/2018 [facility] Urine pH measurement by automated test strip 5.5 5 - 7 08/18/2018 [facility] Urine leukocyte esterase detection by automated test strip NEGATIVE NEGATIVE 08/18/2018 [facility] Urine nitrite detection by automated test strip NEGATIVE NEGATIVE 08/18/2018 [facility] Urine protein detection by automated test strip 2+ NEGATIVE 08/18/2018 [facility] Urine glucose detection by automated test strip NEGATIVE NEGATIVE 08/18/2018 [facility] Urine ketones detection by automated test strip NEGATIVE NEGATIVE 08/18/2018 [facility] Urine urobilinogen measurement by test strip (mass/volume) 0.2 0.2 - 1 08/18/2018 [facility] Urine total bilirubin detection NEGATIVE NEGATIVE 08/18/2018 [facility] Urine erythrocytes detection NEGATIVE NEGATIVE 08/18/2018 [facility] Automated urine sediment leukocyte count by microscopy (number/high power field) NONE 0 - 5 08/18/2018 [facility] Erythrocytes detection in urine sediment by light microscopy NONE 0 - 5 08/18/2018 [facility] Bacteria detection in urine sediment by light microscopy FEW NONE 08/18/2018 [facility] Epithelial cells detection in urine sediment by light microscopy NONE NONE 08/18/2018 [facility] Hyaline casts detection in urine sediment by light microscopy 0-1 0 - 1 08/18/2018 [facility] Blood leukocytes automated count (number/volume) 5.68 4.8 - 10.8 08/18/2018 [facility] Blood erythrocytes automated count (number/volume) 4.71 4.3 - 5.7 08/18/2018 [facility] Blood hemoglobin measurement (moles/volume) 14.3 14.0 - 18.0 08/18/2018 [facility] Automated blood hematocrit (volume fraction) 44.9 38.2 - 49.6 08/18/2018 [facility] Automated erythrocyte mean corpuscular volume 95.3 81 - 99 08/18/2018 [facility] Automated erythrocyte mean corpuscular hemoglobin (mass per erythrocyte) 30.4 28 - 32 08/18/2018 [facility] Automated erythrocyte mean corpuscular hemoglobin concentration measurement (mass/volume) 31.8 31 - 35 08/18/2018 [facility] RDW BldCo-Rto 13.9 11.7 - 14.4 08/18/2018 [facility] Automated blood platelet count (count/volume) 159 140 - 360 08/18/2018 [facility] Automated blood segmented neutrophil count as percentage of total leukocytes 72.6 38.7 - 80.0 08/18/2018 [facility] Automated blood lymphocyte count as percentage ot total leukocytes 10.9 18.0 - 39.1 08/18/2018 [facility] Automated blood monocyte count as percentage of total leukocytes 13.7 4.4 - 11.3 08/18/2018 [facility] Automated blood eosinophil count as percentage of total leukocytes 1.9 0.0 - 6.0 08/18/2018 [facility] Automated blood basophil count as percentage of total leukocytes 0.5 0.0 - 1.0 08/18/2018 [facility] IM GRANULOCYTES % 0.4 0.0 - 1.0 08/18/2018 [facility] Automated blood neutrophil count 4.1 2.1 - 6.9 08/18/2018 [facility] Blood lymphocytes count (number/volume) 0.6 1.0 - 3.2 08/18/2018 [facility] Blood monocytes automated count (number/volume) 0.8 0.2 - 0.8 08/18/2018 [facility] Automated blood eosinophil count 0.1 0.0 - 0.4 08/18/2018 [facility] Automated blood basophil count (count/volume) 0.0 0.0 - 0.1 08/18/2018 [facility] Absolute Immature Granulocyte (auto 0.02 0 - 0.1 08/18/2018 [facility] Prothrombin time (PT) in platelet poor plasma by coagulation assay 14.1 11.9 - 14.5 08/18/2018 [facility] INR in Platelet poor plasma by Coagulation assay 1.04 08/18/2018 [facility] Activated partial thromboplastin time (aPTT) in platelet poor plasma bycoagulation assay 35.6 23.8 - 35.5 08/18/2018 [facility] Serum or plasma sodium measurement (moles/volume) 138 136 - 145 08/18/2018 [facility] Serum or plasma potassium measurement (moles/volume) 4.2 3.5 - 5.1 08/18/2018 [facility] Serum or plasma chloride measurement (moles/volume) 100 98 - 107 08/18/2018 [facility] Serum or plasma carbon dioxide, total measurement (moles/volume) 25 22 - 29 08/18/2018 [facility] Serum or plasma anion gap 17.2 8 - 16 08/18/2018 [facility] Serum or plasma urea nitrogen measurement (mass/volume) 68 7 - 26 08/18/2018 [facility] Serum or plasma creatinine measurement (mass/volume) 3.77 0.72 - 1.25 08/18/2018 [facility] Serum or plasma urea nitrogen/creatinine mass ratio 18 6 - 25 08/18/2018 [facility] Estimated glomerular filtration rate (GFR) determination 15 60 08/18/2018 [facility] Glucose measurement 96 74 - 118 08/18/2018 [facility] Serum or plasma calcium measurement (mass/volume) 9.8 8.4 - 10.2 08/18/2018 [facility] Serum or plasma total bilirubin measurement (mass/volume) 1.0 0.2 - 1.2 08/18/2018 [facility] Aspartate Amino Transf (AST/SGOT) 13 5 - 34 08/18/2018 [facility] Serum or plasma alanine aminotransferase measurement (enzymatic activity/volume) 8 0 - 55 08/18/2018 [facility] Serum or plasma protein measurement (mass/volume) 7.0 6.5 - 8.1 08/18/2018 [facility] Serum or plasma albumin measurement (mass/volume) 3.8 3.5 - 5.0 08/18/2018 [facility] Plasma globulin measurement (mass/volume) 3.2 2.3 - 3.5 08/18/2018 [facility] Serum or plasma albumin/globulin mass ratio 1.2 0.8 - 2.0 08/18/2018 [facility] Serum or plasma alkaline phosphatase measurement (enzymatic activity/volume) 85 40 - 150 08/18/2018 [facility] BNP Bld-nc 1884.7 0 - 100 08/18/2018 [facility] Serum or plasma creatine kinase measurement (enzymatic activity/volume) 46 30 - 200 08/18/2018 [facility] Serum or plasma creatine kinase MB measurement (mass/volume) 3.00 0 - 5.0 08/18/2018 [facility] Troponin I measurement by highly sensitive enzyme immunoassay 0.054 0 - 0.300 08/18/2018 [facility] CHEM PANEL eGFR 23 02/12/2016 Result Comment: [...] should be multiplied by the estimated BMI. [facility] CHEM PANEL Glucose Lvl 109 70 - 99 02/12/2016 [facility] CHEM PANEL Creatinine Lvl 2.57 0.50 - 1.40 02/12/2016 [facility] CHEM PANEL BUN 40 7 - 22 02/12/2016 [facility] CHEM PANEL Sodium Lvl 141 135 - 145 02/12/2016 [facility] CHEM PANEL Chloride Lvl 106 95 - 109 02/12/2016 [facility] CHEM PANEL Potassium Lvl 4.6 3.5 - 5.1 02/12/2016 [facility] CHEM PANEL Calcium Lvl 8.3 8.5 - 10.5 02/12/2016 [facility] CHEM PANEL CO2 26 24 - 32 02/12/2016 [facility] CHEM PANEL AGAP 13.6 10.0 - 20.0 02/12/2016 [facility] CHEM PANEL Phosphorus 3.0 2.5 - 4.5 02/12/2016 [facility] CHEM PANEL Magnesium Lvl 1.9 1.8 - 2.4 02/12/2016 [facility] ELECTROLYTES CO2 19 24 - 32 02/12/2016 [facility] ELECTROLYTES Chloride Lvl 107 95 - 109 02/12/2016 [facility] ELECTROLYTES Potassium Lvl 6.1 3.5 - 5.1 02/12/2016 [facility] ELECTROLYTES Sodium Lvl 137 135 - 145 02/12/2016 [facility] ELECTROLYTES Calcium Lvl 8.1 8.5 - 10.5 02/12/2016 [facility] ELECTROLYTES AGAP 17.1 10.0 - 20.0 02/12/2016 [facility] ELECTROLYTES Creatinine Lvl 2.28 0.50 - 1.40 02/12/2016 [facility] ELECTROLYTES BUN 34 7 - 22 02/12/2016 [facility] ELECTROLYTES Glucose Lvl 58 70 - 99 02/12/2016 [facility] ELECTROLYTES eGFR 26 02/12/2016 Result Comment: The [...] should be multiplied by the estimated BMI. [facility] HEMATOLOGY Eosinophils 2.8 0.0 - 4.0 02/12/2016 [facility] HEMATOLOGY Monocytes 7.2 2.0 - 12.0 02/12/2016 [facility] HEMATOLOGY Basophils 0.5 0.0 - 1.0 02/12/2016 [facility] HEMATOLOGY Segs-Bands # 6.8 1.5 - 8.1 02/12/2016 [facility] HEMATOLOGY Lymphocytes # 1.1 1.0 - 5.5 02/12/2016 [facility] HEMATOLOGY Eosinophils # 0.2 0.0 - 0.5 02/12/2016 [facility] HEMATOLOGY Monocytes # 0.6 0.0 - 0.8 02/12/2016 [facility] HEMATOLOGY Lymphocytes 12.6 20.0 - 40.0 02/12/2016 [facility] HEMATOLOGY Segs 76.9 45.0 - 75.0 02/12/2016 [facility] HEMATOLOGY MCH 32.4 27.0 - 31.0 02/12/2016 [facility] HEMATOLOGY MCHC 34.4 32.0 - 36.0 02/12/2016 [facility] HEMATOLOGY RDW 13.4 11.5 - 14.5 02/12/2016 [facility] HEMATOLOGY MPV 10.1 7.4 - 10.4 02/12/2016 [facility] HEMATOLOGY Platelet 177 133 - 450 02/12/2016 [facility] HEMATOLOGY RBC 3.55 4.70 - 6.10 02/12/2016 [facility] HEMATOLOGY WBC 8.8 3.7 - 10.4 02/12/2016 [facility] HEMATOLOGY Hgb 11.5 14.0 - 18.0 02/12/2016 [facility] HEMATOLOGY MCV 94.1 80.0 - 94.0 02/12/2016 [facility] HEMATOLOGY Hct 33.4 42.0 - 54.0 02/12/2016 [facility] BLOOD BANK RESULTS RBC product Product available (02/11/16 9:20 AM) 02/11/2016 [facility] BLOOD BANK RESULTS Antibody Scrn Negative (02/11/16 9:20 AM) 02/11/2016 [facility] BLOOD BANK RESULTS ABO/Rh A POS 02/11/2016 [facility] CHEM PANEL Magnesium Lvl 1.8 1.8 - 2.4 02/11/2016 [facility] ELECTROLYTES AGAP 12.5 10.0 - 20.0 02/11/2016 [facility] ELECTROLYTES eGFR 25 02/11/2016 Result Comment: The [...] should be multiplied by the estimated BMI. [facility] ELECTROLYTES Sodium Lvl 142 135 - 145 02/11/2016 [facility] ELECTROLYTES BUN 38 7 - 22 02/11/2016 [facility] ELECTROLYTES Creatinine Lvl 2.37 0.50 - 1.40 02/11/2016 [facility] ELECTROLYTES Calcium Lvl 9.1 8.5 - 10.5 02/11/2016 [facility] ELECTROLYTES Chloride Lvl 107 95 - 109 02/11/2016 [facility] ELECTROLYTES CO2 27 24 - 32 02/11/2016 [facility] ELECTROLYTES Potassium Lvl 4.5 3.5 - 5.1 02/11/2016 [facility] ELECTROLYTES Glucose Lvl 106 70 - 99 02/11/2016 [facility] HEMATOLOGY Eosinophils # 0.4 0.0 - 0.5 02/11/2016 [facility] HEMATOLOGY Monocytes # 0.7 0.0 - 0.8 02/11/2016 [facility] HEMATOLOGY Lymphocytes 11.6 20.0 - 40.0 02/11/2016 [facility] HEMATOLOGY Eosinophils 5.2 0.0 - 4.0 02/11/2016 [facility] HEMATOLOGY Monocytes 9.4 2.0 - 12.0 02/11/2016 [facility] HEMATOLOGY Basophils 0.6 0.0 - 1.0 02/11/2016 [facility] HEMATOLOGY Segs-Bands # 5.2 1.5 - 8.1 02/11/2016 [facility] HEMATOLOGY Lymphocytes # 0.8 1.0 - 5.5 02/11/2016 [facility] HEMATOLOGY Segs 73.2 45.0 - 75.0 02/11/2016 [facility] HEMATOLOGY Hct 37.1 42.0 - 54.0 02/11/2016 [facility] HEMATOLOGY MCV 93.9 80.0 - 94.0 02/11/2016 [facility] HEMATOLOGY MPV 8.7 7.4 - 10.4 02/11/2016 [facility] HEMATOLOGY Platelet 169 133 - 450 02/11/2016 [facility] HEMATOLOGY MCHC 33.2 32.0 - 36.0 02/11/2016 [facility] HEMATOLOGY MCH 31.2 27.0 - 31.0 02/11/2016 [facility] HEMATOLOGY RDW 13.3 11.5 - 14.5 02/11/2016 [facility] HEMATOLOGY WBC 7.1 3.7 - 10.4 02/11/2016 [facility] HEMATOLOGY Hgb 12.3 14.0 - 18.0 02/11/2016 [facility] HEMATOLOGY RBC 3.96 4.70 - 6.10 02/11/2016 [facility] HEMATOLOGY PT 15.2 12.0 - 14.7 02/11/2016 [facility] HEMATOLOGY INR 1.18 0.85 - 1.17 02/11/2016 [facility] HEMATOLOGY PTT 36.1 22.9 - 35.8 02/11/2016 [facility] BLOOD BANK RESULTS ABO/Rh A POS 02/02/2016 [facility] BLOOD BANK RESULTS Antibody Scrn Negative (02/02/16 12:25 PM) 02/02/2016 [facility] Pathology Reports No Data Provided for This [...] CHEST 2 VIEWS DATE: 02/12/2016 3:00 AM [employer] OPERATOR INDICATION: Line Placement COMPARISON: None FINDINGS: Left [...] descending thoracic aorta. 3. Basilar atelectasis. 02/12/2016 [facility] Consultation Notes No Data Provided for This Section Discharge Summaries No Data Provided for This Section History and Physicals No Data Provided for This Section Vital Signs Vital Sign Value Date Comments Source Height 182.88 cm 03/30/2016 [facility] BMI Calculated 25.82 03/30/2016 [facility] Weight 86.364 03/30/2016 [facility] Systolic (mm Hg) 156 02/12/2016 [facility] Diastolic (mm Hg) 76 02/12/2016 [facility] Systolic (mm Hg) 166 02/12/2016 [facility] Diastolic (mm Hg) 73 02/12/2016 [facility] Systolic (mm Hg) 151 02/12/2016 [facility] Diastolic (mm Hg) 66 02/12/2016 [facility] Respitory Rate 18 02/12/2016 [facility] Respitory Rate 20 02/12/2016 [facility] Respitory Rate 13 02/12/2016 [facility] [facility] Weight 86.364 02/11/2016 [facility] BMI Calculated 25.82 02/11/2016 [facility] Height 182.88 cm 02/11/2016 [facility] Encounters Location Location Details Encounter Type Encounter Number Reason For Visit Attending Provider ADM Date DC Date Status Source [facility] Inpatient [id number] Josiane Medina 02/11/2016 02/13/2016 [facility] Outpatient [id number] Josiane Medina 03/30/2016 03/31/2016 [facility] [id number] Jacoby Rodríguez 01/09/2018 01/10/2018 DAVID Contreras [facility] [place] [facility] [id number] Dawn Baum 04/26/2018 04/27/2018 [facility] [id number] DAWN BAUM MD 07/31/2018 [facility] Departed Emergency Room [id number] LILA COLLAZO MD 08/18/2018 08/18/2018 [facility] Procedures Procedure Code Date Perfomer Comments Source CT of abdomen and pelvis without contrast [id number] 08/18/2018 [facility] X-ray of chest, two views [id number] 07/31/2018 [facility] Cataract extraction [id number] [facility] DAVID Contreras Pacemaker care management [id number] [facility] Assessment and Plan Assessment and Plan Date Source Extracted from:Title: post op check Author: Josr Dale MD PHD Date: 02/12/16 Pt was seen and examined in AM. No SOB/CP/Palpitations. No AEON. Right groin area with no evidence of hematoma or swelling. Figure of 8 sutures were removed, sterile dressing was applied. 02/13/2016 [facility] Plan of Care Plan of Care Date Source Discharge Date 08/18/18 11:29pm Disposition HOME, SELF-CARE Condition at Discharge Stable Instructions/Education Provided Ascites Dyspnea Pleural Effusion Prescriptions See Medication Section Referrals JEFF OGDEN DO Address: [address] [place] [id number] Additional Instructions/Education 1. FOLLOW UP WITH YOUR DOCTOR. CALL FOR AN APPIONTENT. 2. RETURN TO ED IF SYMPTOMS WORSEN OR HAVE ANY CONCERNS. 08/18/2018 [facility] Social History Social History Date Source Social [...] Start Date Stop Date Former smoker 08/18/2018 [facility] Social History TypeResponse Alcohol Current, Type Beer, [...] Yes; Reg Smoking Cessation Counseling No 02/12/2016 [facility] Family History No Data Provided for This Section Advance Directives Order Name Results Value Date Source Advance Directives Advance Directives Directive Response Recorded Date/Time Does the patient have an advance directive? Yes 05/20/17 12:15pm If yes, is advance directive on file with [facility]? No 09/19/15 10:53pm If not on file with [facility] will patient provide a copy? Yes 05/20/17 12:15pm Do you have a Directive to Physician? Yes 08/18/18 5:36pm Do you have a Medical Power of Maintenance Of Way Superintendent? Yes 08/18/18 5:36pm Do you have an [...] rights and responsibilities? Yes 08/18/18 5:37pm 08/18/2018 [facility] Functional Status No Data Provided for This Section
[2018-11-15 16:51] LABS: B-TYPE NATRIURETIC PEPTIDE2 2621.3 pg/mL (0-100)
[2018-11-15] MEDS ORDERED: FUROSEMIDE INJ 10 MG/ML 4 ML VIAL IV NR (17:00)
[2018-11-15] MEDS ORDERED: CEFEPIME 2 GM/NS 0.9% 100 ML 100 ML IV SCH (17:00)
--- NOTE | 2018-11-15 18:45 | NUR ---
Report received. Assessment done. See interventions. IV saline locked. AV shunt to right upper arm. Thrill felt.
[2018-11-15 19:15] VITALS: BP 108/57
--- NOTE | 2018-11-15 19:36 | NUR ---
Daughter at bedside. Questions answered.
[2018-11-15 19:39] VITALS: BP 107/60
[2018-11-15 20:00] VITALS: BP 108/58
[2018-11-15 21:00] VITALS: BP 100/66
--- NOTE | 2018-11-15 21:20 | NUR ---
To radiology for CT abd/pelvis.
--- NOTE | 2018-11-15 21:25 | NUR ---
Placed on home cpap per request.
[2018-11-15 21:50] LABS: CREATINE KINASE MB 0.4 ng/mL (0-5.0)
--- NOTE | 2018-11-15 21:51 | NUR ---
Returned to room/
[2018-11-15 22:00] VITALS: BP 114/57
[2018-11-15] MEDS ORDERED: CEFEPIME HCL 2 GM/SOD CHL 0.9% 100 ML BAG IV SCH (22:00)
[2018-11-15] MEDS ORDERED: SODIUM CHLORIDE 0.9% 250ML 250 ML ONE (22:11)
[2018-11-15] MEDS: METRONIDAZOLE 500MG/NS 100ML 100 ML IV SCH (22:14)
--- NOTE | 2018-11-15 22:44 | Diagnostic Imaging Report ---
EXAM: CT Abdomen and Pelvis WITHOUT contrast INDICATION: Hyperbilirubinemia, leukocytosis COMPARISON: Abdominal CT 08/18/2018. TECHNIQUE: Abdomen and pelvis were scanned utilizing a multidetector helical scanner from the lung base to the pubic symphysis without administration of IV contrast. Absence of intravenous contrast decreases sensitivity for detection of focal lesions and vascular pathology. Coronal and sagittal reformations were obtained. Routine protocol was performed. IV CONTRAST: None ORAL CONTRAST: None COMPLICATIONS: None RADIATION DOSE: Total DLP: 654 mGy*cm Estimated effective dose: (DLP x 0.015 x size factor) mSv CTDIvol has been reviewed. It is below the limits set by the Radiation Protocol Committee (RPC). Dose modulation, iterative reconstruction, and/or weight based adjustment of the mA/kV was utilized to reduce the radiation dose to as low as reasonably achievable. FINDINGS: LINES and TUBES: None. LOWER THORAX: Partially visualized cardiac device leads in the right atrium, right ventricle, and coronary sinus. Small bilateral pleural effusions and bibasilar atelectasis. Mild cardiomegaly. HEPATOBILIARY: No focal hepatic lesions. No biliary ductal dilation. GALLBLADDER: No radio-opaque stones or sludge. No wall thickening. SPLEEN: No splenomegaly. Calcified splenic granulomata. PANCREAS: No focal masses or ductal dilatation. ADRENALS: No adrenal nodules KIDNEYS/URETERS: Mild renal parenchymal volume loss. Stable bilateral perinephric fat stranding, may be related to senescence or renal insufficiency. No hydronephrosis. Stable left renal lower pole cyst. No solid mass lesions. No stones. GI TRACT: No abnormal distention, wall thickening, or evidence of bowel obstruction. Appendix is not clearly identified. There is however no fat stranding or adenopathy in the right lower quadrant to suggest appendicitis. PELVIC ORGANS/BLADDER: Mild circumferential bladder wall thickening and perivesicular fat stranding. Streak artifact from the bilateral hip arthroplasty metal limits intrapelvic evaluation. LYMPH NODES: No lymphadenopathy. VESSELS: Aortobiiliac stent graft appears intact however patency cannot be evaluated in the absence of IV contrast. Infrarenal abdominal aorta aneurysm measures up to 4.4 cm and tapers abruptly at the superior margin of the abdominal aorta stent graft. PERITONEUM / RETROPERITONEUM: Stable small volume ascites. No free air. BONES: No acute osseous abnormality. Healed left lateral rib 8 fracture. Partially visualized bilateral total hip arthroplasty hardware intact. Left L4 and L5 laminectomies and posterior right and screw fixation of L2 and L3 and anterior screw fixation and interposed graft in L3-S1 vertebral bodies. SOFT TISSUES: Unremarkable. IMPRESSION: 1. Findings suspicious for urinary bladder cystitis. Correlate with urinalysis. 2. Slight decrease in small volume ascites and bilateral small pleural effusions compared to 08/18/2018. 3. Stable 4.7 cm infrarenal abdominal aortic aneurysm above the level of the aorta stent graft Signed by: Reginald Valdovinos DO on 11/15/2018 10:41 PM
--- NOTE | 2018-11-15 22:55 | NUR ---
Call to Dr. Mark De La Cruz re: renal consult for AM and IV fluids.
[2018-11-15 23:00] VITALS: BP 110/57
--- NOTE | 2018-11-15 23:05 | NUR ---
Call to Dr. Billy's ans service. Advised of consult.
--- NOTE | 2018-11-15 23:15 | NUR ---
Dr. Turcios returned call. Advise of renal consult.
[2018-11-15 23:53] LABS: ANION GAP 14.9 mmol/L (8-16); CALCIUM 9.1 mg/dL (8.4-10.2); CREATININE, SERUM 3.08 mg/dL (0.72-1.25); POTASSIUM 3.9 mmol/L (3.5-5.1)
--- NOTE | 2018-11-15 23:57 | Consultation ---
DATE OF CONSULTATION: 11/15/2018 Cardiology consultation REQUESTING PHYSICIAN: Dr. Hanna. REASON FOR CONSULTATION: Evaluate and management of cardiac condition. HISTORY OF PRESENT ILLNESS: This is an 83-year-old man with history of end-stage renal disease on hemodialysis, coronary artery disease with 100% RCA, 99% LAD, and 90% proximal left circumflex disease, moderate to severe tricuspid regurgitation with moderate pulmonary hypertension, BiV ICD, chronic systolic heart failure with recovered ejection fraction, right carotid artery stenosis, atrial fibrillation, hyperlipidemia, and hypertension, who was sent to the ER from Cardiology Clinic due to hypoxia, shortness of breath, and chills. The patient reports he was feeling well until this morning when he was more fatigued than usual. He presented to the Cardiology Clinic for ECP. On arrival to the office, he reported fever and chills and was found to be hypoxic to 67 degrees. He was subsequently sent to the ER for further evaluation. The patient denies any chest pain, palpitations, edema, orthopnea, or PND. However, he does know he has had sick contacts in his daughter and son-in-law and began having rhinorrhea yesterday. He otherwise is without complaints. REVIEW OF SYSTEMS: Negative except as per HPI. PAST MEDICAL HISTORY: As above. PAST SURGICAL HISTORY: 1. Cholecystectomy. 2. Cataract x2. 3. Toe surgery. ALLERGIES: PLEASE SEE EMR. MEDICATIONS: Please see medication list. SOCIAL HISTORY: Remote tobacco. No alcohol. FAMILY HISTORY: Noncontributory to current illness. PHYSICAL EXAMINATION: VITAL SIGNS: Temperature 99.1 degrees, pulse 74, respiratory rate 22, blood pressure 110/64, and oxygen saturation 100% on room air. GENERAL: Elderly man, in no acute distress. Awake and alert. HEENT: Normocephalic and atraumatic. Pupils equal. No scleral icterus. NECK: Supple. No thyromegaly or cervical lymphadenopathy. No carotid bruits. LUNGS: Clear to auscultation bilaterally. No wheezes or crackles. CARDIOVASCULAR: Normal rate, regular rhythm. Systolic murmur. Normal S1, S2. ABDOMEN: Soft and nontender. EXTREMITIES: 1+ pitting edema. NEUROLOGIC: Nonfocal exam. LABORATORY DATA: WBC 18.93, hemoglobin 12.3, hematocrit 38.2, and platelets 127. Sodium 135, potassium 4.4, chloride 93, CO2 of 29, BUN 21 and creatinine 3.02. Lactic acid is 35.8. BNP 2621. Troponin 0.024. Chest x-ray, bibasilar atelectasis. IMPRESSION: 1. Sepsis, unclear source. 2. Coronary artery disease. 3. Chronic systolic heart failure, status post BiV ICD with recovered ejection fraction. 4. Right carotid artery stenosis. 5. Atrial fibrillation. 6. Hypertension. 7. Hyperlipidemia. 8. End-stage renal disease, on hemodialysis. RECOMMENDATIONS: Continue home cardiac medications. The patient's blood pressure is well controlled. We will monitor closely. We will discuss additional ultrafiltration with Nephrology evaluation of infectious etiologies for patient's symptoms per primary. Monitor the patient closely on telemetry while admitted. Helen Berumen MD ABS/MODL /[id number]
[2018-11-16] VITALS (23 sets, daily range): BP systolic 88–153; BP diastolic 50–70
[2018-11-16 05:38] LABS: CREATINE KINASE MB 0.5 ng/mL (0-5.0)
[2018-11-16 05:54] LABS: ANION GAP 11.9 mmol/L (8-16); CALCIUM 9.1 mg/dL (8.4-10.2); CREATININE, SERUM 3.24 mg/dL (0.72-1.25); POTASSIUM 3.9 mmol/L (3.5-5.1)
[2018-11-16] MEDS: METRONIDAZOLE 500MG/NS 100ML 100 ML IV SCH ×3 (06:05→22:24)
--- NOTE | 2018-11-16 11:50 | NUR ---
[facility] dialysis notified of patients need for dialysis
[2018-11-16] MEDS ORDERED: SODIUM CHLORIDE 0.9% 1000ML 2,000 ML ONE (12:53)
[2018-11-16] MEDS ORDERED: ALBUMIN 25% 12.5GM 0.25 GM/ML BTL IV PRN (13:00)
[2018-11-16] MEDS ORDERED: SODIUM CHLORIDE 0.9% 1000ML 2,000 ML IV PRN (13:00)
[2018-11-16] MEDS ORDERED: SODIUM CHLORIDE 0.9% 250ML 500 ML IV PRN (13:00)
[2018-11-16] MEDS ORDERED: MANNITOL 25% 12.5GM/50 ML VIAL IV PRN (13:00)
[2018-11-16 14:55] LABS: CREATINE KINASE MB 0.7 ng/mL (0-5.0)
--- NOTE | 2018-11-16 16:11 | Progress Note ---
DATE: 11/16/2018 Cardiology Progress Note SUBJECTIVE: The patient denies chest pain. He is complaining of shortness of breath. OBJECTIVE: VITAL SIGNS: Temperature 99.2 degrees, pulse 73, respiratory rate 25, blood pressure 106/61, oxygen saturation 98% on BiPAP. GENERAL: Awake, alert, in no acute distress. LUNGS: Clear to auscultation bilaterally. No wheezes or crackles. CARDIOVASCULAR: Normal rate, regular rhythm. Systolic murmur. Normal S1, S2. ABDOMEN: Soft, nontender. EXTREMITIES: 1+ pitting edema. CARDIAC MEDICATIONS: None. LABORATORY DATA: Sodium 129, potassium 3.9, chloride 93, CO2 of 28, BUN 27, creatinine 3.24, troponin 0.064. TELEMETRY: Normal sinus rhythm with PVCs. IMPRESSION: 1. Sepsis of unclear etiology. 2. Coronary artery disease. 3. Chronic systolic heart failure status post BiV ICD with recovered ejection fraction. 4. Right carotid artery stenosis. 5. Atrial fibrillation. 6. Hypertension. 7. Hyperlipidemia. 8. End-stage renal disease, on hemodialysis. RECOMMENDATIONS: Resume home atorvastatin, would restart anticoagulation if no procedures are planned. The patient's blood pressure is controlled. Hold metoprolol and isosorbide at this time. Antibiotics per primary service. Request further ultrafiltration from Nephrology. Monitor patient closely on telemetry. Thank you for this consult. We will continue to follow. Helen Berumen MD ABS/MODL /[id number]
--- NOTE | 2018-11-16 17:16 | NUR ---
Nutrition Intervention Note RD Recommendation(s) for Physician: -Rec changing diet to renal diet -Rec Nepro BID to increase protein-calorie intake -Rec appetite stimulant if medically appropriate Plan of Care: RD following, monitoring for tolerance and adequacy, ONS rec Nutrition reason for involvement: Nutrition risk trigger MST, Diagnosis RD Assessment 83yo M, who was admitted for SOB and chills. Pt with hx of ESRD on HD. Visited pt in the room. Pt reported poor appetite for a while. Pt stated I havent been hungry because of dialysis. Pt denied any nausea or vomiting. LBM 11/15. Pt denied any chewing or swallowing difficulty. Reported UBW ~185lbs. RD rec Nepro to supplement PO intake and pt was agreeable. Will continue to monitor and follow. Principal Problems/Diagnoses: CHF, PNA PMH: end-stage renal disease on hemodialysis, coronary artery disease with 100% RCA, 99% LAD, and 90% proximal left circumflex disease, moderate to severe tricuspid regurgitation with moderate pulmonary hypertension, BiV ICD, chronic systolic heart failure with recovered ejection fraction, right carotid artery stenosis, atrial fibrillation, hyperlipidemia, and hypertension GI: abdomen soft, round, flatus + Skin: intact Labs: (11/16) Na 129 L, BUN 27 H, Creatinine 3.24 H Meds: reviewed Ht: 75in Wt: 185lb BMI: 23.1kg/m2 IBW: 196lb +/- 10% Malnutrition Evaluation (11/16/2018) The patient does not meet criteria for a specified degree of malnutrition at this time. Will re-evaluate at follow-up as appropriate. Nutrition Prescription (Diet Order): cardiac diet Estimated Nutritional Needs: Calories: 2520 2940kcal (30-35kcal/kg/d) Weight used : CBW Protein: 84-126g(1-1.5g/kg/d) Weight used: CBW Diet Adequacy: Not meeting calorie needs, Not meeting protein needs Diet Education Needs Assessment: Diet education indicated, but patient not appropriate for education at this time. Nutrition Care Level: low Nutrition Diagnosis: Inadequate energy intake related to chronic illnesses as evidenced by pt reported poor appetite going on for a while. Goal: Patient will meet 75-100% of estimated needs by follow up Progress: N/A Interventions: Modified diet, Commercial beverage Monitoring/Evaluation: Total energy intake, Total protein intake, Modified diet, Liquid supplement, and Weight change Signed: Beverley Nunes MS, RD, LD
[2018-11-16] MEDS: CEFEPIME 2 GM/NS 0.9% 100 ML 100 ML IV SCH (19:12)
[2018-11-16] MEDS: VANCOMYCIN 1GM/NS 250 ML 250 ML IV SCH (19:39)
--- NOTE | 2018-11-16 22:48 | Consultation ---
DATE OF CONSULTATION: 11/16/2018 HISTORY OF PRESENT ILLNESS: 83-year-old gentleman known to our Nephrology service, has underlying end-stage renal disease and dialyzes at [facility]. Has prior history of congestive heart failure, hypertension, hypertensive heart disease, and hypertensive kidney disease leading to end-stage renal disease. He is admitted with pneumonia and congestive heart failure, history of prior tobacco addiction, history of prior pancreatitis, common bile duct stone, history of sepsis with Klebsiella several years ago. He had an ERCP with sphincterotomy and stone extraction in 2016. Renal consult for management of kidney failure. He is due for dialysis today. His lab show white count 18.9 and hemoglobin 12.3. Sodium 129, potassium 3.9, bicarb 28, BUN 27, and creatinine 3.2. Troponin I 0.085. ALLERGIES: THE PATIENT IS ALLERGIC TO LISINOPRIL. CURRENT MEDICATIONS: The patient was placed on cefepime and metronidazole. He was on normal saline, has been discontinued. He is on Tylenol p.r.n. Currently, the patient is awake and alert. He is complaining of chills. Has cough. Denies fever. Denies abdominal pain, headache, or diarrhea. LABORATORY DATA: Workup also included CT scan shows stable 4.7 cm infrarenal abdominal aortic aneurysm. There is small volume ascites and bilateral small pleural effusions. Please see official report for details. Chest x-ray is relatively clear. I could not appreciate any infiltrates. He does have AICD pacemaker on the left side. PHYSICAL EXAMINATION: GENERAL: Awake, alert, lying supine, in no apparent distress with a blood pressure 106/51, pulse rate 73, afebrile, and oxygen saturation 98% on room air. HEAD AND NECK: Cornea clear. Oral mucosa dry. LUNGS: Relatively clear. Occasional rales, left base. HEART: S1 and S2 audible. ABDOMEN: Otherwise soft and nontender. EXTREMITIES: Lower extremity examination, no edema. IMPRESSION AND PLAN: Possible pneumonia, underlying end-stage renal disease, hypertension, infrarenal abdominal aortic aneurysm, AICD pacer, and multiple comorbidities. I will arrange for dialysis. Blood pressure reasonably controlled. Please dose all antibiotics for GFR 10 or less. Please see orders. MD KRIS Yi/PAULINO /[id number]
--- NOTE | 2018-11-16 23:54 | NUR ---
Report received. Assumed care. No changes in assessment.
[2018-11-17] VITALS (16 sets, daily range): BP systolic 100–145; BP diastolic 49–90
[2018-11-17 05:27] LABS: BASOPHILS % 0.3 % (0.0-1.0); EOSINOPHILS # (AUTO) 0.2 (0.0-0.4); EOSINOPHILS % 2.2 % (0.0-6.0); HEMATOCRIT 32.1 % (38.2-49.6); HEMOGLOBIN 10.2 g/dL (14.0-18.0); LYMPHOCYTES # (AUTO) 0.6 (1.0-3.2); MEAN CORPUSCULAR HEMOGLOBIN 29.7 pg (28-32); MEAN CORPUSCULAR HGB CONC 31.8 g/dL (31-35); MEAN CORPUSCULAR VOLUME 93.6 fL (81-99); MONOCYTES # (AUTO) 0.8 (0.2-0.8); MONOCYTES % 10.9 % (4.4-11.3); NEUTROPHILS # (AUTO) 5.6 (2.1-6.9); NEUTROPHILS % 77.9 % (38.7-80.0); PLATELET COUNT 114 x10e3/uL (140-360); RED BLOOD COUNT 3.43 x10e6/uL (4.3-5.7); RED CELL DISTRIBUTION WIDTH 18.5 % (11.7-14.4)
[2018-11-17] MEDS: METRONIDAZOLE 500MG/NS 100ML 100 ML IV SCH ×3 (05:40→21:52)
[2018-11-17 05:45] LABS: ANION GAP 13.9 mmol/L (8-16); CREATININE, SERUM 2.39 mg/dL (0.72-1.25); POTASSIUM 3.9 mmol/L (3.5-5.1)
--- NOTE | 2018-11-17 07:00 | NUR ---
Initial visit: [facility] provided pastoral presence, hospitality, and supportive listening. Informed pt of the scope of [employer], availability and how to reach mat tester, if needed. ARIAS KENNY [facility] Spiritual Care Department O: [phone] Pager: [phone] ([phone] calling from)
[2018-11-17 07:55] LABS: LYMPHOCYTES % (MANUAL) 7 % (19-48); MONOCYTES % (MANUAL) 9 % (3.4-9.0); NEUTROPHILS % (MANUAL) 84 % (40-74)
[2018-11-17 07:56] LABS: PLATELET ESTIMATE MODERATELY DECREASED; RBC MORPHOLOGY COMMENT NORMAL
--- NOTE | 2018-11-17 08:27 | NUR ---
wound care consult ordered as patient has right second toe a thick scab noted. left lateral last toe also has a scab. pt was unaware of wounds until i asked about them. pt stated he has very little sensation to feet. rle also with reddness and increased edema to extremity compared to LLE. will notify .
--- NOTE | 2018-11-17 09:39 | NUR ---
dr. bernard at bedside updated and assessed patient right eye red scelera and rle.
--- NOTE | 2018-11-17 10:48 | NUR ---
nursing report given to romain pugh for med surg 2 room 208
--- NOTE | 2018-11-17 10:53 | Diagnostic Imaging Report ---
Chest radiographs, 2 views Clinical indication: Shortness of breath Comparison: 11/15/2018, 07/31/2018 Findings: The heart is within normal limits of size. The mediastinal and hilar contours are unremarkable. Left subclavian ICD is in place. There is right midlung zone atelectasis and left basilar atelectasis. No focal consolidation. Trace bilateral pleural effusions are present. There are no acute osseous antibiotics Impression: Scattered atelectasis and trace bilateral pleural effusions. Signed by: Steven Guzman MD on 11/17/2018 10:50 AM
--- NOTE | 2018-11-17 11:14 | Progress Note ---
DATE: 11/17/2018 Cardiology Progress Note SUBJECTIVE: The patient denies chest pain or shortness of breath. OBJECTIVE: VITAL SIGNS: Temperature 98.1 degrees, pulse 73, respiratory rate 23, blood pressure 110/62, oxygen saturation 96% on room air. GENERAL: Awake, alert, in no acute distress. LUNGS: Clear to auscultation bilaterally. No wheezes or crackles. CARDIOVASCULAR: Normal rate, regular rhythm. Systolic murmur. Normal S1, S2. ABDOMEN: Soft, nontender. EXTREMITIES: 1+ pitting edema and erythema of the right lower extremity. CARDIAC MEDICATIONS: None. LABORATORY DATA: WBC 7.13, hemoglobin 10.2, hematocrit 32.1, platelets 114. Sodium 137, potassium 3.9, chloride 100, CO2 of 27, BUN 21, and creatinine 2.39. TELEMETRY: V paced. IMPRESSION: 1. Sepsis, unclear etiology. 2. Coronary artery disease. 3. Chronic systolic heart failure, status post BiV ICD with recovered ejection fraction. 4. Right carotid artery stenosis. 5. Atrial fibrillation. 6. Hypertension. 7. Hyperlipidemia. 8. End-stage renal disease, on hemodialysis. RECOMMENDATIONS: Continue current cardiac medications. If no procedures are planned, recommend resuming Eliquis. The patient's blood pressure is acceptable off all antihypertensive therapy. We will monitor closely. Antibiotics per primary service. The patient would likely benefit from further ultrafiltration by Nephrology. Thank you for this consult. We will continue to follow. Helen Berumen MD ABS/MODL /[id number]
--- NOTE | 2018-11-17 11:14 | NUR ---
Recvd patient as transfer from ICU, alert with no distress, patient resting in bed, call light in reach, encouraged him to use call light, keep monitoring
[2018-11-17] MEDS: CEFEPIME 2 GM/NS 0.9% 100 ML 100 ML IV SCH (13:55)
[2018-11-17] MEDS: VANCOMYCIN 1GM/NS 250 ML 250 ML IV SCH (14:45)
[2018-11-17] MEDS ORDERED: SODIUM CHLORIDE 0.9% 250ML 250 ML ONE (15:06)
--- NOTE | 2018-11-17 16:52 | NUR ---
WOUND CARE NURSE INITIAL CONSULTATION. 83 YEAR OLD MALE ADMITTED TO [facility]. WITH DX OF CHF AND PNA. HEAD TO TOE SKIN ASSESSMENT PERFORMED TODAY. PT PRESENTS WITH WANGNERS I DIABETIC FOOT ULCERS TO RIGHT PLANTAR TOE, 0.2X0.2X01CM. AND LEFT 5TH TOE, 0.2X0.2X0.1CM. PT STATES "I HAVE NO FEELINGS ON MY FEET SO I HAVE NO HAD IDEA HOW LONG THEY HAVE BEEN THERE. NO S/S OF INFECTION PRESENT. THERE ARE NO OTHER AREAS OF CONCERN NOTED AT THIS TIME. LABS: WBC: 7.13 ALB: 3.5 BNP: 2621.3 BLOOD AND URINE CX RESULTS ARE PENDING. RECOMMENDATIONS: APPLY BACTROBAN TO RIGHT PLANTAR TOE AND LEFT 5TH TOE BID AND COVER WITH 4X4 GAUZE. PROVIDE PT WITH ALTERNATING LOW AIR LOSS MATTRESS, BILATERAL HEEL PROTECTORS AND PILLOW SUSPENSIONS. TURN PT EVERY TWO HOURS AND PRN. THANKS FOR THIS CONSULTATION. Addendum: 11/17/18 at 1701 by Umu Acosta RN Amended: Links added.
[2018-11-18] VITALS (9 sets, daily range): BP systolic 105–121; BP diastolic 56–81
[2018-11-18] MEDS: METRONIDAZOLE 500MG/NS 100ML 100 ML IV SCH ×3 (05:39→21:30)
--- NOTE | 2018-11-18 07:06 | NUR ---
RECEIVED PATIENT AWAKE RESTING IN BED NO SIGNS OF DISTRESS. BED LOW, WHEELS LOCKED, SIDE RAILS X2. CALL LIGHT IN REACH WILL CONTINUE TO MONITOR PATIENT.
[2018-11-18] MEDS ORDERED: SODIUM CHLORIDE 0.9% 1000ML 2,000 ML ONE (08:25)
[2018-11-18] MEDS: MUPIROCIN 2% OINT 22 GM TUBE TOP SCH (08:40)
[2018-11-18] MEDS ORDERED: ALBUMIN 25% 12.5GM 0.25 GM/ML BTL IV NR (09:30)
[2018-11-18] MEDS ORDERED: ALBUMIN 25% 25GM 100ML 0.25 GM/ML BTL IV ONE (09:30)
[2018-11-18] MEDS ORDERED: APIXABAN 5 MG TABLET PO SCH (09:45)
--- NOTE | 2018-11-18 10:51 | NUR ---
PATIENT A/O X3, EVEN RESPIRATIONS ON RA. NO PAIN AT THIS TIME. BOWEL SOUNDS X4. TELE #6 PACED. LEFT FA 20 GAUGE IV SL. RIGHT UA FISTULA. PATIENT RECEIVING DIALYSIS AT THIS TIME. FOOT ULCER TO RIGHT PLANTAR TOE AND LEFT 5TH TOE, BACTROBAN BID. PATIENT VOIDS IN URINAL, UP WITH ASSISTANCE. CALL LIGHT IN REACH WILL CONTINUE TO MONITOR PATIENT.
--- NOTE | 2018-11-18 12:51 | Progress Note ---
DATE: Cardiology Progress Note SUBJECTIVE: The patient is without any complaints this morning. He states that he feels well. He is undergoing dialysis. Denies any shortness of breath or chest pain. OBJECTIVE: VITAL SIGNS: Temperature 97.2, pulse 75, respiratory rate 18, blood pressure 118/67, and oxygen saturation 98% on room air. GENERAL: Alert and oriented x3. Resting comfortably in bed. No acute distress. NECK: Supple. No JVD noted. LUNGS: Diminished breath sounds anterior and posterior lower lobes, otherwise clear to auscultation. CARDIOVASCULAR: Normal rate and rhythm. Systolic murmur present. Normal S1 and S2. ABDOMEN: Soft and nontender. LOWER EXTREMITY: Right lower extremity 2+ pitting edema with erythema noted. CARDIOVASCULAR MEDICATIONS: None at this time. LABORATORY DATA: WBC 7.13, hemoglobin 10.2, hematocrit 31.1, and platelets 114. Sodium 137, potassium 3.9 BUN 21, and creatinine 2.39. TELEMETRY: V-paced rhythm. IMPRESSION: 1. Sepsis with unclear etiology. 2. Coronary artery disease. 3. Systolic heart failure, status post IV ICD. 4. Right carotid artery stenosis. 5. Atrial fibrillation. 6. Hypertension. 7. Hyperlipidemia. 8. End-stage renal disease, on hemodialysis. RECOMMENDATIONS: Cardiac medications on hold at this time. Continue to monitor blood pressure closely while off all antihypertensives. No procedures are planned, so we will go ahead and resume Eliquis at this time. We will continue to monitor the patient closely. Antimicrobial therapy per primary team. Continue ultrafiltration per Nephrology guidelines. Thank you for this consultation and allowing us to participate in this patient's care. Dictated by Thalia Hayes NP MD JAZMIN WilsonV/PAULINO /[id number]
[2018-11-18] MEDS: APIXABAN 5 MG TABLET PO SCH ×2 (12:56→17:42)
[2018-11-18] MEDS: CEFEPIME 2 GM/NS 0.9% 100 ML 100 ML IV SCH (14:27)
[2018-11-18] MEDS: VANCOMYCIN 1GM/NS 250 ML 250 ML IV SCH (15:09)
[2018-11-19] VITALS (8 sets, daily range): BP systolic 111–129; BP diastolic 52–78
[2018-11-19] MEDS: METRONIDAZOLE 500MG/NS 100ML 100 ML IV SCH (05:32)
[2018-11-19 06:18] LABS: BASOPHILS % 0.5 % (0.0-1.0); EOSINOPHILS # (AUTO) 0.3 (0.0-0.4); EOSINOPHILS % 6.2 % (0.0-6.0); HEMATOCRIT 33.7 % (38.2-49.6); HEMOGLOBIN 10.7 g/dL (14.0-18.0); LYMPHOCYTES # (AUTO) 0.7 (1.0-3.2); MEAN CORPUSCULAR HEMOGLOBIN 29.6 pg (28-32); MEAN CORPUSCULAR HGB CONC 31.8 g/dL (31-35); MEAN CORPUSCULAR VOLUME 93.1 fL (81-99); MONOCYTES # (AUTO) 0.5 (0.2-0.8); MONOCYTES % 11.7 % (4.4-11.3); NEUTROPHILS # (AUTO) 2.8 (2.1-6.9); NEUTROPHILS % 63.9 % (38.7-80.0); PLATELET COUNT 116 x10e3/uL (140-360); RED BLOOD COUNT 3.62 x10e6/uL (4.3-5.7); RED CELL DISTRIBUTION WIDTH 18.1 % (11.7-14.4)
--- NOTE | 2018-11-19 06:55 | Diagnostic Imaging Report ---
EXAMINATION: CHEST SINGLE (PORTABLE) INDICATION: Pneumonia COMPARISON: Chest radiograph 11/17/2018 FINDINGS: AP view TUBES and LINES: Stable left chest wall cardiac device with 4 leads, one the right atrium, 2 in the right ventricle and one in the coronary sinus. LUNGS: Slightly prominent pulmonary suture markings. Central pulmonary vascular prominence. Persistent left basilar opacity which silhouettes left hemidiaphragm PLEURA: No pleural effusion or pneumothorax. HEART AND MEDIASTINUM: Cardiac size is mildly enlarged. BONES AND SOFT TISSUES: No acute osseous lesion. Soft tissues are unremarkable. UPPER ABDOMEN: No free air under the diaphragm. IMPRESSION: Mild cardiomegaly and mild pulmonary interstitial edema with trace bilateral pleural effusions. Persistent left basilar opacity which silhouettes left hemidiaphragm may be due to atelectasis, pleural effusion, or possibly pneumonia. Signed by: Reginald Valdovinos DO on 11/19/2018 6:51 AM
--- NOTE | 2018-11-19 07:13 | NUR ---
RECEIVED PATIENT ASLEEP IN BED NO S/S OF DISTRESS. BED LOW, WHEELS LOCKED, SIDE RAILS X2. CALL LIGHT IN REACH WILL CONTINUE TO MONITOR PATIENT.
[2018-11-19] MEDS: APIXABAN 5 MG TABLET PO SCH ×2 (08:24→17:04)
[2018-11-19] MEDS: MUPIROCIN 2% OINT 22 GM TUBE TOP SCH (08:24)
--- NOTE | 2018-11-19 10:09 | NUR ---
PATIENT A/O X3, EVEN RESPIRATIONS ON RA. NO PAIN AT THIS TIME. BOWEL SOUNDS X4. TELE #6 PACED. LEFT FA 20 GAUGE IV SL. RIGHT UA FISTULA. FOOT ULCER TO RIGHT PLANTAR TOE AND LEFT 5TH TOE, BACTROBAN APPLIED. PATIENT VOIDS IN URINAL, UP WITH ASSISTANCE. CALL LIGHT IN REACH WILL CONTINUE TO MONITOR PATIENT.
[2018-11-19] MEDS: MEROPENEM 1GM 100 ML IV SCH ×2 (11:11→22:32)
--- NOTE | 2018-11-19 11:14 | Progress Note ---
DATE: Cardiology Progress Note SUBJECTIVE: The patient is without any new complaints this morning. OBJECTIVE: VITAL SIGNS: Temperature 96.8, pulse 73, respiratory rate 16, blood pressure 120/55, oxygen saturation 100% on room air. GENERAL: Alert and oriented x3. Resting comfortably in bed, drowsy this morning. NECK: Supple. No JVD noted. LUNGS: Diminished breath sounds anterior, posterior lower lobes, otherwise clear to auscultation. CARDIOVASCULAR: Normal rate and rhythm. Systolic murmur present. Normal S1, S2. ABDOMEN: Soft, nontender. EXTREMITIES: Lower extremity, right lower extremity with 2+ edema. No rash or erythema noted. CARDIOVASCULAR MEDICATIONS: Eliquis 5 mg p.o. b.i.d. LABORATORY DATA: WBC 4.35, hemoglobin 10.7, hematocrit 33.7, platelets 116. Urine culture from 11/15/2018, with gram-negative rods noted. IMPRESSION: 1. Sepsis with unclear etiology. 2. Urinary tract infection. 3. Coronary artery disease. 4. Systolic heart failure, status post biventricular implantable cardioverter defibrillator. 5. Right carotid artery stenosis. 6. Atrial fibrillation. 7. Hypertension. 8. Hyperlipidemia. 9. End-stage renal disease, on hemodialysis. RECOMMENDATION: Antihypertensives on hold at this time. Continue to monitor blood pressure closely. Continue anticoagulation with Eliquis for CVA prophylaxis. Continue to monitor this patient very closely. Primary team managing antimicrobial therapy. Continue ultrafiltration per Nephrology recommendations. We will continue to monitor this patient very closely. Dictated by Thalia Hayes NP MD JAZMIN WilsonV/PAULINO /[id number]
--- NOTE | 2018-11-19 11:18 | NUR ---
BOOGIE met with patient and discussed order for LTAC. He agreed to plan and chose [facility] so that he can keep his same physicians. He stated he is texting his daughter to let her know. BOOGIE left voice mail with Vannessamarcel Jones, liaison with [facility] [phone] Faxing clinical now.
--- NOTE | 2018-11-19 11:36 | NUR ---
BOOGIE spoke to Vannessa Jones, liaison with [facility]. Notified her of transfer order and that pt is Medicare. She stated she will notify when pt is accepted.
--- NOTE | 2018-11-19 11:51 | NUR ---
VANCOMYCIN TROUGH 20.1. NOTIFIED DR. RAYMOND. ORDER TO HOLD TODAY'S 1500 DOSE AND REPEAT TROUGH TOMORROW.
--- NOTE | 2018-11-19 13:19 | NUR ---
Clinicals were faxed earlier. MOT initiated and placed with packet on nurses station. Awaiting acceptance. [address] [facility] [place] [place] [address] fax: [phone] Liaison: Vannessa Jones [phone]
--- NOTE | 2018-11-19 13:34 | NUR ---
NOTIFIED DR. RAYMOND OF [facility] TO E. ORDER FOR VENOUS DOPPLER TO RULE OUT DVT. NEW ORDERS IMPLEMENTED.
[2018-11-19] MEDS: VANCOMYCIN 1GM/NS 250 ML 250 ML IV SCH (13:49)
[2018-11-19] MEDS: CEFEPIME 2 GM/NS 0.9% 100 ML 100 ML IV SCH (14:01)
--- NOTE | 2018-11-19 14:25 | NUR ---
Vannessa dougherty/ [facility] stated she called pt and he did not want to stay 2 weeks. CM went to see pt and explained he needed to stay for longer period of time due to need for IV antibiotics. He agreed. CM called Vannessa at pt bedside and pt and CM did notify her yes he would go. He said he had no further questions at this time. Pt tried to call his daughter for CM to talk to, but she did not answer telephone. Still awaiting acceptance to [facility]
[2018-11-20] VITALS (7 sets, daily range): BP systolic 114–121; BP diastolic 57–75
[2018-11-20] MEDS: APIXABAN 5 MG TABLET PO SCH (09:29)
[2018-11-20] MEDS: MUPIROCIN 2% OINT 22 GM TUBE TOP SCH (09:29)
--- NOTE | 2018-11-20 10:00 | NUR ---
Received MOT from Aliza Gatica with [facility] [address] [place] [address] for report Rm [id number] Dr[address] De La Cruz to attend TABATHA GoddardO Completed MOT placed with pt's packet at nurses station DORA Herman was notified of bed assignment.
[2018-11-20] MEDS: MEROPENEM 1GM 100 ML IV SCH (13:24)
--- NOTE | 2018-12-14 18:40 | Discharge Summary ---
CHIEF COMPLAINT: Two-day history of progressive shortness of breath and chest congestion. FINAL DIAGNOSES: 1. Pneumonia. 2. Sepsis with urinary tract infection. 3. Coronary artery disease. DISPOSITION: [facility]. HOSPITAL COURSE: An 83-year-old male with known history of end-stage renal disease, coronary artery disease, chronic systolic congestive heart failure, GERD, brought to the ER with a 2-3 days history of progressive shortness of breath, chest congestion, frequent cough with production, also had fever or chills. No nausea, vomiting, or diarrhea. Underwent workup and evaluation in the emergency room, admission was medical treatment for long progressive chest congestion, shortness of breath, cough, pneumonia, elevated lactic acid level, pulmonary edema. With admission, we will be addressing panculture and then we will start him on IV antibiotics, requesting a Nephrology follow and Cardiology follow. With admission, the patient did undergo Cardiology evaluation by Dr. Berumen, regarding the patient's congestive heart failure history in his presentation. With review of evaluation, impression was sepsis unclear source, coronary artery disease, chronic systolic heart failure, status post defibrillator with recovered ejection fraction, right carotid artery stenosis, atrial fib, hypertension, hyperlipidemia, end-stage renal disease dialysis dependent. Recommend continuing current cardiac medication. Current blood pressure is well controlled. The Nephrology dialysis issues were under the management of Dr. Billy and following his evaluation on the patient, impression was made of possible pneumonia, underlying end-stage renal disease, hypertension, infrarenal abdominal aortic aneurysm, history of defibrillator pacemaker, multiple comorbidities. We will be initiating dialysis procedures. From the ER, the patient was placed in ICU, was on cardiac diet. Once there, he was having some issues with minimal shortness of breath. He is on vancomycin, cefepime, IV fluids. Laboratory studies were being monitored closely. Noted to have initial issue with leukocytosis. Again, dialysis procedures with Dr. Billy. BP issues are being addressed as well. Medications have been redefined. He was also noted to have slightly low hemoglobin. Lower extremities especially right side showing issues of cellulitis. H and H are continued to monitor closely. The patient has responded well to the antibiotic protocols, noted to be feeling better overall, was having no new complaints. BP was becoming better control. Chest x-rays are being reviewed. The patient will be requiring further management on this admission. Monitor the medications in weekend. The Case Management was brought in to assist at his request. The patient was able to be transferred to LTAC facility. IMAGING: Chest x-ray shows bibasilar atelectasis. Abdomen and pelvis CT shows suspicious urinary bladder cystitis urinalysis. Slight increase in small volume ascites and bilateral small portal effusions. Stable 4.7 cm infrarenal abdominal aortic aneurysm above the level of the aortic stent graft. Dictated by LENNOX Jama Kamlesh De La Cruz MD CC/MODL /[id number]
--- NOTE | 2018-12-14 19:30 | Discharge Summary ---
ADDENDUM: Followup chest x-ray on the patient compared to previous studies reveals mild cardiomegaly and mild pulmonary interstitial edema with trace bilateral pleural effusions. Persistent left basilar opacity with silhouettes, which silhouettes left hemidiaphragm may be due to atelectasis, pleural effusion, or possible pneumonia. Final study was lower extremity venous Doppler bilateral, finding shows no evidence of DVT. Cultures, blood no growth. Urine reveals alcaligenes faecalis. LABORATORY STUDIES: Begins with a CBC showing initial white cell count of 18,900. Repeat CBC shows a decline in the white cell count to a final study of 4300. Initial H and H were 12.3 and 38.2. Followup H and H fell to 10.2 and 32.1, final study 10.7 and 32.7. Platelets were only 127,000 as low as 114,000, final study 116. Urinalysis shows 3+ protein, 0-5 wbc's per high-power field, many bacteria. Chemistries reveal initial panel of electrolytes stable. Kidney functions; BUN 21, creatinine 3.02, glucose 106. Lactic acid elevated at 35.8. BNP was 2621.3. Further chemistries were showing a slightly decline of the sodium down to 129, followup study was normal at 137. Potassium has remained stable, final study 3.9. Followup kidney functions with a final BUN 21, creatinine 2.39, final glucose 82. Followup lactic acid 18. Cardiac enzymes 3 sets, all within normal limits. As stated, the patient stabilized, but will require further monitoring and management of condition of the patient regarding the pneumonia as well as for the rehab. With Case Management assistance, the patient is able to be accepted to [facility] and was transferred there begins. At that facility, the patient will continue on current MARs, current diet. No equipments or supplies were necessary. No drain or Pearce was needed. Activity level as directed by myself. We will continue all the Nephrology programs, through Dr. Billy's guidance. I will be evaluating the patient daily at that facility. Adjustments were made to the protocols as needed. Dictated by LENNOX Jama Kamlesh De La Cruz MD CC/MODL /[id number]
== END 2018-11-20 14:45 | DRG 871 ==
LOC: ER 12:31 → ERHOLD 16:27 → ICU 17:51 → MED/SURG2 11-17 10:59
PROC: 5A1D70Z Performance of Urinary Filtration, Intermittent, Less than 6 Hours Per Day (ICD-10-PCS; principal; 2018-11-16)
PROC: 5A1D70Z Performance of Urinary Filtration, Intermittent, Less than 6 Hours Per Day (ICD-10-PCS; 2018-11-18)
DX: A41.9 Sepsis, unspecified organism (principal); N18.6 End stage renal disease; J18.9 Pneumonia, unspecified organism; I50.22 Chronic systolic (congestive) heart failure; I13.2 Hypertensive heart and chronic kidney disease with heart failure and with stage 5 chronic kidney disease, or end stage renal disease; I25.10 Atherosclerotic heart disease of native coronary artery without angina pectoris; E11.22 Type 2 diabetes mellitus with diabetic chronic kidney disease; Z99.2 Dependence on renal dialysis; Z79.4 Long term (current) use of insulin; I65.21 Occlusion and stenosis of right carotid artery; E78.5 Hyperlipidemia, unspecified; I48.91 Unspecified atrial fibrillation; Z95.810 Presence of automatic (implantable) cardiac defibrillator; Z90.49 Acquired absence of other specified parts of digestive tract; Z87.891 Personal history of nicotine dependence
CPT/HCPCS: 36415; 71045; 71046; 74176; 80048; 80053; 80202; 81001; 82550; 82553; 83605; 83690; 83880; 84484; 85025; 86704; 86706; 87040; 87086; 87186; 87340; 90962; 93005; 93970; 99284; J0692; J3370; J7030; J7050

== ENCOUNTER → 2020-03-07 | Day surgery (SDC) | payer MEDICARE, BC ==
[2020-03-03 11:04] LABS: BASOPHILS % 0.5 % (0.0-1.0); EOSINOPHILS # (AUTO) 0.2 (0.0-0.4); EOSINOPHILS % 2.6 % (0.0-6.0); HEMATOCRIT 34.3 % (38.2-49.6); HEMOGLOBIN 11.2 g/dL (14.0-18.0); LYMPHOCYTES # (AUTO) 0.7 (1.0-3.2); LYMPHOCYTES % 11.3 % (18.0-39.1); MEAN CORPUSCULAR HEMOGLOBIN 33.3 pg (28-32); MEAN CORPUSCULAR HGB CONC 32.7 g/dL (31-35); MEAN CORPUSCULAR VOLUME 102.1 fL (81-99); MONOCYTES # (AUTO) 0.8 (0.2-0.8); MONOCYTES % 12.8 % (4.4-11.3); NEUTROPHILS # (AUTO) 4.5 (2.1-6.9); NEUTROPHILS % 72.2 % (38.7-80.0); PLATELET COUNT 154 x10e3/uL (140-360); RED BLOOD COUNT 3.36 x10e6/uL (4.3-5.7); RED CELL DISTRIBUTION WIDTH 13.7 % (11.7-14.4)
[2020-03-03 11:49] LABS: ALBUMIN 4.1 g/dL (3.5-5.0); ALBUMIN/GLOBULIN RATIO 1.1 (0.8-2.0); ANION GAP 18.7 mmol/L (8-16); CALCIUM 9.3 mg/dL (8.4-10.2); CREATININE, SERUM 6.44 mg/dL (0.72-1.25); POTASSIUM 4.7 mmol/L (3.5-5.1)
[~2020-03-07] VITALS: Ht 182.9 cm; Wt 83.5 kg
[2020-03-07] VITALS (12 sets, daily range): BP systolic 97–117; BP diastolic 48–77
[~2020-03-07] MED LIST changes: +ALPRAZOLAM 0.5 MG TAB ONE; +DIPHENHYDRAMINE HCL 25 MG CAP ONE; +FENTANYL CITRATE/PF 100MCG/2 ML INJ ONE; +HEPARIN SOD/SOD CHLORIDE 2,000 ML ONE; +IOPAMIDOL 300MG/ML 100 ML INFUS..BTL IV ONE; +LIDOCAINE HCL 2% LOCAL 20 ML VIAL ONE; +MIDAZOLAM HCL 2 MG/2 ML VIAL ONE; +SODIUM CHLORIDE 0.9% 1000ML 1,000 ML ONE
== END | disposition home or self-care (01) ==
LOC: CATH LAB 11:29
PROVIDERS: ATTEND Internal Medicine Interventional Cardiology
DX: I70.213 Atherosclerosis of native arteries of extremities with intermittent claudication, bilateral legs (principal); Z95.820 Peripheral vascular angioplasty status with implants and grafts; I71.9 Aortic aneurysm of unspecified site, without rupture; I25.10 Atherosclerotic heart disease of native coronary artery without angina pectoris; I45.10 Unspecified right bundle-branch block; G47.33 Obstructive sleep apnea (adult) (pediatric); Z01.812 Encounter for preprocedural laboratory examination; Z20.828 Contact with and (suspected) exposure to other viral communicable diseases; Z79.02 Long term (current) use of antithrombotics/antiplatelets; Z95.810 Presence of automatic (implantable) cardiac defibrillator
CPT/HCPCS: 36200; 36415; 75630; 80053; 85025; C1769 ×2; J2001; J2250; J3010; J7030; Q9967; U0002; 99152